=== PATIENT | male | born 1935 | race Caucasian/White ===

== ENCOUNTER 2021-08-26 10:10 | Emergency (ER) | payer MEDICARE, OTHER, SELFPAY ==
[2021-08-26] VITALS (20 sets, daily range): BP systolic 112–153; BP diastolic 67–112; PULSE 68–101; RESP 14–30; TEMP 36–36.6; O2SAT 99–100
--- NOTE | ~2021-08-26 | XR_ITS ---
EXAMINATION: XR chest 2V DATE: 08/26/2021 10:37 INDICATION: General weakness TECHNIQUE: Frontal and lateral views of the chest are obtained COMPARISON: None available FINDINGS: Cardiomegaly is noted. There is a diffuse interstitial pattern. There are small pleural eff usions. There are changes of cardiac valve surgery. There is moderate thoracic spondylosis. There are minimal airspace opacities of the lung bases. IMPRESSION: 1. Cardiomegaly with pulmonary edema. 2. Small pleural effusions. 3. Bibasilar airspace opacities, consistent with atelectasis versus pneumonia. Reviewed, dictated and finalized at location A.
--- NOTE | 2021-08-26 10:23 | ECG_ITS ---
Measurements Intervals [place] Rate: 79 P: 64 HI: 194 QRS: -20 QRSD: 158 T: 119 QT: 408 QTc: 470 Interpretive Statements SINUS RHYTHM LEFT BUNDLE BRANCH BLOCK BASELINE ARTIFACT- II, III, AVR, AVF, V2-V6 ABNORMAL ECG Electronically Signed On 08-26-2021 13:05:51 CDT by Alfredo Muhammad D.O.
--- NOTE | 2021-08-26 11:00 | ED.GENADULT ---
HPI - General Adult General Chief complaint: Unspecified Stated complaint: generalized weakness, sob with activity Time Seen by Provider: 08/26/21 10:58 Source: patient History of Present Illness HPI narrative: Patient presents with multiple complaints. Patient reports he has got left hip pain and sciatica that has been going on since last night. This morning he reported some shortness of breath and felt like his heart was racing. He also reported some lightheadedness. He was concerned about symptoms so he came to the ER for evaluation. Reports he is overall feeling better but continues have mild sensation of shortness of breath and palpitations. Reports history of valvular disorder is on blood thinners denies prior history of CHF or A. fib. 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 Denies recent fevers, cough, congestion Related Data Allergies Allergy/AdvReac Type Severity Reaction Status Date / Time No Known Allergies Allergy Verified 08/26/21 11:31 Review of Systems Review of Systems: CONSTITUTIONAL: Denies fever, chills, or sweats. EYES: Denies visual changes, redness, or discharge. ENT: Denies rhinorrhea, congestion, sore throat, or otalgia. CARDIOVASCULAR: Denies chest pain, palpitations, or edema. RESPIRATORY: Denies cough GASTROINTESTINAL: Denies abdominal pain, nausea, vomiting, or diarrhea. GENITOURINARY: Denies dysuria or hematuria. SKIN: Denies rash or itching. MUSCULOSKELETAL: Denies back pain, joint pain, or myalgia. NEUROLOGIC: Denies headache, numbness, dizziness, or weakness. PSYCHIATRIC: Denies anxiety or depression. All systems reviewed & are unremarkable except as noted in HPI and below PMFSH Past Medical History Medical History (Updated 08/26/21 @ 12:56 by Devon Smith MD) Hypertension Social History Social History Alcohol intake: current Exam Narrative: GENERAL: Well-appearing, well-nourished, and in no acute distress. HEAD: Normocephalic, atraumatic. EYES: PERRLA and EOMI. ENT: Nares clear, no rhinorrhea or epistaxis. Mucous membranes moist. NECK: Supple. No masses. No JVD CHEST: Clear to auscultation. No respiratory distress. No wheezes rales or rhonchi HEART: Regular rate and rhythm. No murmur heard. Normal peripheral pulses. ABDOMEN: Soft, nontender, nondistended, normal active bowel sounds. EXTREMITIES: Normal range of motion. No edema. SKIN: Warm, dry, no rash. NEURO: No focal deficits. Alert and oriented x3. PSYCH: Normal mood and affect. Course Reevaluation(s) Reevaluation #1: Patient reports feeling much improved results reviewed with patient. Patient comfortable outpatient plan. Date: 08/26/21 Time: 12:50 Vital Signs Vital signs: Vital Signs Temperature 36.0 C L 08/26/21 10:17 Pulse Rate 88 08/26/21 10:17 Respiratory Rate 16 08/26/21 10:17 Blood Pressure 145/67 H 08/26/21 10:17 Pulse Oximetry 99 08/26/21 10:17 Temperature 36.6 C 08/26/21 13:46 Pulse Rate 68 08/26/21 13:46 Respiratory Rate 14 08/26/21 13:46 Blood Pressure 147/84 H 08/26/21 13:46 Pulse Oximetry 100 08/26/21 13:46 Medical Decision Making MDM Narrative Medical decision making narrative: H&P as above, vss, pt looks clinically well, exam without focal areas of bony tenderness no crackles noted on exam no significant lower extremity edema, labs reassuring, img with possible pulmonary edema, additional labs/img considered, symptomatic relief available as needed, on reevaluation pt continues to looks clinically well. Symptoms remain of unclear etiology patient may have had transient arrhythmia given his known chronic valve however no elevated troponin no arrhythmias captured on the monitor EKG without acute ischemia. Patient's chest x-ray did show some mild pulmonary edema likely related to patient's valve disorder there is no crackles appreciated no tachycardia no increased oxygen requirement. Given reassuring vi
[2021-08-26 11:37] LABS: Basophils Percent Auto 0.6 % (0.2-1.2); Eosinophils Absolute Auto 0.2 K/mm3 (0-0.3); Eosinophils Percent Auto 3.5 % (0-4.4); Hematocrit 34.5 % (42.0-52.0); Immature Granulocyte Absolute 0.04 K/mm3 (0.00-0.031); Immature Granulocyte Percent A 0.6 % (0-0.5); Lymphocytes Absolute Auto 1.57 K/mm3 (0.9-3.2); Mean Corpuscular HGB Conc 31.9 g/dl (32-36); Mean Corpuscular Hemoglobin 31.8 pg (26-34); Mean Corpuscular Volume 99.7 fl (80-100); Mean Platelet Volume 9.8 fl (7.4-10.4); Monocytes Absolute Auto 0.5 K/mm3 (0.1-0.6); Monocytes Percent Auto 7.6 % (2.6-8.5); Neutrophils Absolute Auto 4.4 K/mm3 (1.3-6.7); Neutrophils Percent Auto 64.7 % (45.5-73.1); Platelet Count Result 224 k/mm3 (150-375); Red Blood Count 3.46 M/mm3 (4.6-6.20); Red Cell Distribution Width 12.9 % (11.5-14.5); White Blood Count 6.8 K/mm3 (4.5-10.0)
[2021-08-26 11:40] LABS: Add Urine Microscopic? NO; Appearance Urine Clear (Clear); Bilirubin Urine Negative (Negative); Blood Urine Negative (Negative); Color Urine Yellow (Yellow); Glucose Urine UA Negative (Negative); Ketones Urine Negative (Negative); Leukocyte Esterase Ur Negative LEU/UL (Negative); Nitrate Urine Negative (Negative); Protein Urine Negative (Negative); Specific Grav Ur 1.015 (1.001-1.035); Urobilinogen Urine Negative mg/dL (<2.0)
[2021-08-26] MEDS: Please add drug allergy info to patient profile. 1 EACH XX (11:44)
[2021-08-26] MEDS: ACETAMINOPHEN 500 MG TABLET 1000 MG PO (11:44)
[2021-08-26 11:56] LABS: Alanine Aminotransferase 28 U/L (4-50); Albumin Level 3.8 g/dL (3.5-5.1); Alkaline Phosphatase 65 U/L (38-126); Anion Gap 6 mmol/L (8-16); Aspartate Amino Transferase 37 U/L (17-59); Bilirubin,Total 0.5 mg/dL (0.2-1.3); Blood Urea Nitrogen 39 mg/dL (9-20); Calcium 9.4 mg/dL (8.4-10.2); Carbon Dioxide 26 mmol/L (22-30); Chloride 107 mmol/L (98-107); Estimated CRCL calculation 30 ml/min; Estimated Glomerular Filt Rate 39; Glucose 93 mg/dL (65-110); Potassium 4.5 mmol/L (3.4-5.0); Sodium 139 mmol/L (137-145)
[2021-08-26 12:07] LABS: Troponin I 0.016 ng/mL (0.000-0.034)
== END 2021-08-26 13:47 | disposition home or self-care (01) ==
PROVIDERS: Emergency Provider Emergency Medicine; PCP Emergency Medicine
DX: R00.2 Palpitations (principal); I10 Essential (primary) hypertension; I38 Endocarditis, valve unspecified; Z79.01 Long term (current) use of anticoagulants; I44.7 Left bundle-branch block, unspecified; I51.7 Cardiomegaly; R91.8 Other nonspecific abnormal finding of lung field
CPT/HCPCS: 36415; 71046; 80053; 81003; 84484; 85025; 93005; 99284; A9270

== ENCOUNTER 2021-10-04 11:17 | Outpatient (RCR) | payer MEDICARE, OTHER, SELFPAY ==
[2021-07-19 12:10] LABS: Basophils Absolute Auto 0.1 K/mm3 (0.0-0.1); Basophils Percent Auto 0.6 % (0.2-1.2); Eosinophils Absolute Auto 0.4 K/mm3 (0-0.3); Eosinophils Percent Auto 4.5 % (0-4.4); Hematocrit 37.4 % (42.0-52.0); Hemoglobin 11.4 g/dL (14.0-18.0); Immature Granulocyte Absolute 0.05 K/mm3 (0.00-0.031); Immature Granulocyte Percent A 0.6 % (0-0.5); Lymphocytes Absolute Auto 1.95 K/mm3 (0.9-3.2); Mean Corpuscular HGB Conc 30.5 g/dl (32-36); Mean Corpuscular Hemoglobin 31.1 pg (26-34); Mean Corpuscular Volume 102.2 fl (80-100); Mean Platelet Volume 9.8 fl (7.4-10.4); Monocytes Absolute Auto 0.6 K/mm3 (0.1-0.6); Monocytes Percent Auto 7.1 % (2.6-8.5); Neutrophils Absolute Auto 5.5 K/mm3 (1.3-6.7); Neutrophils Percent Auto 64.2 % (45.5-73.1); Platelet Count Result 227 k/mm3 (150-375); Red Blood Count 3.66 M/mm3 (4.6-6.20); Red Cell Distribution Width 12.7 % (11.5-14.5); White Blood Count 8.5 K/mm3 (4.5-10.0)
[2021-07-19 12:23] LABS: INR 1.6
[2021-07-19 14:43] LABS: Reticulocyte Hemoglobin Conten 35.1 pg (28.2-35.7); Reticulocyte Percent 2.43 % (0.7-4.3); Reticulocytes Absolute 0.09 B/L (32.2-175.7)
[2021-07-19 17:10] LABS: Alanine Aminotransferase 35 U/L (4-50); Albumin Level 4.2 g/dL (3.5-5.1); Alkaline Phosphatase 92 U/L (38-126); Anion Gap 8 mmol/L (8-16); Aspartate Amino Transferase 49 U/L (17-59); Bilirubin,Total 0.6 mg/dL (0.2-1.3); Blood Urea Nitrogen 48 mg/dL (9-20); Calcium 9.5 mg/dL (8.4-10.2); Carbon Dioxide 28 mmol/L (22-30); Chloride 105 mmol/L (98-107); Estimated Glomerular Filt Rate 30; Glucose 101 mg/dL (65-110); Potassium 5.1 mmol/L (3.4-5.0); Sodium 141 mmol/L (137-145)
[2021-07-19 17:48] LABS: Iron 63 ug/dL (49-181)
[2021-07-19 17:58] LABS: Percent Iron Saturation 20 % (20-50)
[2021-07-19 18:37] LABS: Folic Acid > 20.0 ng/mL (2.76->20)
[2021-07-21 16:29] LABS: Lactate Dehydrogenase 675 U/L (313-618)
[2021-07-23 10:49] LABS: Haptoglobin <8 mg/dL (43-212)
[2021-08-02 11:03] LABS: INR 1.9; Prothrombin Time 21.4 Seconds (11.1-14.7)
[2021-08-09 10:48] LABS: INR 2.3; Prothrombin Time 25.1 Seconds (11.1-14.7)
[2021-08-23 14:10] LABS: INR 4.5; Prothrombin Time 41.5 Seconds (11.1-14.7)
[2021-09-01 15:51] LABS: Basophils Percent Auto 0.5 % (0.2-1.2); Eosinophils Absolute Auto 0.3 K/mm3 (0-0.3); Eosinophils Percent Auto 4.5 % (0-4.4); Hematocrit 33.6 % (42.0-52.0); Hemoglobin 10.6 g/dL (14.0-18.0); Immature Granulocyte Absolute 0.02 K/mm3 (0.00-0.031); Immature Granulocyte Percent A 0.3 % (0-0.5); Lymphocytes Absolute Auto 1.59 K/mm3 (0.9-3.2); Lymphocytes Percent Auto 25.4 % (18.3-44.2); Mean Corpuscular HGB Conc 31.5 g/dl (32-36); Mean Corpuscular Hemoglobin 31.2 pg (26-34); Mean Corpuscular Volume 98.8 fl (80-100); Mean Platelet Volume 9.9 fl (7.4-10.4); Monocytes Absolute Auto 0.5 K/mm3 (0.1-0.6); Neutrophils Absolute Auto 3.8 K/mm3 (1.3-6.7); Neutrophils Percent Auto 61.3 % (45.5-73.1); Platelet Count Result 211 k/mm3 (150-375); Red Cell Distribution Width 13.1 % (11.5-14.5); White Blood Count 6.3 K/mm3 (4.5-10.0)
[2021-09-01 15:59] LABS: INR 3.5; Prothrombin Time 33.8 Seconds (11.1-14.7)
[2021-09-15 11:18] LABS: INR 2.5; Prothrombin Time 26.1 Seconds (11.1-14.7)
[2021-10-04 11:59] LABS: INR 2.8; Prothrombin Time 28.4 Seconds (11.1-14.7)
== END 2021-10-17 23:59 | disposition home or self-care (01) ==
LOC: ANHLAB 11:17
PROVIDERS: PCP Emergency Medicine; Referring Provider Internal Medicine; Visit Provider Specialist
DX: Z51.81 Encounter for therapeutic drug level monitoring (principal); Z95.2 Presence of prosthetic heart valve; Z79.01 Long term (current) use of anticoagulants
CPT/HCPCS: 36415; 80053; 82607; 82728; 82746; 83010; 83540; 83550; 83615; 85025; 85046; 85610

== ENCOUNTER 2021-12-20 10:18 | Outpatient (CLI) | payer MEDICARE, OTHER, SELFPAY ==
--- NOTE | ~2021-12-20 | CT_ITS ---
EXAMINATION: CT diagnostic chest wo con DATE: 12/20/2021 10:39 INDICATION: Thoracic aneurysm TECHNIQUE: Computed tomography (CT) of the chest was performed without intravenous contrast. The dose -length product (DLP) was 278.56 mGy-cm. Automated exposure control and iterative reconstruction tech nique were employed. COMPARISON: None FINDINGS: There is a fusiform aneurysm of the ascending aorta which measures 4.4 x 3.9 cm at the leve l of the main pulmonary artery. No dissection is identified within the limitations of noncontrast exa mination. There are changes of aortic valve repair. There is calcified coronary artery atherosclerosi s. There are small pleural effusions with pleural calcifications. Scattered pulmonary nodules measure up to 4 mm in the right middle lobe. There is dependent atelectasis in the lower lung zones. No path ologically enlarged thoracic lymph nodes are identified. The heart size is normal. There is moderate thoracic spondylosis. IMPRESSION: 1. 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 2. Small pleural effusions with pleural calcifications which may reflect prior asbestos exposure vers us prior infection. Reviewed, dictated and finalized at location [facility]. ERSHIP DIRECTOR IMPRESSION: 1. 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 2. Small pleural effusions with pleural calcifications which may reflect prior asbestos exposure versus prior infection.
== END 2021-12-20 10:19 | disposition home or self-care (01) ==
LOC: ANHIMG 10:19
PROVIDERS: PCP Emergency Medicine; Visit Provider Specialist
DX: I71.2 Thoracic aortic aneurysm, without rupture (principal); Z82.49 Family history of ischemic heart disease and other diseases of the circulatory system
CPT/HCPCS: 71250

== ENCOUNTER 2021-12-26 13:52 | Outpatient (RCR) | payer MEDICARE, OTHER, SELFPAY ==
[2021-11-02 14:39] LABS: INR 1.8; Prothrombin Time 20.2 Seconds (11.1-14.7)
[2021-12-26 14:27] LABS: INR 2.7
== END 2022-01-31 23:59 | disposition home or self-care (01) ==
LOC: ANHLAB 13:52
PROVIDERS: PCP Emergency Medicine; Visit Provider Specialist
DX: Z95.2 Presence of prosthetic heart valve (principal); Z79.01 Long term (current) use of anticoagulants
CPT/HCPCS: 36415; 85610

== ENCOUNTER 2022-08-23 11:09 | Outpatient (RCR) | payer MEDICARE, OTHER, SELFPAY ==
[2022-06-23 11:20] LABS: INR 3.3; Prothrombin Time 32.2 Seconds (11.1-14.7)
[2022-07-21 14:01] LABS: INR 3.4; Prothrombin Time 33.3 Seconds (11.1-14.7)
[2022-08-23 11:35] LABS: INR 3.4; Prothrombin Time 33.6 Seconds (11.1-14.7)
== END 2022-09-21 23:59 | disposition home or self-care (01) ==
LOC: ANHLAB 11:09
PROVIDERS: Specialist; Visit Provider Internal Medicine Cardiovascular Disease
DX: Z51.81 Encounter for therapeutic drug level monitoring (principal); Z95.2 Presence of prosthetic heart valve; Z79.01 Long term (current) use of anticoagulants
CPT/HCPCS: 36415; 85610

== ENCOUNTER 2022-09-05 11:54 | Outpatient (CLI) | payer MEDICARE, OTHER, SELFPAY ==
[2022-09-05 12:27] LABS: Hematocrit 36.3 % (42.0-52.0); Hemoglobin 11.3 g/dL (14.0-18.0); Mean Corpuscular HGB Conc 31.1 g/dl (32-36); Mean Corpuscular Hemoglobin 30.5 pg (26-34); Mean Corpuscular Volume 98.1 fl (80-100); Platelet Count Result 199 k/mm3 (150-375); Red Cell Distribution Width 12.9 % (11.5-14.5); White Blood Count 6.8 K/mm3 (4.5-10.0)
[2022-09-05 12:35] LABS: Anion Gap 9 mmol/L (8-16); Blood Urea Nitrogen 32 mg/dL (9-20); Calcium 9.1 mg/dL (8.4-10.2); Carbon Dioxide 27 mmol/L (22-30); Chloride 104 mmol/L (98-107); Estimated Glomerular Filt Rate 38; Glucose 88 mg/dL (65-110); Potassium 4.6 mmol/L (3.4-5.0); Sodium 140 mmol/L (137-145)
[2022-09-05 13:05] LABS: Creatinine Urine 65.6 mg/dL
[2022-09-05 13:10] LABS: MALB Creatinine Ratio 35.4 mg/g (0-30); Microalbumin Urine Random 23.2 mg/L (0-16.7)
== END 2022-09-05 11:55 | disposition home or self-care (01) ==
PROVIDERS: PCP Family Medicine Sports Medicine; Referring Provider Internal Medicine
DX: N18.32 Chronic kidney disease, stage 3b (principal)
CPT/HCPCS: 36415; 80048; 82043; 85027

== ENCOUNTER 2022-11-13 13:54 | Outpatient (CLI) | payer MEDICARE, SELFPAY ==
[2022-11-13 14:59] LABS: Basophils Percent Auto 0.4 % (0.2-1.2); Eosinophils Absolute Auto 0.1 K/mm3 (0-0.3); Eosinophils Percent Auto 1.3 % (0-4.4); Hematocrit 36.9 % (42.0-52.0); Hemoglobin 11.2 g/dL (14.0-18.0); Immature Granulocyte Absolute 0.02 K/mm3 (0.00-0.031); Immature Granulocyte Percent A 0.4 % (0-0.5); Lymphocytes Absolute Auto 1.03 K/mm3 (0.9-3.2); Lymphocytes Percent Auto 19.1 % (18.3-44.2); Mean Corpuscular HGB Conc 30.4 g/dl (32-36); Mean Corpuscular Hemoglobin 29.2 pg (26-34); Mean Corpuscular Volume 96.1 fl (80-100); Mean Platelet Volume 10.7 fl (7.4-10.4); Monocytes Absolute Auto 0.3 K/mm3 (0.1-0.6); Monocytes Percent Auto 5.2 % (2.6-8.5); Neutrophils Percent Auto 73.6 % (45.5-73.1); Platelet Count Result 195 k/mm3 (150-375); Red Blood Count 3.84 M/mm3 (4.6-6.20); Red Cell Distribution Width 13.4 % (11.5-14.5); White Blood Count 5.4 K/mm3 (4.5-10.0)
[2022-11-13 15:06] LABS: Alanine Aminotransferase 27 U/L (6-50); Albumin Level 3.8 g/dL (3.5-5.1); Alkaline Phosphatase 83 U/L (38-126); Anion Gap 6 mmol/L (8-16); Aspartate Amino Transferase 35 U/L (17-59); Bilirubin,Total 0.4 mg/dL (0.2-1.3); Blood Urea Nitrogen 39 mg/dL (9-20); Calcium 9.2 mg/dL (8.4-10.2); Carbon Dioxide 28 mmol/L (22-30); Chloride 107 mmol/L (98-107); Estimated Glomerular Filt Rate 34; Glucose 139 mg/dL (65-110); Lactate Dehydrogenase 245 U/L (120-246); Potassium 4.7 mmol/L (3.4-5.0); Sodium 141 mmol/L (137-145)
[2022-11-13 16:09] LABS: Iron 49 ug/dL (49-181)
[2022-11-13 16:12] LABS: Folic Acid > 20.0 ng/mL (2.76->20)
[2022-11-13 16:21] LABS: Percent Iron Saturation 16 % (20-50)
== END 2022-11-13 13:55 | disposition home or self-care (01) ==
PROVIDERS: PCP Family Medicine Sports Medicine
DX: D59.10 Autoimmune hemolytic anemia, unspecified (principal); D50.1 Sideropenic dysphagia; E53.8 Deficiency of other specified B group vitamins; N18.2 Chronic kidney disease, stage 2 (mild); D63.1 Anemia in chronic kidney disease
CPT/HCPCS: 36415; 80053; 82607; 82728; 82746; 83540; 83550; 83615; 85025; 85610

== ENCOUNTER 2023-01-12 12:02 | Outpatient (RCR) | payer MEDICARE, SELFPAY ==
[2022-10-17 10:20] LABS: INR 3.2; Prothrombin Time 31.8 Seconds (11.1-14.7)
[2022-11-13 15:10] LABS: INR 3.2; Prothrombin Time 31.8 Seconds (11.1-14.7)
[2022-12-12 15:13] LABS: INR 3.3; Prothrombin Time 32.3 Seconds (11.1-14.7)
[2023-01-12 12:30] LABS: INR 3.6; Prothrombin Time 34.6 Seconds (11.1-14.7)
== END 2023-01-15 23:59 | disposition home or self-care (01) ==
LOC: ANHLAB 12:02
PROVIDERS: PCP Family Medicine Sports Medicine; Visit Provider Internal Medicine Cardiovascular Disease
DX: Z51.81 Encounter for therapeutic drug level monitoring (principal); Z95.2 Presence of prosthetic heart valve; Z79.01 Long term (current) use of anticoagulants
CPT/HCPCS: 36415; 85610

== ENCOUNTER 2023-03-07 11:57 | Outpatient (CLI) | payer MEDICARE, SELFPAY ==
[2023-03-07 12:31] LABS: Hematocrit 38.4 % (42.0-52.0); Hemoglobin 12.3 g/dL (14.0-18.0); Mean Corpuscular Hemoglobin 29.9 pg (26-34); Mean Corpuscular Volume 93.2 fl (80-100); Mean Platelet Volume 10.9 fl (7.4-10.4); Platelet Count Result 188 k/mm3 (150-375); Red Blood Count 4.12 M/mm3 (4.6-6.20); White Blood Count 5.8 K/mm3 (4.5-10.0)
[2023-03-07 12:49] LABS: Anion Gap 5 mmol/L (8-16); Blood Urea Nitrogen 34 mg/dL (9-20); Calcium 8.9 mg/dL (8.4-10.2); Carbon Dioxide 27 mmol/L (22-30); Chloride 106 mmol/L (98-107); Estimated Glomerular Filt Rate 34; Glucose 83 mg/dL (65-110); Potassium 4.3 mmol/L (3.4-5.0); Sodium 138 mmol/L (137-145)
[2023-03-07 13:54] LABS: Creatinine Urine 75.1 mg/dL
[2023-03-07 13:58] LABS: MALB Creatinine Ratio 19.8 mg/g (0-30); Microalbumin Urine Random 14.9 mg/L (0-16.7)
== END 2023-03-07 11:58 | disposition home or self-care (01) ==
PROVIDERS: PCP Family Medicine Sports Medicine
DX: N18.32 Chronic kidney disease, stage 3b (principal)
CPT/HCPCS: 36415; 80048; 82043; 85027

== ENCOUNTER 2023-04-17 10:30 | Outpatient (RCR) | payer MEDICARE, SELFPAY ==
[2023-02-09 09:00] LABS: INR 3.7; Prothrombin Time 35.8 Seconds (11.1-14.7)
[2023-02-12 16:58] LABS: INR 2.1; Prothrombin Time 22.4 Seconds (11.1-14.7)
[2023-04-17 11:05] LABS: Prothrombin Time 33.2 Seconds (11.1-14.7)
== END 2023-05-10 23:59 | disposition home or self-care (01) ==
LOC: ANHLAB 10:30
PROVIDERS: PCP Family Medicine Sports Medicine; Visit Provider Internal Medicine Cardiovascular Disease
DX: Z51.81 Encounter for therapeutic drug level monitoring (principal); Z95.2 Presence of prosthetic heart valve; Z79.01 Long term (current) use of anticoagulants
CPT/HCPCS: 36415; 85610

== ENCOUNTER 2023-07-26 08:22 | Emergency (ER) | payer MEDICARE, SELFPAY ==
[2023-07-26] VITALS (28 sets, daily range): BP systolic 142–164; BP diastolic 68–97; PULSE 71–122; RESP 14–33; TEMP 36.1; O2SAT 93–100
--- NOTE | 2023-07-26 08:28 | ECG_ITS ---
Measurements Intervals [place] Rate: 80 P: 54 AR: 192 QRS: -37 QRSD: 164 T: 135 QT: 427 QTc: 493 Interpretive Statements SINUS RHYTHM LEFT AXIS DEVIATION LEFT BUNDLE BRANCH BLOCK ABNORMAL ECG COMPARED TO ECG 08/26/2021 11:12:19 LEFT-AXIS DEVIATION NOW PRESENT Electronically Signed On 07-26-2023 8:37:13 CDT by Alfredo Muhammad D.O.
--- NOTE | 2023-07-26 08:35 | ED.GENADULT ---
HPI - General Adult General Chief complaint: Dizziness Stated complaint: dizziness Time Seen by Provider: 07/26/23 08:27 History of Present Illness HPI narrative: Patient is a 87-year-old male who presents ER with dizziness. Reports he feels unsteady when he goes from lying to sitting or sitting to standing. Improves with time. No nausea or vomiting. No fall or trauma. Staff at patient's facility became nervous because he reported to them that he took too much Coumadin last night as they want him to come in. According to the facility paperwork patient is supposed to be on 7.5 mg of Coumadin on Mondays and Fridays and 5 mg of Coumadin every other day. Yesterday he was supposed to take a 2.5 mg tab of Coumadin, patient reports he took a 7.5 mg tab however he the facility documentation shows that he should only be taking a 5 mg tab. 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 Matos with [facility]. Patient has no numbness or weakness of the arms or legs. No slurred speech. He has no other complaints at this time. Related Data Allergies Allergy/AdvReac Type Severity Reaction Status Date / Time No Known Allergies Allergy Verified 08/26/21 11:31 Review of Systems Review of Systems: All systems reviewed & are unremarkable except as noted in HPI and below Constitutional: Constitutional: Denies chills, Denies fatigue and Denies fever(s) Eyes: Eyes: Denies change in vision ENT: Reports dizziness, Denies nasal congestion and Denies sore throat Cardiovascular: Cardiovascular: Denies chest pain, Denies rapid heart rate and Denies radiating jaw, neck or arm pain Gastrointestinal: Gastrointestinal: Reports no additional gastrointestinal complaints Genitourinary: Genitourinary: Reports no additional male genitourinary complaints Neurologic: Reports dizziness, Denies syncope, Denies headache(s), Denies focal weakness and Denies numbness PMFSH Past Medical History Medical History (Updated 07/26/23 @ 12:18 by Leonides Garcia MD) Hypertension Surgical History Surgical History (Updated 07/26/23 @ 12:18 by Leonides Garcia MD) Mechanical heart valve present Social History Social History Alcohol intake: current Exam Narrative: GENERAL: Well-appearing, well-nourished, and in no acute distress. HEAD: Normocephalic, atraumatic. EYES: PERRL and EOMI. ENT: Mucous membranes moist. TMs normal. Ear canals free of cerumen. CHEST: Clear to auscultation. No respiratory distress. HEART: Regular rate and rhythm. Normal peripheral pulses. Clicking of mechanical valve noted. ABDOMEN: Soft, nontender, nondistended. EXTREMITIES: Normal range of motion. No edema. SKIN: Warm, dry, no rash. NEURO: No focal deficits. No facial asymmetry. No upper or lower extremity drift. Sensation intact grossly in arms and legs. No slurred speech or dysarthria. Alert and oriented x3. Reproducible dizziness with lying to sitting. PSYCH: Normal mood and affect. Course Course Emergency Course: Discussed case with patient's cardiology clinic. It is recommended he take Coumadin 2.5 mg tonight. His Coumadin clinic note recommends Coumadin 7.5 mg on Mondays and 5 mg every other day after that. He will be restarted on this regimen. Patient verbalized understanding. Patient no longer dizzy after meclizine. Ambulates with steady gait. Discharge home. Vital Signs Vital signs: Vital Signs Temperature 97.0 F L 07/26/23 08:25 Pulse Rate 83 07/26/23 08:25 Respiratory Rate 21 H 07/26/23 08:25 Blood Pressure 161/92 H 07/26/23 08:25 Pulse Oximetry 93 07/26/23 08:25 Oxygen Delivery Room Air 07/26/23 08:25 Temperature 97.0 F L 07/26/23 08:25 Pulse Rate 91 07/26/23 11:19 Respiratory Rate 26 H 07/26/23 11:19 Blood Pressure 151/93 H 07/26/23 10:01 Pulse Oximetry 97 07/26/23 10:20 Oxygen Delivery Room Air 07/26/23 08:25 Medical Decision Making
[2023-07-26 08:42] LABS: Basophils Percent Auto 0.6 % (0.2-1.2); Eosinophils Absolute Auto 0.2 K/mm3 (0-0.3); Immature Granulocyte Absolute 0.01 K/mm3 (0.00-0.031); Immature Granulocyte Percent A 0.2 % (0-0.5); Lymphocytes Absolute Auto 1.09 K/mm3 (0.9-3.2); Lymphocytes Percent Auto 23.1 % (18.3-44.2); Mean Corpuscular HGB Conc 30.6 g/dl (32-36); Mean Platelet Volume 10.7 fl (7.4-10.4); Monocytes Absolute Auto 0.4 K/mm3 (0.1-0.6); Monocytes Percent Auto 8.1 % (2.6-8.5); Platelet Count Result 171 k/mm3 (150-375); Red Blood Count 3.79 M/mm3 (4.6-6.20); Red Cell Distribution Width 13.8 % (11.5-14.5); White Blood Count 4.7 K/mm3 (4.5-10.0)
[2023-07-26 08:52] LABS: Alanine Aminotransferase 34 U/L (6-50); Albumin Level 3.6 g/dL (3.5-5.1); Alkaline Phosphatase 68 U/L (38-126); Anion Gap 3 mmol/L (8-16); Aspartate Amino Transferase 49 U/L (17-59); Bilirubin,Total 0.5 mg/dL (0.2-1.3); Blood Urea Nitrogen 35 mg/dL (9-20); Calcium 8.6 mg/dL (8.4-10.2); Carbon Dioxide 28 mmol/L (22-30); Chloride 106 mmol/L (98-107); Estimated CRCL calculation 29 ml/min; Estimated Glomerular Filt Rate 38; Glucose 106 mg/dL (65-110); Potassium 4.2 mmol/L (3.4-5.0); Sodium 137 mmol/L (137-145)
[2023-07-26 09:18] LABS: INR 4.2; Partial Thromboplastin Time 34.8 SECONDS (22.3-36.8); Prothrombin Time 43.7 Seconds (11.1-14.7)
[2023-07-26] MEDS: MECLIZINE HCL 25 MG TABLET PO (09:28)
--- NOTE | 2023-07-26 11:38 | PC.NURSE ---
Patient ambulatory to the BR with use of cane. Reports very mild dizziness but reports that it is much improved from this morning.
== END 2023-07-26 12:35 ==
PROVIDERS: Emergency Provider Emergency Medicine; PCP Internal Medicine
DX: T45.511A Poisoning by anticoagulants, accidental (unintentional), initial encounter (principal); R42 Dizziness and giddiness; I10 Essential (primary) hypertension; I44.7 Left bundle-branch block, unspecified
CPT/HCPCS: 36415; 80053; 85025; 85610; 85730; 93005; 99284; 99291; A9270

== ENCOUNTER 2023-08-03 12:13 | Inpatient (IN) | payer MEDICARE, SELFPAY ==
[2023-08-03] VITALS (39 sets, daily range): BP systolic 114–188; BP diastolic 57–97; PULSE 69–106; RESP 15–36; TEMP 36.2–36.4; O2SAT 90–100; BMI 25.3
--- NOTE | ~2023-08-03 | CT_ITS ---
EXAMINATION: CTA chest PE abdomen pel DATE: 08/03/2023 13:44 INDICATION: Shortness of breath. Hypoxia. Nausea and vomiting. TECHNIQUE: Computed tomography angiography (CTA) of the chest, abdomen and pelvis was performed with 100 mL Omnipaque-350 intravenous contrast timed to evaluate the pulmonary arteries. Coronal maximum i ntensity projection 3D-reconstructions were created by the technologist. Automated exposure control a nd iterative reconstruction technique were employed. Exam dose: 605.33 mGy-cm total exam DLP. COMPARISON: 08/03/2023 portable AP chest FINDINGS: There is diagnostic contrast enhancement of the pulmonary arteries and no evidence of pulmo nary embolism. Status post sternotomy and aortic valve replacement. Cardiomegaly. No pericardial effusion. Coronary artery calcifications. There is aortic and great vess el calcification. Mild bilateral hilar and mediastinal prominence, likely reactive. Small loculated left pleural effusi ons. Fluid in the right greater fissure.. There are extensive bilateral pleural calcifications, likely due to prior asbestos exposure. Bilateral mid and particularly lower lung infiltrates, greatest involvement of the lower lobes. The liver, gallbladder, bile ducts, spleen, pancreas and pancreatic duct are unremarkable other than some calcified splenic granulomas and diffuse pancreatic atrophy. Normal morphology of the adrenal glands. Several renal cysts, the largest situated on the left, measuring 1.9 cm. No urinary tract calculus or hydroureteronephrosis. The urinary bladder is unremarkable. Prostate enlargement and calcifications. Diverticulosis of the colon; no CT evidence of diverticulitis no bowel obstruction, bowel wall thicke jacob, pneumatosis or intraperitoneal free air. There is atherosclerotic calcification but normal caliber of the abdominal aorta. No intraperitoneal or retroperitoneal or pelvic mass lesion or adenopathy or ascites. Small fat-containing umbilical hernia. Severe degenerative disease at C6-7. Old left rib fractures. Moderate to severe degenerative disc disease of the lumbar and lumbosacral spine. Bilateral hip osteo arthritis. No suspicious osteolytic or osteoblastic lesions are noted. IMPRESSION: No evidence of pulmonary embolism Status post sternotomy and aortic valve replacement Cardiomegaly, coronary and aortic atherosclerosis Extensive infiltrates primarily in the mid and lower lung zones, especially lower lobes. The retrolis thesis includes pulmonary edema, pneumonia, aspiration Bilateral pleural effusions Renal cysts Diverticulosis of the colon Reviewed, dictated and finalized at [facility]. Reviewed, dictated and finalized at location B. IMPRESSION: No evidence of pulmonary embolism Status post sternotomy and aortic valve replacement Cardiomegaly, coronary and aortic atherosclerosis Extensive infiltrates primarily in the mid and lower lung zones, especially low er lobes. The retrolisthesis includes pulmonary edema, pneumonia, aspiration Bilateral pleural effusions Renal cysts Diverticulosis of the colon
--- NOTE | ~2023-08-03 | CT_ITS ---
EXAMINATION: CT brain wo con DATE: 08/03/2023 13:44 INDICATION: Vertigo TECHNIQUE: Computed tomography (CT) of the head was performed without intravenous contrast. Sagittal and coronal reconstructions were performed. The mA was adjusted according to patient size. Iterative reconstruction technique was employed. The dose-length product was 605.33 mGy-cm. COMPARISON: None FINDINGS: No acute intracranial hemorrhage, acute infarction or abnormal extra axial fluid collection. Small ol d infarct in the left cerebellar hemisphere. There is mild to moderate scattered white matter hypoatt enuation consistent with chronic small vessel ischemic disease. Symmetric prominence of the sulci and and subarachnoid spaces overlying the convexities consistent with mild to moderate age-appropriate d iffuse cerebral volume loss. Ventricles are normal and symmetric. No mass/mass effect. Changes of nuria ateral intraocular lens replacement. Paranasal sinuses, mastoid air cells and middle ear cavities are clear. The left mastoid is hyperpneumatized. IMPRESSION: 1. Small old left cerebellar infarct. No acute intracranial process. 2. Age-related changes including mild to moderate diffuse volume loss and mild to moderate scattered white matter hypoattenuation consistent with chronic small vessel ischemic disease. Reviewed, dictated and finalized at location A. IMPRESSION: 1. Small old left cerebellar infarct. No acute intracranial process. 2. Age-related changes including mild to moderate diffuse volume loss and mild to moderate scattered white matter hypoattenuation consistent with chronic smal l vessel ischemic disease.
--- NOTE | ~2023-08-03 | XR_ITS ---
Portable chest x-ray Comparison: 08/26/2021 Clinical History: Hypoxia Findings: There is extensive hazy and interstitial pulmonary disease, with relative sparing of the l jannette apices. No definite pleural effusion. Cardiomediastinal silhouette is stable. Bones and soft tis sues are unremarkable. Impression: Extensive hazy and interstitial pulmonary disease, basilar predominant. Findings suggest moderate pul monary edema. Correlate clinically for infection. Reviewed, dictated and finalized at location . Impression: Extensive hazy and interstitial pulmonary disease, basilar predominant. Finding s suggest moderate pulmonary edema. Correlate clinically for infection.
--- NOTE | 2023-08-03 12:24 | ECG_ITS ---
Measurements Intervals [place] Rate: 77 P: 39 GA: 196 QRS: -30 QRSD: 169 T: 133 QT: 414 QTc: 471 Interpretive Statements SINUS RHYTHM WITH SINUS ARRHYTHMIA POSSIBLE LEFT ATRIAL ENLARGEMENT [-0.1mV P WAVE IN V1/V2] LEFT BUNDLE BRANCH BLOCK [120+ ms QRS DURATION, 80+ ms Q/S IN V1/V2, 85+ ms R IN I/aVL/V5/V6] COMPARED TO ECG 07/26/2023 08:33:06 SINUS ARRHYTHMIA NOW PRESENT Electronically Signed On 08-03-2023 14:32:36 CDT by Rahul Jovel M.D.
[2023-08-03 12:45] LABS: Alanine Aminotransferase 40 U/L (6-50); Albumin Level 4.1 g/dL (3.5-5.1); Alkaline Phosphatase 84 U/L (38-126); Anion Gap 7 mmol/L (8-16); Aspartate Amino Transferase 57 U/L (17-59); Bilirubin,Total 0.6 mg/dL (0.2-1.3); Blood Urea Nitrogen 31 mg/dL (9-20); Calcium 9.6 mg/dL (8.4-10.2); Carbon Dioxide 24 mmol/L (22-30); Chloride 104 mmol/L (98-107); Estimated CRCL calculation 29 ml/min; Estimated Glomerular Filt Rate 38; Glucose 140 mg/dL (65-110); Lipase 66 U/L (23-300); Potassium 4.5 mmol/L (3.4-5.0); Sodium 135 mmol/L (137-145)
[2023-08-03 12:56] LABS: Basophils Percent Auto 0.5 % (0.2-1.2); Eosinophils Absolute Auto 0.2 K/mm3 (0-0.3); Eosinophils Percent Auto 3.3 % (0-4.4); Hematocrit 40.4 % (42.0-52.0); Hemoglobin 12.6 g/dL (14.0-18.0); Immature Granulocyte Absolute 0.01 K/mm3 (0.00-0.031); Immature Granulocyte Percent A 0.2 % (0-0.5); Lymphocytes Absolute Auto 1.48 K/mm3 (0.9-3.2); Lymphocytes Percent Auto 23.1 % (18.3-44.2); Mean Corpuscular HGB Conc 31.2 g/dl (32-36); Mean Corpuscular Hemoglobin 29.2 pg (26-34); Mean Corpuscular Volume 93.7 fl (80-100); Mean Platelet Volume 10.8 fl (7.4-10.4); Monocytes Absolute Auto 0.6 K/mm3 (0.1-0.6); Monocytes Percent Auto 8.9 % (2.6-8.5); Neutrophils Absolute Auto 4.1 K/mm3 (1.3-6.7); Platelet Count Result 214 k/mm3 (150-375); Red Blood Count 4.31 M/mm3 (4.6-6.20); Red Cell Distribution Width 13.6 % (11.5-14.5); White Blood Count 6.4 K/mm3 (4.5-10.0)
--- NOTE | 2023-08-03 13:01 | ED.GENADULT ---
HPI - General Adult General Chief complaint: Nausea/Vomiting/Diarrhea Stated complaint: dizzy, n/v Time Seen by Provider: 08/03/23 12:27 Source: patient, EMS, RN notes reviewed and old records reviewed Mode of arrival: EMS Limitations: other (poor historian) History of Present Illness HPI narrative: This is an 87 year old male with history of mechanical aortic valve, chronic anticoagulation who presents for evaluation of dizziness, nausea and vomiting. PAtient states he noticed dizziness this morning at 10 am when he was trying to get off the toilet. He reports spinning and he was having difficulty getting up. He also reports nausea and vomiting this morning. EMS was called and he was found to have 80% on room air so they placed him on nasal cannula. He denies chest pain. He reports weakness for 2 weeks. He also reports nonproductive cough . He noticed bilateral leg swelling today. He denies abdominal pain, diarrhea, headache. He denies focal weakness, numbness or tingling.The facility where he lives did chest xray yesterday that shows pneumonia vs CHF. Related Data Home Medications Medication Instructions Recorded Confirmed Adults Multivitamin 1 tablet PO DAILY 08/03/23 08/03/23 aspirin 81 mg tablet,delayed 81 mg PO DAILY 08/03/23 08/03/23 release fenofibrate nanocrystallized 145 145 mg PO DAILY 08/03/23 08/03/23 mg tablet ferrous sulfate 325 mg (65 mg 325 mg PO DAILY 08/03/23 08/03/23 iron) tablet folic acid 1 mg tablet 1 mg PO DAILY 08/03/23 08/03/23 glucosamine-chondroitin 250 mg-200 1 tablet PO DAILY 08/03/23 08/03/23 mg tablet (Osteo Bi-Flex) levothyroxine 150 mcg tablet 150 mcg PO DAILY 08/03/23 08/03/23 metoprolol tartrate 25 mg tablet 25 mg PO DAILY 08/03/23 08/03/23 pravastatin 40 mg tablet 40 mg PO HS 08/03/23 08/03/23 prednisone 5 mg tablet 5 mg PO DAILY 08/03/23 08/03/23 warfarin 5 mg tablet 5 mg PO DAILY 08/03/23 08/03/23 Allergies Allergy/AdvReac Type Severity Reaction Status Date / Time colesevelam Allergy Unknown Verified 08/03/23 12:34 hydrocodone Allergy Unknown Verified 08/03/23 12:34 rosuvastatin Allergy Unknown Verified 08/03/23 12:34 Review of Systems Constitutional: Constitutional: Reports weakness (2 weeks) Cardiovascular: Cardiovascular: Denies chest pain, Denies syncope, Denies rapid heart rate, Denies irregular heart rhythm, Reports leg edema and Reports dyspnea Respiratory: Respiratory: Reports chest congestion, Reports cough, Denies hemoptysis, Denies excessive phlegm production and Reports dyspnea Gastrointestinal: Gastrointestinal: Denies abdominal pain, Denies hematochezia, Denies diarrhea, Reports nausea and Reports vomiting Genitourinary: Genitourinary: Denies hematuria, Denies dysuria, Denies penile discharge and Denies testicular pain Musculoskeletal: Musculoskeletal: Denies joint swelling, Denies loss of height and Denies muscle weakness Neurologic: Reports vertigo, Denies syncope, Denies focal weakness and Reports weakness PMF Past Medical History Medical History (Updated 08/04/23 @ 08:39 by Eva Akbar MD) Autoimmune hemolytic anemia Chronic anticoagulation Chronic kidney disease Dyslipidemia Hypertension Hypothyroidism Surgical History Surgical History (Updated 08/03/23 @ 17:07 by Angelina Taylor PA-C) 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 Smoking packs per day: 2 Smoking cigarettes per day: 40.0 Years smoked: 15 Smoking pack-years: 30.00 Smoking status: Former smoker Alcohol intake: unknown Substance use: never Lack of Transportation: No
[2023-08-03] MEDS: MECLIZINE HCL 12.5 MG TABLET PO (13:04)
[2023-08-03] MEDS: FUROSEMIDE INJ 40 MG/4 ML VIAL IV PUSH ×2 (13:04→22:02)
[2023-08-03] MEDS: ONDANSETRON INJ 4 MG/2 ML VIAL IV PUSH (13:04)
[2023-08-03 13:14] LABS: Base Excess ABG -1.4 mEq/l (+/-2.0); Fractional Inspired Oxygen 60 %; HCO3 ABG 24.5 mEq/l (22.0-26.0); Methemoglobin ABG 0.2 %THb (0-1.5); Modified Allen's Test Pass; Oxygen Content ABG 16.9 %vol (16.0-22.0); Oxygen Saturation ABG 93.7 % (95.0-100.0); Oxyhemoglobin 91.8 % THb (90.0-100.0); PCO2 ABG 45.9 mmHg (35.0-45.0); PO2 ABG 72.3 mmHg (80.0-100.0); PO2 FiO2 Ratio Arterial Blood 1.21 %; Site Drawn RIGHT RADIAL; Total Hemoglobin 13.1 g/dL (12.0-18.0); pH ABG 7.345 (7.350-7.450)
[2023-08-03 13:15] LABS: Device HIGH FLOW NASAL CANN
[2023-08-03 13:17] LABS: INR 2.5; Prothrombin Time 28.7 Seconds (11.1-14.7)
[2023-08-03 13:18] LABS: Partial Thromboplastin Time 31.5 SECONDS (22.3-36.8)
[2023-08-03 13:23] LABS: NT Pro B Type Natriuretic Pept 8960 pg/mL (19.9-100); Troponin I 0.028 ng/mL (0.000-0.034)
[2023-08-03 13:26] LABS: Lactic Acid Reflex 0.9 mmol/L (0.7-2.0)
[2023-08-03 13:51] LABS: Influenza A QL RT-PCR Negative (Negative); Influenza B QL RT-PCR Negative (Negative); SARS-CoV-2 RNA PCR Negative (Negative)
[2023-08-03 14:09] LABS: Appearance Urine Clear (Clear); Bilirubin Urine Negative (Negative); Blood Urine Negative (Negative); Color Urine Yellow (Yellow); Glucose Urine UA Negative (Negative); Ketones Urine Negative (Negative); Leukocyte Esterase Ur Negative LEU/UL (Negative); Nitrate Urine Negative (Negative); Protein Urine Negative (Negative); Specific Grav Ur 1.012 (1.001-1.035); Urobilinogen Urine 0.2 mg/dL (<2.0)
[2023-08-03 14:19] LABS: Add Urine Microscopic? NO
[2023-08-03] MEDS: AZITHROMYCIN 500 MG/NS 250 ML 500 MG/250 ML BAG 250 MG IVPB (15:05)
--- NOTE | 2023-08-03 17:02 | PM.IMHP ---
H&P: HPI History of Present Illness Date/Time: 08/03/23 17:45 Chief Complaint: Nausea, vomiting, and dizziness. Narrative: This is a pleasant 87-year-old male with history of mechanical aortic valve replacement on warfarin, hypertension, hyperlipidemia, chronic kidney disease, and hypothyroidism who presented to the emergency department via EMS from [facility] for evaluation of nausea, vomiting, and dizziness. There is a virus going around his assisted living facility and nearly 2 weeks ago he developed symptoms to include sinus congestion, mild sore throat, and cough productive of clear sputum. He feels short of breath and has developed swelling in his legs the last couple of days. He has felt increasingly weak since that time and more recently he has developed nausea and vomiting. Today when he tried to get up he felt extremely lightheaded and dizzy and felt as though he was going to pass out.He denies fever, headache, neck ache, chest pain, pleuritic pain, racing heart, orthopnea, paroxysmal nocturnal dyspnea, diarrhea, dysuria, and calf pain. Emergency services were summoned and on EMS arrival he was pale and diaphoretic with an SpO2 in the 80s on room air. He was placed on 6 L nasal cannula and was requiring up to 10 L high-flow by the time he was admitted to the floor. In the ED: He was afebrile on arrival. Blood pressures have been stable if not a bit elevated. Oxygen has been weaned to 5 L. labs were significant for a WBC count of 6.4, hemoglobin 12.6, INR 2.5, sodium 135, BUN 31, creatinine 1.70, proBNP 8960, troponin 0.016. He tested negative for influenza and COVID. Head CT did not show any acute findings. CTA of the chest, abdomen, and pelvis showed was negative for pulmonary embolism but did note cardiomegaly and extensive infiltrates in the mid to lower lung zones and bilateral pleural effusions. He received a dose of azithromycin and ceftriaxone in the ED for possible pneumonia and furosemide 40 mg IV. He is being admitted to the IMU for close monitoring given high oxygen requirements and treatment of pneumonia and presumed new onset congestive heart failure. At the time my evaluation he is feeling a bit better. He reports good urine output with the Lasix. Review of Systems Review of Systems: Twelve systems were reviewed and are negative except for as per HPI. 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 Code status: Do not resuscitate. Smoking packs per day: 2 Smoking cigarettes per day: 40.0 Years smoked: 15 Smoking pack-years: 30.00 Smoking status: Former smoker Alcohol intake: unknown Substance use: never Lack of Transportation: No Lack of Food: Never True Current Housing: I Have Housing Concerned About Future Housing: No Difficulty Paying Gas/Electric Bills: No Difficulty Paying for Meds: No Currently Unemployed: No Education: Trade/Vocational Certificate Difficulty w/ Childcare or Family Care: No Spiritual care concerns: No Meds Home Medications and Allergies Home Medications Medication Instructions Recorded Confirmed Type meclizine 12.5 mg tablet 12.5 mg PO TID PRN dizziness #10 07/26/23 08/03/23 Rx tabs Adults Multivitamin 1 tablet PO DAILY 08/03/23 08/03/23 History aspirin 81 mg tablet
--- NOTE | 2023-08-03 18:02 | ADMGEN ---
This patient, Binu Adorno, was admitted to IMU Room 214-01. Patient/family oriented to hospital policies and general routines including ID bracelet, bed and alarms, visiting hours, pain management, procedures, bathroom and other care routines, personal items, smoking policy, room service/diet, and visiting hours. Information on how to activate the Rapid Response Team has been discussed. Patient/Family are encouraged to report perceived risks to care and to ask questions if they do not understand what they are told or what they should do.
[2023-08-04] VITALS (17 sets, daily range): BP systolic 116–140; BP diastolic 60–70; PULSE 74–116; RESP 16–28; TEMP 35.9–36.6; O2SAT 90–99
[2023-08-04] MEDS: PRAVASTATIN SODIUM 20 MG TABLET 40 MG PO ×2 (00:11→21:22)
--- NOTE | 2023-08-04 01:07 | ECHO_ITS ---
Patient Info Name: Binu Adorno Age: 87 years : 1935 Gender: Male Ht: 70 in Wt: 176 lbs BSA: 1.99 m2 HR: 85 bpm BP: 116 / 68 mmHg Heart Rhythm: Sinus Rhythm Technical Quality: Fair Exam Date: 08/04/2023 9:28 AM Exam Location: [facility] Pulmonary Exam Room: 214 Patient Status: Inpatient Admit Date: 08/03/2023 Staff Ordering Physician: Angelina Taylor PA-C Fractionation Supervisor: Leni Guevara RDCS Attending Provider: Seferino Jimenez MD Referring Physician: Brandon NETTLES; Exam Type: CA echo dop color flow w con Study Info Indications - CHF HTN AVR Complete two-dimensional, color flow and Doppler transthoracic echocardiogram is performed with contrast to opacify the left ventricle and to improve the deliniation of the left ventricle endocardial borders. Contrast/Agitated Saline Contrast/Ag. Saline: Definity Amount: 2.00 ml Administered By: Leni Guevara [facility] Existing IV Access: Yes IV Access Condition: patent with no signs of infiltration Summary 1. Left ventricular chamber dimension is mildly enlarged. 2. Left ventricular systolic function is severely reduced, estimated at <15%. 3. There is mildly increased left ventricular wall thickness. 4. The left ventricular diastolic function is grade I diastolic dysfunction. 5. The apex, inferior wall, inferoseptal wall, mid anterior wall, and basal anteroseptal are akinetic. 6. The basal anterior wall, basal anterolateral wall, mid anterolateral wall, and mid inferolateral wall are hypokinetic. 7. The mid anteroseptal is dyskinetic. 8. Left atrial chamber dimension is mildly enlarged. 9. There is mild regurgitation of the mechanical aortic valve. 10. There is mild to moderate mitral valve regurgitation. 11. The mitral valve has thickened leaflets and calcified leaflets. 12. There is mild tricuspid valve regurgitation. Left Ventricle Left ventricular chamber dimension is mildly enlarged. Left ventricular systolic function is severely reduced, estimated at <15%. There is mildly increased left ventricular wall thickness. The left ventricular diastolic function is grade I diastolic dysfunction. The apex, inferior wall, inferoseptal wall, mid anterior wall, and basal anteroseptal are akinetic. The basal anterior wall, basal anterolateral wall, mid anterolateral wall, and mid inferolateral wall are hypokinetic. The mid anteroseptal is dyskinetic. All other jiménez appear normal. Right Ventricle Right ventricular chamber dimension is normal. Right ventricular systolic function is normal. Left Atria Left atrial chamber dimension is mildly enlarged. Right Atria Right atrial chamber dimension is normal. Atrial Septum Intact interatrial septum visualized by color flow imaging. Aortic Valve There is no mechanical aortic valve stenosis. There is mild regurgitation of the mechanical aortic valve. Pulmonic Valve The pulmonic valve is normal. There is no pulmonic valve stenosis. There is trace pulmonic regurgitation. Mitral Valve The mitral valve has thickened leaflets and calcified leaflets. There is no mitral valve stenosis. There is mild to moderate mitral valve regurgitation. Tricuspid Valve The tricuspid valve leaflets are normal. There is no significant tricuspid valve stenosis. There is mild tricuspid valve regurgitation. No pulmonary hypertension, estimated pulmonary arterial systolic pressure is 24 mmHg. Pericardium/Pleural The pericardium appears normal. There is trivial pericardial effusion. Inferior Vena Cava Normal infer
[2023-08-04] MEDS: MENTHOL 10% / METHYL SALICYLATE 15% 57 GM TUBE 1 APPLIC TOPICAL (04:49)
[2023-08-04 05:08] LABS: Basophils Percent Auto 0.2 % (0.2-1.2); Eosinophils Absolute Auto 0.2 K/mm3 (0-0.3); Eosinophils Percent Auto 2.9 % (0-4.4); Hematocrit 39.8 % (42.0-52.0); Hemoglobin 12.4 g/dL (14.0-18.0); Immature Granulocyte Absolute 0.01 K/mm3 (0.00-0.031); Immature Granulocyte Percent A 0.2 % (0-0.5); Lymphocytes Absolute Auto 1.29 K/mm3 (0.9-3.2); Lymphocytes Percent Auto 25.3 % (18.3-44.2); Mean Corpuscular HGB Conc 31.2 g/dl (32-36); Mean Corpuscular Hemoglobin 29.2 pg (26-34); Mean Corpuscular Volume 93.6 fl (80-100); Mean Platelet Volume 11.2 fl (7.4-10.4); Monocytes Absolute Auto 0.5 K/mm3 (0.1-0.6); Monocytes Percent Auto 9.2 % (2.6-8.5); Neutrophils Absolute Auto 3.2 K/mm3 (1.3-6.7); Neutrophils Percent Auto 62.2 % (45.5-73.1); Platelet Count Result 204 k/mm3 (150-375); Red Blood Count 4.25 M/mm3 (4.6-6.20); Red Cell Distribution Width 13.7 % (11.5-14.5); White Blood Count 5.1 K/mm3 (4.5-10.0)
[2023-08-04 05:22] LABS: INR 2.5
[2023-08-04 05:24] LABS: Alanine Aminotransferase 35 U/L (6-50); Albumin Level 3.8 g/dL (3.5-5.1); Alkaline Phosphatase 70 U/L (38-126); Anion Gap 4 mmol/L (8-16); Aspartate Amino Transferase 42 U/L (17-59); Bilirubin,Total 0.6 mg/dL (0.2-1.3); Blood Urea Nitrogen 38 mg/dL (9-20); Calcium 9.4 mg/dL (8.4-10.2); Carbon Dioxide 34 mmol/L (22-30); Chloride 98 mmol/L (98-107); Estimated CRCL calculation 24 ml/min; Estimated Glomerular Filt Rate 30; Glucose 98 mg/dL (65-110); Sodium 136 mmol/L (137-145)
[2023-08-04] MEDS: LEVOTHYROXINE SODIUM 150 MCG TABLET PO (05:38)
[2023-08-04 05:44] LABS: CRP 0.9 mg/dL (<1.0)
[2023-08-04 05:48] LABS: Procalcitonin 0.1 ng/mL
--- NOTE | 2023-08-04 08:56 | PM.IMPN ---
Progress Note: A&P Assessment and Plan (1) Acute respiratory failure with hypoxia: Code(s): J96.01 - Acute respiratory failure with hypoxia Status: Acute Assessment and Plan: Likely secondary to acute onset heart failure, but appears euvolemic at this time (2) Acute exacerbation of congestive heart failure: Code(s): I50.9 - Heart failure, unspecified Status: Acute Assessment and Plan: Continue diuresis with IV Lasix for now, likely d/c soon, does not appear very fluid overloaded Strict I&Os, daily weights Echo ordered and pending Cardiology consult ordered and pending (3) Upper respiratory infection: Code(s): J06.9 - Acute upper respiratory infection, unspecified Status: Acute Assessment and Plan: Possible underlying community-acquired pneumonia, continue Rocephin azithromycin which was started 08/03 (4) Hypertension: Code(s): I10 - Essential (primary) hypertension Status: Acute Assessment and Plan: Blood pressure reviewed 08/04 (5) Chronic anticoagulation: Code(s): 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 Status: Acute Assessment and Plan: Monitor INR, currently on Coumadin for mechanical aortic valve (6) Hypothyroidism: Code(s): E03.9 - Hypothyroidism, unspecified Status: Acute Assessment and Plan: Check TSH, continue home thyroid replacement (7) Chronic kidney disease: Code(s): N18.9 - Chronic kidney disease, unspecified Status: Acute Assessment and Plan: Monitor creatinine while diuresing, appears to be near baseline which is likely 1.7-2 Plan DVT prophylaxis with SCDs GI prophylaxis not indicated Code status full code 08/03: The patient presented to the emergency department via EMS for evaluation of lightheadedness, dizziness, nausea, and vomiting as per HPI. He is also had URI symptoms for the last couple of weeks. Labs, imaging, EKG, and all reports were personally reviewed. He tested negative for influenza and COVID. Chest x-ray showed findings of moderate pulmonary edema though infection could not be excluded. Chest CTA was negative for PE but showed bilateral pleural effusions and diffuse pulmonary infiltrates with a differential to include pneumonia and edema. It appears he has new onset congestive heart failure with pleural effusions, pulmonary edema, lower extremity edema, and elevated proBNP. He has thus far had good urine output with IV furosemide. Continue Lasix 40 mg IV b.i.d. with close monitoring of volume status, renal function, and electrolytes. Echocardiogram has been ordered. Given recent URI and continued symptoms, will continue azithromycin and ceftriaxone for possible underlying pneumonia pending CRP and procalcitonin. Blood pressures were reviewed and they have been stable if not a bit high. They should improve with diuresis. Creatinine is stable on review of previous labs. He is on warfarin for mechanical aortic valve in INR is therapeutic. Wean oxygen as tolerated. His home medications will be reviewed and resumed as appropriate. Subjective Date/time seen: 08/04/23 08:56 Interval history: 87-year-old male on Coumadin for mechanical aortic valve, CKD, hypothyroidism among other comorbidities is presenting from a nursing facility with nausea, vomiting and dizziness as well as lower extremity swelling and is currently being treated for community-acquired pneumonia as well as new onset heart failure. No overnight events noted. No chest pain or shortness of breath. No nausea, vomiting or diarrhea. No fevers or chills. Still feels a little weak and dizzy when standing. Review of Systems Review of Systems: 12 point review of systems was assessed and was negative except as noted in the HPI Exam Narrative: General: No acute distress, alert and oriented per baseline HEENT: Atraumatic, normocephalic, mucous membranes moist
[2023-08-04] MEDS: FOLIC ACID 1 MG TABLET PO (08:57)
[2023-08-04] MEDS: FENOFIBRATE NANOCRYSTALLIZED 145 MG TABLET PO (08:57)
[2023-08-04] MEDS: ASPIRIN 81 MG ENTERIC TABLET PO (08:58)
[2023-08-04] MEDS: predniSONE 5 MG TABLET PO (08:58)
[2023-08-04] MEDS: AZITHROMYCIN 250 MG TABLET 500 MG PO (08:58)
[2023-08-04] MEDS: FERROUS SULFATE 325 MG TABLET DR BY MOUTH (08:58)
[2023-08-04] MEDS: MULTIVITAMINS THERAPEUTIC TAB (*BKC) 1 TABLET PO (08:58)
[2023-08-04] MEDS: FUROSEMIDE INJ 40 MG/4 ML VIAL IV PUSH (08:59)
[2023-08-04] MEDS: METOPROLOL TARTRATE 12.5 MG TABLET PO (08:59)
[2023-08-04] MEDS: PERFLUTREN LIPID MICROSPHERES 1.5 ML VIAL DILUTED TO 10 ML TOTAL VOLUME IV PUSH (10:15)
--- NOTE | 2023-08-04 11:32 | IVDEFINITY ---
Prior to administration of IV Definity the patient was educated on the risks and benefits of the imaging enhancing agent including potential adverse side effects. The patient verbalized understanding. Allergies were verified. No exclusion criteria were identified and at least one of the following inclusion criteria were met: 1) physician request, 2) patient technically difficult to image (per the [place] [employer]ocardi[employer] guidelines of two or more segments not discernable within the apical view), or 3) questionable left ventricular function. ?
--- NOTE | 2023-08-04 11:47 | PM.CNCAR ---
Assessment and Plan Assessment and plan (1) Acute on chronic systolic (congestive) heart failure: Code(s): I50.23 - Acute on chronic systolic (congestive) heart failure Status: Acute Assessment and Plan: Patient has a known cardiomyopathy. Echocardiogram from 2021 showed ejection fraction 40-45%. He stated that he had a echocardiogram performed earlier this year also although records are not available for my review at this point. Continue metoprolol. Continue diuresis with furosemide 40 mg IV but reduce it down to once daily as his creatinine is already increasing. Assuming he is not on an Dequan or an Arb or Entresto because of renal insufficiency. 2D echocardiogram with Dopplers is ordered will be reviewed (2) Chronic anticoagulation: Code(s): Z79.01 - intermediate (current) use of anticoagulants Status: Acute Assessment and Plan: Continue warfarin (3) CAD (coronary artery disease): Code(s): I25.10 - Atherosclerotic heart disease of [place] coronary artery without angina pectoris Status: Acute Assessment and Plan: Continue statin, metoprolol, aspirin (4) H/O mechanical aortic valve replacement: Code(s): Z95.2 - Presence of prosthetic heart valve Status: Acute Assessment and Plan: Functioning normally at last evaluation. Echo pending. Continue warfarin (5) Hypertension: Code(s): I10 - Essential (primary) hypertension Status: Acute Assessment and Plan: Blood pressure reasonable goal (6) Chronic kidney disease: Code(s): N18.9 - Chronic kidney disease, unspecified Status: Acute Assessment and Plan: Follow renal History of Present Illness History of Present Illness Consult date/time: 08/04/23 11:47 Requesting physician: Crista Damon DO Consult reason: congestive heart failure Reason For Visit: Acute Respiratory Failure with Hypoxia Narrative: Date of service 08/04/2023 Reason consultation CHF Requesting provider: Dr. Damon History: Patient is a 7-year-old male has history of coronary disease and bypass grafting as well as aortic valve replacement on warfarin. He currently resides still [facility]. He also has chronic kidney disease hypothyroidism hypertension hyperlipidemia cardiomyopathy. He does have a diagnosis of heart failure and follows with Dr. Matos as an outpatient. He has not been feeling well over the past couple of weeks. Reportedly has been having some nausea vomiting dizziness and there was reportedly a virus going around his living facility. He has been increasingly more weak any came to the hospital as EMS was called because he was pale, diaphoretic with oxygen level was in the 80s. Upon arrival to the ER a BNP was drawn which was nearly 9000. Troponin was negative. CT scan as well as chest x-ray is concerning for CHF and he has been admitted and currently undergoing diuresis. He feels a little bit better although listless. He denies any chest pain. He admits to having some worsening swelling over the past couple weeks, worsening shortness of breath over the past couple weeks and some dizziness. He denies any syncope, paroxysmal nocturnal dyspnea, orthopnea, bleeding problems or palpitation Review of Systems Review of Systems: All systems reviewed & are unremarkable except as noted in HPI and below Constitutional: Constitutional: Denies body ache(s) Eyes: Eyes: Denies blurry vision ENT: Reports Normal hearing present Cardiovascular: Cardiovascular: Denies chest pain and Reports pedal edema Respiratory: Respiratory: Reports dyspnea Gastrointestinal: Gastrointestinal: Denies abdominal pain and Reports vomiting Genitourinary: Genitourinary: Denies hematuria Musculoskeletal: Musculoskeletal: Denies back pain Integumentary/Breasts: Skin/Breast: Denies skin pain Neurologic: Denies Abnormal speech present Psychiatric: Psychiatric: Denies anxiety Endocrine: Endocrine
[2023-08-04] MEDS: WARFARIN (*PBKC) 5 MG TABLET PO (18:43)
[2023-08-05] VITALS (20 sets, daily range): BP systolic 91–153; BP diastolic 52–90; PULSE 67–98; RESP 12–20; TEMP 36.3–36.9; O2SAT 90–100
[2023-08-05 05:00] LABS: Basophils Percent Auto 0.4 % (0.2-1.2); Eosinophils Absolute Auto 0.2 K/mm3 (0-0.3); Eosinophils Percent Auto 4.1 % (0-4.4); Hematocrit 38.6 % (42.0-52.0); Immature Granulocyte Absolute 0.01 K/mm3 (0.00-0.031); Immature Granulocyte Percent A 0.2 % (0-0.5); Lymphocytes Absolute Auto 1.71 K/mm3 (0.9-3.2); Lymphocytes Percent Auto 30.3 % (18.3-44.2); Mean Corpuscular HGB Conc 31.1 g/dl (32-36); Mean Corpuscular Hemoglobin 29.1 pg (26-34); Mean Corpuscular Volume 93.7 fl (80-100); Mean Platelet Volume 11.2 fl (7.4-10.4); Monocytes Absolute Auto 0.6 K/mm3 (0.1-0.6); Monocytes Percent Auto 9.7 % (2.6-8.5); Neutrophils Absolute Auto 3.1 K/mm3 (1.3-6.7); Neutrophils Percent Auto 55.3 % (45.5-73.1); Platelet Count Result 183 k/mm3 (150-375); Red Blood Count 4.12 M/mm3 (4.6-6.20); Red Cell Distribution Width 13.4 % (11.5-14.5); White Blood Count 5.7 K/mm3 (4.5-10.0)
[2023-08-05 05:17] LABS: Alanine Aminotransferase 31 U/L (6-50); Albumin Level 3.6 g/dL (3.5-5.1); Alkaline Phosphatase 71 U/L (38-126); Anion Gap 4 mmol/L (8-16); Aspartate Amino Transferase 37 U/L (17-59); Bilirubin,Total 0.5 mg/dL (0.2-1.3); Blood Urea Nitrogen 49 mg/dL (9-20); Calcium 9.2 mg/dL (8.4-10.2); Carbon Dioxide 36 mmol/L (22-30); Chloride 96 mmol/L (98-107); Estimated CRCL calculation 21 ml/min; Estimated Glomerular Filt Rate 26; Glucose 108 mg/dL (65-110); Potassium 4.7 mmol/L (3.4-5.0); Sodium 136 mmol/L (137-145)
[2023-08-05] MEDS: LEVOTHYROXINE SODIUM 150 MCG TABLET PO (06:06)
--- NOTE | 2023-08-05 08:27 | PM.IMPN ---
Progress Note: A&P Assessment and Plan (1) Acute respiratory failure with hypoxia: Code(s): J96.01 - Acute respiratory failure with hypoxia Status: Acute Assessment and Plan: Likely secondary to acute onset heart failure, but appears euvolemic at this time (2) Acute exacerbation of congestive heart failure: Code(s): I50.9 - Heart failure, unspecified Status: Acute Assessment and Plan: Continue diuresis with IV Lasix for now, likely d/c soon, does not appear very fluid overloaded Strict I&Os, daily weights Echo 08/04 showing an EF of less than 15% with grade 1 diastolic dysfunction, mild valvular disease and no significant pulmonary hypertension noted Cardiology consult appreciated (3) Upper respiratory infection: Code(s): J06.9 - Acute upper respiratory infection, unspecified Status: Acute Assessment and Plan: Possible underlying community-acquired pneumonia, continue rocephin + azithromycin, which was started 08/03 (4) Hypertension: Code(s): I10 - Essential (primary) hypertension Status: Acute Assessment and Plan: Blood pressure reviewed 08/05 (5) Chronic anticoagulation: Code(s): 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 Status: Acute Assessment and Plan: Monitor INR, currently on Coumadin for mechanical aortic valve Stable at 2.5 (6) Hypothyroidism: Code(s): E03.9 - Hypothyroidism, unspecified Status: Acute Assessment and Plan: TSH wnl, continue home thyroid replacement (7) Chronic kidney disease: Code(s): N18.9 - Chronic kidney disease, unspecified Status: Acute Assessment and Plan: Monitor creatinine while diuresing, appears to be near baseline which is likely 1.7-2 Slightly increased with lasix, up to 2.4 Plan DVT prophylaxis with SCDs GI prophylaxis not indicated Code status DNR Subjective Date/time seen: 08/05/23 08:27 Interval history: 87-year-old male on Coumadin for mechanical aortic valve, CKD, hypothyroidism among other comorbidities is presenting from a nursing facility with nausea, vomiting and dizziness as well as lower extremity swelling and is currently being treated for community-acquired pneumonia as well as new onset heart failure. No overnight events noted. No chest pain or shortness of breath. No nausea, vomiting or diarrhea. No fevers or chills. States he feels quite weak and tired today, more than yesterday. Review of Systems Review of Systems: 12 point review of systems was assessed and was negative except as noted in the HPI Exam Narrative: General: No acute distress, alert and oriented per baseline HEENT: Atraumatic, normocephalic, mucous membranes moist CV: Regular rate and rhythm, S1, S2, no JVD Lungs: Clear to auscultation bilaterally, no rales or crackles noted, no wheezes, good air entry Abdomen: Soft, nontender, nondistended Extremities: Normal to inspection, no edema Skin: No rashes noted, no lesions or wounds seen Psych: Euthymic, normal affect Objective Data Vital Signs Vital Signs: Vital Signs - 24 hr 08/04/23 08:59 08/04/23 10:00 08/04/23 12:00 Temperature 97.6 F Pulse Rate 91 74 116 H Respiratory Rate 28 H Blood Pressure 130/69 Pulse Oximetry 99 Oxygen Delivery Oxygen Flow Rate 08/04/23 12:00 08/04/23 12:00 08/04/23 14:00 Temperature Pulse Rate 85 85 Respiratory Rate Blood Pressure Pulse Oximetry 96 Oxygen Delivery Nasal Cannula Oxygen Flow Rate 3 08/04/23 16:00 08/04/23 16:00 08/04/23 18:00 Temperature 97.4 F L Pulse Rate 80 93 88 Respiratory Rate 20 Blood Pressure 121/68 Pulse Oximetry 98 Oxygen Delivery Oxygen Flow Rate 08/04/23 16:00 08/04/23 20:00 08/04/23 20:12 Temperature 97.8 F Pulse Rate 85 Respiratory Rate 20 Blood Pressure 133/69 133/69 Pulse Oximetry 96 93 Oxygen Delivery N
[2023-08-05] MEDS: ASPIRIN 81 MG ENTERIC TABLET PO (09:29)
[2023-08-05] MEDS: AZITHROMYCIN 250 MG TABLET 500 MG PO (09:29)
[2023-08-05] MEDS: predniSONE 5 MG TABLET PO (09:29)
[2023-08-05] MEDS: METOPROLOL TARTRATE 12.5 MG TABLET PO (09:30)
[2023-08-05] MEDS: FERROUS SULFATE 325 MG TABLET DR BY MOUTH (09:30)
[2023-08-05] MEDS: MULTIVITAMINS THERAPEUTIC TAB (*BKC) 1 TABLET PO (09:30)
[2023-08-05] MEDS: FENOFIBRATE NANOCRYSTALLIZED 145 MG TABLET PO (09:30)
[2023-08-05] MEDS: FOLIC ACID 1 MG TABLET PO (09:31)
--- NOTE | 2023-08-05 09:41 | PC.NURSE ---
6950 Dr. Damon at bedside. Hold Lasix per her orders.
--- NOTE | 2023-08-05 10:12 | PM.PNCARD ---
Progress Note: A&P Assessment and Plan (1) Acute on chronic systolic (congestive) heart failure: Code(s): I50.23 - Acute on chronic systolic (congestive) heart failure Status: Acute Assessment and Plan: Patient has a known cardiomyopathy. Echocardiogram from 2021 showed ejection fraction 40-45%. Echocardiogram performed yesterday shows markedly diminished ejection fraction. Will transition his metoprolol to Toprol XL 25 mg p.o. daily. He has significant renal impairment which shows also going to limit use of Dequan or an Arb or Entresto. 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 Continue warfarin (5) Hypertension: Code(s): I10 - Essential (primary) hypertension Status: Acute Assessment and Plan: Blood pressure reasonable goal (6) Chronic kidney disease: Code(s): N18.9 - Chronic kidney disease, unspecified Status: Acute Assessment and Plan: Follow renal function Subjective Date/time seen: 08/05/23 10:12 Interval history: 87-year-old male on Coumadin for mechanical aortic valve, CKD, hypothyroidism among other comorbidities is presenting from a nursing facility with nausea, vomiting and dizziness as well as lower extremity swelling and is currently being treated for community-acquired pneumonia as well as new onset heart failure. Date of service 08/05/2023: No chest pain. No shortness of breath. Review of Systems Review of Systems: All systems reviewed & are unremarkable except as noted in HPI and below Constitutional: Constitutional: Denies body ache(s) and Denies excessive sweating Eyes: Eyes: Denies blurry vision ENT: Reports Normal hearing present Cardiovascular: Cardiovascular: Denies chest pain, Reports pedal edema and Reports dyspnea Respiratory: Respiratory: Reports dyspnea Gastrointestinal: Gastrointestinal: Denies abdominal pain and Reports vomiting Genitourinary: Genitourinary: Denies hematuria Musculoskeletal: Musculoskeletal: Denies back pain Integumentary/Breasts: Skin/Breast: Denies skin pain Neurologic: Reports Normal hearing present and Denies Abnormal speech present Psychiatric: Psychiatric: Denies anxiety Endocrine: Endocrine: Denies excessive sweating Hematologic/Lymphatic: Hematologic/Lymphatic: Denies easy bleeding Allergic/Immunologic: Allergic/Immunologic: Denies GI upset with certain foods Exam Narrative: Awake alert oriented appears stated age Const: General: comfortable and no acute distress HENMT: Face/Nose/Sinus: Normal nares present Mouth: Yes moist mucous membranes Eyes: General: appearance normal, both eyes and all related structures Sclera: sclerae normal Neck: Neck: supple Thyroid: thyroid normal Chest: Other: No reproducible chest wall pain to palpation Resp: Effort & Inspection: normal respiratory effort Auscultation: rales Cardio: Rate: regular rate Rhythm: regular rhythm Heart sounds: Murmur heart sound present Other: Mechanical click heard GI: Inspection: non-distended Auscultation: normal bowel sounds Skin: General skin exam: normal color Neuro: General: gait normal Cranial nerves: Yes Normal hearing present Speech: normal speech and No Abnormal speech present Extrem: General: normal to inspection Psych: Mental Status: mental st
[2023-08-05] MEDS: ISOSORBIDE MONONITRATE 30 MG TAB.ER.24H PO (11:26)
[2023-08-05] MEDS: WARFARIN (*PBKC) 2.5 MG TABLET PO (17:53)
[2023-08-05] MEDS: PRAVASTATIN SODIUM 20 MG TABLET 40 MG PO (21:40)
[2023-08-06] VITALS (11 sets, daily range): BP systolic 129–156; BP diastolic 59–72; PULSE 79–130; RESP 18–20; TEMP 36.3–36.6; O2SAT 95–98
[2023-08-06] MEDS: LEVOTHYROXINE SODIUM 150 MCG TABLET PO (05:38)
[2023-08-06 05:46] LABS: Basophils Percent Auto 0.3 % (0.2-1.2); Eosinophils Absolute Auto 0.3 K/mm3 (0-0.3); Hematocrit 40.3 % (42.0-52.0); Hemoglobin 12.8 g/dL (14.0-18.0); Immature Granulocyte Absolute 0.01 K/mm3 (0.00-0.031); Immature Granulocyte Percent A 0.2 % (0-0.5); Lymphocytes Absolute Auto 1.64 K/mm3 (0.9-3.2); Lymphocytes Percent Auto 26.2 % (18.3-44.2); Mean Corpuscular HGB Conc 31.8 g/dl (32-36); Mean Corpuscular Hemoglobin 29.3 pg (26-34); Mean Corpuscular Volume 92.2 fl (80-100); Mean Platelet Volume 11.3 fl (7.4-10.4); Monocytes Absolute Auto 0.5 K/mm3 (0.1-0.6); Monocytes Percent Auto 7.5 % (2.6-8.5); Neutrophils Absolute Auto 3.9 K/mm3 (1.3-6.7); Neutrophils Percent Auto 61.8 % (45.5-73.1); Platelet Count Result 213 k/mm3 (150-375); Red Blood Count 4.37 M/mm3 (4.6-6.20); Red Cell Distribution Width 13.2 % (11.5-14.5); White Blood Count 6.3 K/mm3 (4.5-10.0)
[2023-08-06 05:57] LABS: Alanine Aminotransferase 33 U/L (6-50); Albumin Level 4.2 g/dL (3.5-5.1); Alkaline Phosphatase 72 U/L (38-126); Anion Gap 6 mmol/L (8-16); Aspartate Amino Transferase 42 U/L (17-59); Bilirubin,Total 0.7 mg/dL (0.2-1.3); Blood Urea Nitrogen 48 mg/dL (9-20); Calcium 9.4 mg/dL (8.4-10.2); Carbon Dioxide 29 mmol/L (22-30); Chloride 100 mmol/L (98-107); Estimated CRCL calculation 24 ml/min; Estimated Glomerular Filt Rate 30; Glucose 105 mg/dL (65-110); Potassium 4.5 mmol/L (3.4-5.0); Sodium 135 mmol/L (137-145)
[2023-08-06] MEDS: ASPIRIN 81 MG ENTERIC TABLET PO (08:43)
[2023-08-06] MEDS: ISOSORBIDE MONONITRATE 30 MG TAB.ER.24H PO (08:43)
[2023-08-06] MEDS: AZITHROMYCIN 250 MG TABLET 500 MG PO (08:44)
[2023-08-06] MEDS: FUROSEMIDE INJ 40 MG/4 ML VIAL IV PUSH (08:44)
[2023-08-06] MEDS: FENOFIBRATE NANOCRYSTALLIZED 145 MG TABLET PO (08:44)
[2023-08-06] MEDS: FOLIC ACID 1 MG TABLET PO (08:44)
[2023-08-06] MEDS: MULTIVITAMINS THERAPEUTIC TAB (*BKC) 1 TABLET PO (08:44)
[2023-08-06] MEDS: FERROUS SULFATE 325 MG TABLET DR BY MOUTH (08:44)
[2023-08-06] MEDS: METOPROLOL SUCCINATE EXT REL 25 MG TABCR PO (08:44)
[2023-08-06] MEDS: predniSONE 5 MG TABLET PO (08:44)
--- NOTE | 2023-08-06 10:17 | PM.IMPN ---
Progress Note: A&P Assessment and Plan (1) Acute respiratory failure with hypoxia: Code(s): J96.01 - Acute respiratory failure with hypoxia Status: Acute Assessment and Plan: Likely secondary to acute onset heart failure, but appears euvolemic at this time (2) Acute exacerbation of congestive heart failure: Code(s): I50.9 - Heart failure, unspecified Status: Acute Assessment and Plan: Continue diuresis with IV Lasix for now, likely d/c soon, does not appear very fluid overloaded Strict I&Os, daily weights Echo 08/04 showing an EF of less than 15% with grade 1 diastolic dysfunction, mild valvular disease and no significant pulmonary hypertension noted Cardiology consult appreciated Initiating GDMT with imkvngr and varshasto (3) Upper respiratory infection: Code(s): J06.9 - Acute upper respiratory infection, unspecified Status: Acute Assessment and Plan: Possible underlying community-acquired pneumonia, continue rocephin + azithromycin, which was started 08/03 (4) Hypertension: Code(s): I10 - Essential (primary) hypertension Status: Acute Assessment and Plan: Blood pressure reviewed 08/06 (5) Chronic anticoagulation: Code(s): Z79.01 - director long term care (current) use of anticoagulants Status: Acute Assessment and Plan: Monitor INR, currently on Coumadin for mechanical aortic valve Stable at 2.5 (6) Hypothyroidism: Code(s): E03.9 - Hypothyroidism, unspecified Status: Acute Assessment and Plan: TSH wnl, continue home thyroid replacement (7) Chronic kidney disease: Code(s): N18.9 - Chronic kidney disease, unspecified Status: Acute Assessment and Plan: Monitor creatinine while diuresing, appears to be near baseline which is likely 1.7-2 Slightly increased with lasix, up to 2.4 Plan DVT prophylaxis with SCDs GI prophylaxis not indicated Code status DNR Subjective Date/time seen: 08/06/23 10:17 Interval history: 87-year-old male on Coumadin for mechanical aortic valve, CKD, hypothyroidism among other comorbidities is presenting from a nursing facility with nausea, vomiting and dizziness as well as lower extremity swelling and is currently being treated for community-acquired pneumonia as well as worsening heart failure. No overnight events noted. No chest pain or shortness of breath. No nausea, vomiting or diarrhea. No fevers or chills. Review of Systems Review of Systems: 12 point review of systems was assessed and was negative except as noted in the HPI Exam Narrative: General: No acute distress, alert and oriented per baseline HEENT: Atraumatic, normocephalic, mucous membranes moist CV: Regular rate and rhythm, S1, S2, no JVD Lungs: Clear to auscultation bilaterally, no rales or crackles noted, no wheezes, good air entry Abdomen: Soft, nontender, nondistended Extremities: Normal to inspection, no edema Skin: No rashes noted, no lesions or wounds seen Psych: Euthymic, normal affect Objective Data Vital Signs Vital Signs: Vital Signs - 24 hr 08/05/23 12:00 08/05/23 12:00 08/05/23 12:00 Temperature 97.6 F Pulse Rate 77 80 Respiratory Rate 12 Blood Pressure 103/64 Pulse Oximetry 98 Oxygen Delivery Room Air 08/05/23 14:00 08/05/23 16:00 08/05/23 16:00 Temperature 97.3 F L Pulse Rate 90 88 Respiratory Rate 12 Blood Pressure 104/63 Pulse Oximetry 96 Oxygen Delivery Room Air 08/05/23 16:00 08/05/23 18:00 08/05/23 19:42 Temperature 98.5 F Pulse Rate 72 92 84 Respiratory Rate 12 Blood Pressure 148/79 H Pulse Oximetry 100 Oxygen Delivery 08/05/23 20:46 08/05/23 20:47 08/05/23 20:47 Temperature Pulse Rate Respiratory Rate Blood Pressure 153/71 H 129/80 103/74 Pulse Oximetry Oxygen Delivery 08/05/23 21:00 08/05/23 20:00 08/05/23 22:00 Temperature Pulse Rat
--- NOTE | 2023-08-06 10:32 | PM.PNCARD ---
Progress Note: A&P Assessment and Plan (1) Acute on chronic systolic (congestive) heart failure: Code(s): I50.23 - Acute on chronic systolic (congestive) heart failure Status: Acute Assessment and Plan: Patient has a known cardiomyopathy. Echocardiogram from 2021 showed ejection fraction 40-45%. Echocardiogram performed yesterday shows markedly diminished ejection fraction, EF <15%. Looks euvolemic today, will transition back to p.o. furosemide. Continue Toprol XL 25 mg p.o. daily. He has significant renal impairment which shows also going to limit use of Dequan or an Arb or Entresto. Continue isosorbide mononitrate 30 mg daily Could consider Verquvo as outpatient, but will defer to his primary borematic operator in that regard (2) Chronic anticoagulation: Code(s): Z79.01 - assisted (current) use of anticoagulants Status: Acute Assessment and Plan: Continue warfarin (3) CAD (coronary artery disease): Code(s): I25.10 - Atherosclerotic heart disease of [place] coronary artery without angina pectoris Status: Acute Assessment and Plan: Continue statin, metoprolol, aspirin (4) H/O mechanical aortic valve replacement: Code(s): Z95.2 - Presence of prosthetic heart valve Status: Acute Assessment and Plan: Functioning normally at last evaluation. Continue warfarin (5) Hypertension: Code(s): I10 - Essential (primary) hypertension Status: Acute Assessment and Plan: Blood pressure reasonable goal (6) Chronic kidney disease: Code(s): N18.9 - Chronic kidney disease, unspecified Status: Acute Assessment and Plan: Follow renal function Subjective Date/time seen: 08/06/23 10:32 Interval history: 87-year-old male on Coumadin for mechanical aortic valve, CKD, hypothyroidism among other comorbidities is presenting from a nursing facility with nausea, vomiting and dizziness as well as lower extremity swelling and is currently being treated for community-acquired pneumonia as well as new onset heart failure. Date of service 08/05/2023: No chest pain. No shortness of breath. Date of service 08/06/2023: Feeling poorly today. Complaining of nausea and dizziness. No shortness of breath, chest pain, swelling. Review of Systems Review of Systems: All systems reviewed & are unremarkable except as noted in HPI and below Constitutional: Constitutional: Denies body ache(s) and Denies excessive sweating Eyes: Eyes: Denies blurry vision ENT: Reports Normal hearing present Cardiovascular: Cardiovascular: Denies chest pain, Reports pedal edema and Reports dyspnea Respiratory: Respiratory: Reports dyspnea Gastrointestinal: Gastrointestinal: Denies abdominal pain and Reports vomiting Genitourinary: Genitourinary: Denies hematuria Musculoskeletal: Musculoskeletal: Denies back pain Integumentary/Breasts: Skin/Breast: Denies skin pain Neurologic: Reports Normal hearing present and Denies Abnormal speech present Psychiatric: Psychiatric: Denies anxiety Endocrine: Endocrine: Denies excessive sweating Hematologic/Lymphatic: Hematologic/Lymphatic: Denies easy bleeding Allergic/Immunologic: Allergic/Immunologic: Denies GI upset with certain foods Exam Narrative: Awake alert oriented appears stated age Const: General: comfortable and no acute distress HENMT: Face/Nose/Sinus: Normal nares present Mouth: Yes moist mucous membranes Eyes: General: appearance normal, both eyes and all related structures Sclera: sclerae normal Neck: Neck: supple Thyroid: thyroid normal Chest: Other: No reproducible chest wall pain to palpation Resp: Effort & Inspection: normal respiratory effort Auscultation: clear to auscultation bilaterally Cardio: Rate: regular rate Rhythm: regular rhythm Heart sounds: Murmur heart sound present Other: Mechanical click heard GI: Inspection: non-distended Auscultatio
--- NOTE | 2023-08-06 13:37 | PM.DS ---
DS: Admitting Diagnosis Discharge Date 08/06/23 Admitting Diagnosis fatigue DS: Discharge Diagnosis Discharge Diagnosis (1) Acute respiratory failure with hypoxia: Code(s): J96.01 - Acute respiratory failure with hypoxia Status: Acute Assessment and Plan: Likely secondary to acute onset heart failure, but appears euvolemic at this time (2) Acute exacerbation of congestive heart failure: Code(s): I50.9 - Heart failure, unspecified Status: Acute Assessment and Plan: Continue diuresis with IV Lasix for now, likely d/c soon, does not appear very fluid overloaded Strict I&Os, daily weights Echo 08/04 showing an EF of less than 15% with grade 1 diastolic dysfunction, mild valvular disease and no significant pulmonary hypertension noted Cardiology consult appreciated Initiating GDMT with glendy and sherman (3) Upper respiratory infection: Code(s): J06.9 - Acute upper respiratory infection, unspecified Status: Acute Assessment and Plan: Possible underlying community-acquired pneumonia, continue rocephin + azithromycin, which was started 08/03 (4) Hypertension: Code(s): I10 - Essential (primary) hypertension Status: Acute Assessment and Plan: Blood pressure reviewed 08/06 (5) Chronic anticoagulation: Code(s): Z79.01 - [facility] (current) use of anticoagulants Status: Acute Assessment and Plan: Monitor INR, currently on Coumadin for mechanical aortic valve Stable at 2.5 (6) Hypothyroidism: Code(s): E03.9 - Hypothyroidism, unspecified Status: Acute Assessment and Plan: TSH wnl, continue home thyroid replacement (7) Chronic kidney disease: Code(s): N18.9 - Chronic kidney disease, unspecified Status: Acute Assessment and Plan: Monitor creatinine while diuresing, appears to be near baseline which is likely 1.7-2 Slightly increased with lasix, up to 2.4 Plan DVT prophylaxis with SCDs GI prophylaxis not indicated Code status DNR DS: Summary Hospital Course Hospital Course: 87-year-old male on Coumadin for mechanical aortic valve, CKD, hypothyroidism among other comorbidities is presenting from a nursing facility with nausea, vomiting and dizziness as well as lower extremity swelling and is currently being treated for community-acquired pneumonia as well as worsening heart failure. Patient has a known cardiomyopathy.? Echocardiogram from 2021 showed ejection fraction 40-45%.? Echocardiogram performed yesterday shows markedly diminished ejection fraction, EF <15%.? Looks euvolemic today, will transition back to p.o. furosemide. Continue Toprol XL 25 mg p.o. daily.? He has significant renal impairment which shows also going to limit use of Dequan or an Arb or Entresto.? Continue isosorbide mononitrate 30 mg daily Could consider Verquvo as outpatient, but will defer to his primary assistant family teacher in that regard Possible underlying community-acquired pneumonia, continue rocephin + azithromycin, which was started 08/03 See above and med rec for details. Patient was discharged in stable condition with very close outpatient follow-up with Cardiology and primary care. Time Spent with Patient Time attestation: Total time spent providing and/or coordinating discharge services: Exam Narrative: General: No acute distress, alert and oriented per baseline HEENT: Atraumatic, normocephalic, mucous membranes moist CV: Regular rate and rhythm, S1, S2, no JVD Lungs: Clear to auscultation bilaterally, no rales or crackles noted, no wheezes, good air entry Abdomen: Soft, nontender, nondistended Extremities: Normal to inspection, no edema Skin: No rashes noted, no lesions or wounds seen Psych: Euthymic, normal affect DS: Data Data Completed and Pending Labs on day of discharge: Labs from last 24 hours 08/06/23 05:16 WBC 6.3 RBC 4.37 L Hgb 12.8 L Hct 40.3 L
[2023-08-07 13:19] LABS: Pneumococcal Antigen Urine Not Detected (Not Detected)
[2023-08-07 14:37] LABS: Mycoplasma IgM Antibody Titer 249 U/mL (<770)
[2023-08-08 01:13] LABS: Legionella pneumophila Ag Ur Not Detected (Not Detected)
== END 2023-08-06 15:30 | DRG 291 ==
LOC: ANHED 12:36 → ANHIMU 16:39
PROVIDERS: Physician Assistant; Preventive Medicine Aerospace Medicine; Admitting Provider Chiropractor; Emergency Provider General Practice; PCP Internal Medicine; Visit Provider Student in an Organized Health Care Education/Training Program
DX: I13.0 Hypertensive heart and chronic kidney disease with heart failure and stage 1 through stage 4 chronic kidney disease, or unspecified chronic kidney disease (principal); I50.23 Acute on chronic systolic (congestive) heart failure; J18.9 Pneumonia, unspecified organism; J96.01 Acute respiratory failure with hypoxia; D59.10 Autoimmune hemolytic anemia, unspecified; I42.9 Cardiomyopathy, unspecified; N18.9 Chronic kidney disease, unspecified; J06.9 Acute upper respiratory infection, unspecified; E78.5 Hyperlipidemia, unspecified; E03.9 Hypothyroidism, unspecified; Z20.822 Contact with and (suspected) exposure to COVID-19; Z96.651 Presence of right artificial knee joint; Z79.82 Long term (current) use of aspirin; Z95.2 Presence of prosthetic heart valve; Z79.01 Long term (current) use of anticoagulants; Z87.891 Personal history of nicotine dependence
CPT/HCPCS: 36415; 36600; 70450; 71045; 71275; 74177; 80053; 81003; 82375; 82805; 83050; 83605; 83690; 83880; 84145; 84443; 84484; 85025; 85610; 85730; 86140; 86738; 87040; 87070; 87205; 87449; 87636; 87899; 93005; 96374; 96375; 99285; A9270; C8929; J0456; J0696; J1940; J2405; J7512; Q9957; Q9967

== ENCOUNTER 2023-10-16 11:56 | Outpatient (CLI) | payer MEDICARE, SELFPAY ==
[2023-10-16 12:15] LABS: Basophils Percent Auto 0.4 % (0.2-1.2); Eosinophils Absolute Auto 0.2 K/mm3 (0-0.3); Eosinophils Percent Auto 2.1 % (0-4.4); Hematocrit 36.2 % (42.0-52.0); Hemoglobin 11.5 g/dL (14.0-18.0); Immature Granulocyte Absolute 0.03 K/mm3 (0.00-0.031); Immature Granulocyte Percent A 0.4 % (0-0.5); Immature Reticulocyte Fraction 8.6 % (3.0-15.9); Lymphocytes Absolute Auto 0.95 K/mm3 (0.9-3.2); Lymphocytes Percent Auto 12.6 % (18.3-44.2); Mean Corpuscular HGB Conc 31.8 g/dl (32-36); Mean Corpuscular Hemoglobin 30.6 pg (26-34); Mean Corpuscular Volume 96.3 fl (80-100); Mean Platelet Volume 9.7 fl (7.4-10.4); Monocytes Absolute Auto 0.5 K/mm3 (0.1-0.6); Monocytes Percent Auto 6.1 % (2.6-8.5); Neutrophils Absolute Auto 5.9 K/mm3 (1.3-6.7); Neutrophils Percent Auto 78.4 % (45.5-73.1); Platelet Count Result 202 k/mm3 (150-375); Red Blood Count 3.76 M/mm3 (4.6-6.20); Red Cell Distribution Width 13.7 % (11.5-14.5); Reticulocyte Percent 1.44 % (0.7-4.3); Reticulocytes Absolute 0.05 M/mm3 (0.02-0.1); White Blood Count 7.6 K/mm3 (4.5-10.0)
[2023-10-16 13:14] LABS: Iron 78 ug/dL (49-181)
[2023-10-16 13:16] LABS: Alanine Aminotransferase 33 U/L (6-50); Alkaline Phosphatase 81 U/L (38-126); Anion Gap 7 mmol/L (8-16); Aspartate Amino Transferase 41 U/L (17-59); Bilirubin,Total 0.6 mg/dL (0.2-1.3); Blood Urea Nitrogen 58 mg/dL (9-20); Calcium 9.6 mg/dL (8.4-10.2); Carbon Dioxide 27 mmol/L (22-30); Chloride 103 mmol/L (98-107); Estimated Glomerular Filt Rate 27; Glucose 107 mg/dL (65-110); Lactate Dehydrogenase 264 U/L (120-246); Potassium 4.9 mmol/L (3.4-5.0); Sodium 137 mmol/L (137-145)
[2023-10-16 13:24] LABS: Percent Iron Saturation 24 % (20-50)
[2023-10-20 09:02] LABS: Haptoglobin <8 mg/dL (43-212)
== END 2023-10-16 11:57 | disposition home or self-care (01) ==
LOC: ANHLAB 11:59
PROVIDERS: Nurse Practitioner Family; PCP Student in an Organized Health Care Education/Training Program; Visit Provider Internal Medicine Hematology & Oncology
DX: D59.10 Autoimmune hemolytic anemia, unspecified (principal); D50.8 Other iron deficiency anemias
CPT/HCPCS: 36415; 80053; 82728; 83010; 83540; 83550; 83615; 85025; 85046

== ENCOUNTER 2024-02-12 09:18 | Outpatient (CLI) | payer MEDICARE, SELFPAY ==
[2024-02-12 09:43] LABS: Basophils Percent Auto 0.4 % (0.2-1.2); Eosinophils Absolute Auto 0.3 K/mm3 (0-0.3); Eosinophils Percent Auto 5.3 % (0-4.4); Hematocrit 34.4 % (42.0-52.0); Immature Granulocyte Absolute 0.01 K/mm3 (0.00-0.031); Immature Granulocyte Percent A 0.2 % (0-0.5); Immature Reticulocyte Fraction 9.9 % (3.0-15.9); Lymphocytes Percent Auto 29.5 % (18.3-44.2); Mean Corpuscular Hemoglobin 30.8 pg (26-34); Mean Corpuscular Volume 96.4 fl (80-100); Mean Platelet Volume 9.5 fl (7.4-10.4); Monocytes Absolute Auto 0.4 K/mm3 (0.1-0.6); Monocytes Percent Auto 8.9 % (2.6-8.5); Neutrophils Absolute Auto 2.6 K/mm3 (1.3-6.7); Neutrophils Percent Auto 55.7 % (45.5-73.1); Platelet Count Result 192 k/mm3 (150-375); Red Blood Count 3.57 M/mm3 (4.6-6.20); Red Cell Distribution Width 12.7 % (11.5-14.5); Reticulocyte Hemoglobin Conten 33.1 pg (28.2-36.6); Reticulocyte Percent 1.44 % (0.7-4.3); Reticulocytes Absolute 0.05 10^6/uL (0.02-0.10); White Blood Count 4.7 K/mm3 (4.5-10.0)
[2024-02-12 10:42] LABS: Iron 91 ug/dL (49-181)
[2024-02-12 10:45] LABS: Alanine Aminotransferase 29 U/L (6-50); Alkaline Phosphatase 73 U/L (38-126); Anion Gap 6 mmol/L (4-12); Aspartate Amino Transferase 38 U/L (17-59); Bilirubin,Total 0.5 mg/dL (0.2-1.3); Blood Urea Nitrogen 48 mg/dL (9-20); Calcium 9.6 mg/dL (8.4-10.2); Carbon Dioxide 28 mmol/L (22-30); Chloride 107 mmol/L (98-107); Estimated Glomerular Filt Rate 27; Glucose 98 mg/dL (65-110); Lactate Dehydrogenase 278 U/L (120-246); Potassium 4.4 mmol/L (3.4-5.0); Sodium 141 mmol/L (137-145)
[2024-02-12 10:52] LABS: Percent Iron Saturation 32 % (20-50)
[2024-02-12 11:00] LABS: INR 2.3; Prothrombin Time 26.9 Seconds (11.1-14.7)
[2024-02-14 10:24] LABS: Haptoglobin <8 mg/dL (43-212)
== END 2024-02-12 09:19 | disposition home or self-care (01) ==
PROVIDERS: Nurse Practitioner Family; Specialist; PCP Student in an Organized Health Care Education/Training Program; Visit Provider Internal Medicine Hematology & Oncology
DX: D59.10 Autoimmune hemolytic anemia, unspecified (principal); D50.8 Other iron deficiency anemias; Z79.01 Long term (current) use of anticoagulants; Z95.2 Presence of prosthetic heart valve
CPT/HCPCS: 36415; 80053; 82728; 83010; 83540; 83550; 83615; 85025; 85046; 85610

== ENCOUNTER 2024-06-19 13:24 | Outpatient (CLI) | payer MEDICARE, SELFPAY ==
[2024-06-19 13:45] LABS: Hematocrit 33.4 % (42.0-52.0); Hemoglobin 10.4 g/dL (14.0-18.0); Mean Corpuscular HGB Conc 31.1 g/dl (32-36); Mean Corpuscular Hemoglobin 30.4 pg (26-34); Mean Corpuscular Volume 97.7 fl (80-100); Mean Platelet Volume 10.2 fl (7.4-10.4); Platelet Count Result 174 k/mm3 (150-375); Red Blood Count 3.42 M/mm3 (4.6-6.20); Red Cell Distribution Width 12.8 % (11.5-14.5); White Blood Count 4.4 K/mm3 (4.5-10.0)
[2024-06-19 13:49] LABS: Blood Urea Nitrogen 36 mg/dL (8-26); Carbon Dioxide 24 mmol/L (22-30); Chloride 108 mmol/L (98-109); Estimated Glomerular Filt Rate 27; Glucose 107 mg/dL (70-105); Ionized Calcium (POC) 1.25 mmol/L (1.11-1.31); Potassium 5.2 mmol/L (3.5-4.9); Sodium 142 mmol/L (138-146)
== END 2024-06-19 13:25 | disposition home or self-care (01) ==
LOC: ANHLAB 13:26
PROVIDERS: PCP Student in an Organized Health Care Education/Training Program; Visit Provider Internal Medicine Hematology & Oncology
DX: D59.10 Autoimmune hemolytic anemia, unspecified (principal)
CPT/HCPCS: 36415; 80047; 85027

== ENCOUNTER 2024-09-11 10:48 | Outpatient (CLI) | payer MEDICARE, SELFPAY ==
[2024-09-11 14:19] LABS: Folic Acid > 20.0 ng/mL (2.76->20)
[2024-09-11 16:32] LABS: Iron 79 ug/dL (49-181)
[2024-09-11 16:42] LABS: Percent Iron Saturation 27 % (20-50)
== END 2024-09-11 10:49 | disposition home or self-care (01) ==
LOC: ANHLAB 10:49
PROVIDERS: PCP Student in an Organized Health Care Education/Training Program; Visit Provider Internal Medicine Hematology & Oncology
DX: D50.8 Other iron deficiency anemias (principal)
CPT/HCPCS: 36415; 82607; 82728; 82746; 83540; 83550

== ENCOUNTER 2024-10-03 10:28 | Outpatient (CLI) | payer MEDICARE, SELFPAY ==
[2024-10-03 14:55] LABS: INR 2.8; Prothrombin Time 30.4 Seconds (11.1-14.7)
== END 2024-10-03 10:29 | disposition home or self-care (01) ==
LOC: ANHLAB 10:30
PROVIDERS: PCP Student in an Organized Health Care Education/Training Program; Visit Provider Internal Medicine Cardiovascular Disease
DX: Z79.01 Long term (current) use of anticoagulants (principal)
CPT/HCPCS: 36415; 85610

== ENCOUNTER 2024-11-18 11:11 | Outpatient (CLI) | payer MEDICARE, SELFPAY ==
[2024-11-18 13:06] LABS: INR 2.4; Prothrombin Time 26.4 Seconds (11.1-14.7)
== END 2024-11-18 11:12 | disposition home or self-care (01) ==
LOC: ANHLAB 11:12
PROVIDERS: Internal Medicine Cardiovascular Disease; PCP Student in an Organized Health Care Education/Training Program; Visit Provider Internal Medicine Hematology & Oncology
DX: Z79.01 Long term (current) use of anticoagulants (principal)
CPT/HCPCS: 36415; 85610

== ENCOUNTER 2024-12-08 15:15 | Outpatient (CLI) | payer MEDICARE, SELFPAY ==
--- OUTSIDE RECORDS SUMMARY | 2024-12-08 15:23 | XMS_ITS | Clinical Summary ---
Author Organization [facility] Pam Black Address [address] [place] [address] Care Team Providers Care Area Forester Name Role Phone Fransisco Torres Primary Care Provider + Allergies Active Allergy Reactions Criticality Noted Date Comments Oxycodone Hallucination,Palpit a tions,Rash Medium 03/19/2023 Pt with history of altered mental status and hallucinations with oxycodone Medications aspirin (ECOTRIN EC) 81 mg Tablet, Delayed Release (E.C.) Take 81 mg by mouth daily. Active fenofibrate nanocrystallized (TRICOR) 145 mg tablet Take 145 mg by mouth daily. 3 Active ferrous sulfate 325 mg (65 mg iron) tablet Take 325 mg by mouth daily with breakfast. 2 Active hydrALAZINE (APRESOLINE) 10 mg tablet Take 10 mg by mouth 3 times daily. 3 Active levothyroxine 150 mcg tablet Take 150 mcg by mouth daily. 1 Active metoprolol succinate (TOPROL XL) 25 mg Extended Release 24 hour tablet Take 25 mg by mouth daily. 3 Active pravastatin (PRAVACHOL) 40 mg tablet Take 40 mg by mouth daily. 3 Active isosorbide mononitrate (IMDUR) 30 mg Extended Release 24 hour tablet Take 30 mg by mouth daily in the morning. 3 Active furosemide (LASIX) 40 mg tablet Take 40 mg by mouth daily. 3 Active warfarin (COUMADIN) 5 mg tablet Take 2.5 mg by mouth. 3 Active predniSONE (DELTASONE) 5 mg tabletIndications:Aut oimmune hemolytic anemia (CMS/HCC) Take 1 Tablet (5 mg) by mouth daily. 90 Tablet 4 Active folic acid (FOLVITE) 1 mg tabletIndications:Aut oimmune hemolytic anemia (CMS/HCC) TAKE 1 TABLET(1 MG) BY MOUTH DAILY 90 Tablet 1 4 Active Active Problems No known active problems Encounters Date Type Department Care Team Description 11/19/2024 External Device Data ST[facility] ABSTRACTION Provider, Abstract 11/19/[address] [facility] Oncology and Hematology [facility] [address] [place] [address] Yovany Neves MD 11/18/2024 External Device Data STL ABSTRACTION Provider, Abstract 09/19/2024 11:00 AM CLAIMS CUSTOMER SERVICE REPRESENTATIVE Office Visit [facility] Oncology [facility] Hematology [facility] [address] [place] [address] Yovany Neves MD Chronic anemia (Primary Dx) 09/12/[address] [facility] Oncology and Hematology [facility] [address] [place] [address] Yovany Neves MD from Last 3 Months Family History Medical History Relation Name Comments No Known Problems Brother Leukemia Daughter 1 No Known Problems Daughter 2 No Known Problems Daughter 3 No Known Problems Daughter 4 No Known Problems Daughter 5 No Known Problems Father Heart Disease Mother No Known Problems Sister 1 No Known Problems Sister 2 No Known Problems Sister 3 No Known Problems Son Relation Name Status Comments Brother Daughter 1 Daughter 2 Alive Daughter 3 Alive Daughter 4 Alive Daughter 5 Alive Father Mother Sister 1 Sister 2 Alive Sister 3 Alive Son Alive Social History Tobacco Use Types Packs/Day Years Used Date Smoking Tobacco: Former Cigarettes 2 15 0 10/29/1949 - 10/29/1964 Smokeless Tobacco: Never Tobacco Cessation:Counseling Given: Not Answered Sex and Gender Information Value Date Recorded Sex Assigned at Not on file Legal Sex Male 2:21 PM CLAIMS CUSTOMER SERVICE REPRESENTATIVE Gender Identity Not on file Sexual Orientation Not on file Last Filed Vital Signs Vital Sign Reading Time Taken Comments Blood Pressure 140/74 09/19/2024 11:17 AM CLAIMS CUSTOMER SERVICE REPRESENTATIVE Pulse 67 09/19/2024 11:17 AM CLAIMS CUSTOMER SERVICE REPRESENTATIVE Temperature 36.5 C (97.7 F) 09/19/2024 11:17 AM CLAIMS CUSTOMER SERVICE REPRESENTATIVE Respiratory Rate 18 09/19/2024 11:17 AM CLAIMS CUSTOMER SERVICE REPRESENTATIVE Oxygen Saturation 92% 09/19/2024 11:17 AM CLAIMS CUSTOMER SERVICE REPRESENTATIVE Inhaled Oxygen Concentration - - Weight 84.4 kg (186 lb) 09/19/2024 11:17 AM CLAIMS CUSTOMER SERVICE REPRESENTATIVE Height 177.8 cm (5' 10 ) 10/16/2023 11:09 AM CLAIMS CUSTOMER SERVICE REPRESENTATIVE Body Mass Index 26.69 10/16/2023 11:09 AM CLAIMS CUSTOMER SERVICE REPRESENTATIVE Plan of Treatment Upcoming Encounters Date Type Department Care Team (Late st Contact Info) Description 12/19/2024 9:00 AM CLAIMS CUSTOMER SERVICE REPRESENTATIVE Office Visit [facility] Oncology and Hematology - [place] [address] [facility] [address] [place] [address] Yovany Neves MD [address] [facility] [address] [place] [address] Health Maintenance Due Date Last Done Comments RSV VACCINE (60+ or ) (1 - 1-dose 75+ series) 2011 INFLUENZA VACCINE (#1) 2024 , 08/01/2022, 08/01/2022, Additional history exists COVID-19 Vaccine (5 - 2023-2 5 season) 2024 08/01/2022, 10/11/2021, 01/07/2021, Additional history exists Medicare [place] ([place]) Preventative Visit/Annual Wellness Visit 10/29/2024 01/29/2023 DTAP/TDAP/TD VACCINES (3 - T d or Tdap) 01/28/2034 01/29/2024, 11/23/2015 PNEUMOCOCCAL VACCINE 65+ YEARS Completed 0 07/14/2020, 11/05/2019, 07/09/2018 ZOSTER VACCINE Completed 11/18/2021, 08/29, 11/27/2012 Procedures Procedure Name Priority Date/Time Associated Diagnosis Comments PROTIME-INR Routine 11/18/2024 3:34 PM CLAIMS CUSTOMER SERVICE REPRESENTATIVE IRON LEVEL Routine 09/11/2024 2:14 PM CLAIMS CUSTOMER SERVICE REPRESENTATIVE VITAMIN B12 AND FOLATE Routine 09/11/2024 12:07 PM CLAIMS CUSTOMER SERVICE REPRESENTATIVE from Last 3 Months Results * PROTIME-INR (11/18/2024 3:34 PM CLAIMS CUSTOMER SERVICE REPRESENTATIVE) Blood Yovany Neves MD HEMATOLOGY ORDERABLES Final Res ult * IRON LEVEL (09/11/2024 2:14 PM CLAIMS CUSTOMER SERVICE REPRESENTATIVE) Blood Yovany Neves MD CHEMISTRY ORDERABLES Final Resu lt * VITAMIN B12 AND FOLATE (09/11/2024 12:07 PM CLAIMS CUSTOMER SERVICE REPRESENTATIVE) Blood Yovany Neves MD CHEMISTRY ORDERABLES Final Resu lt from Last [address] [place] [address] [facility] [id number] Care Teams Area Forester Relationship Specialty Start Date End Date Fransisco Torres DO [facility] [place] [address] PCP - General Family Practice 10/16/23
--- OUTSIDE RECORDS SUMMARY | 2024-12-08 15:23 | XMS_ITS | Clinical Summary ---
Author Organization [facility] Address [address], [facility] [address] [place] [address] Phone Care Team Providers Care Theology Professor Name Role Phone Michele Sweeney MD Unavailable [phone] Yash Nava MD Primary Care Provider [phone] Allergies Active Allergy Reactions Criticality Noted Date Comments Oxycodone Hallucinations,Other (see Comments) Medium 03/19/2023 Pt with history of altered mental status and hallucinations with oxycodone Medications Multiple Vitamins-Minera ls (MULTIVITAMIN PO) Take by mouth daily. Active Misc Natural Products (OSTEO BI-FLEX TRIPLE STRENGTH PO) Take by mouth daily. Active fenofibrate (TRICOR) 145 MG Tablet Take 145 mg by mouth daily. Active aspirin EC 81 MG Tablet Delayed Response Take 81 mg by mouth daily. Active metoprolol tartrate (LOPRESSOR) 25 MG Tablet Take 12.5 mg by mouth daily. Active Warfarin Sodium (COUMADIN PO) Take 5 mg by mouth. Sun, Sun, takes 7.5 mg. 5 mg on ., Wed, Th. Sat. Sun. Active pravastatin (PRAVACHOL) 40 MG Tablet Take 40 mg by mouth daily. Active dicyclomine (BENTYL) 20 MG Tablet Take 20 mg by mouth. 1 Active levothyroxine (SYNTHROID) 150 MCG Tablet Take 150 mcg by mouth daily. Active doxazosin (CARDURA) 2 MG Tablet doxazosin 2 mg tablet Active ferrous sulfate 325 (65 Fe) MG Tablet Take 325 mg by mouth. 2 Active folic acid (FOLVITE) 1 MG TabletIndicatio ns:Folate deficiency Take 1 Tablet by mouth daily. 90 Tablet 4 3 Active predniSONE (DELTASONE) 5 MG Tablet TAKE 1 TABLET BY MOUTH DAILY 90 Tablet 2 4 Active Active Problems Patient Care Coordination No te Formatting of this note migh t be different from the original. 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 Chronic anticoagulation 07/15/2017 Anemia in chronic kidney disease 09/14/2016 Mechanical heart valve present 04/17/2016 Folate deficiency 12/23/2015 Autoimmune hemolytic anemia 07/22/2015 Knee joint replacement by other means 07/02/2012 Acquired hypothyroidism 05/10/2012 Benign essential hypertension 05/10/2012 Overview (11/23/2021): Transitioned From: Hypertension Osteoarthrosis involving lower leg 03/14/2012 Overview (11/23/2021): 2015 IMO Updt Overview: 2015 IMO Updt Resolved Problems Problem Noted Date Diagnosed Date Resolved Date Anemia in chronic kidney disease 12/23/2015 09/14/2016 Immunizations Immunization Administration Dates Next Due Influenza Vaccine 07/16/2017 Influenza, High-dose, Quadrivalent 07/11,07/14/2020,07/22/2019,2015,08/20/2015,08/25/2013 Influenza, Trivalent, Adjuvanted, PF 07/09/2018 Influenza, high-dose, trivalent, PF /03/2020,07/22/2019,07/26/2016,2014,08/25/2013 Pneumococcal Vaccine - 13 Valent 07/09/2018 Pneumococcal Vaccine Adult - 23 Valent 07/14/2020,11/05/2019 TDAP Vaccine 11/23/2015 Zoster Vaccine Recombinant 09/13/2021 Family History Medical History Relation Name Comments Leukemia/Lymphoma Daughter No Known Problems Father Heart Disease Mother Diabetes Other Heart Disease Other Hypertension Other Relation Name Status Comments Daughter Father Mother Other Social History Tobacco Use Types Packs/Day Years Used Date Smoking Tobacco: Former Cigarettes Q uit: 06/10/1965 Smokeless Tobacco: Never Tobacco Cessation:Counseling Given: Not Answered Alcohol Use Standard Drinks/Week Comments Yes 4 (1 standard drink = 0.6 oz pur e alcohol) PHQ-2 Answer Date Recorded Total Score - Questions 1-9 0 07/29 Sex and Gender Information Value Date Recorded Sex Assigned at Not on file Legal Sex Male 3:46 PM CDT Gender Identity Not on file Sexual Orientation Not on file Last Filed Vital Signs Vital Sign Reading Time Taken Comments Blood Pressure 150/88 08/16/2023 11:36 AM CDT Pulse 95 08/16/2023 11:36 AM CDT Temperature 36.8 C (98.2 F) 08/16/2023 11:36 AM CDT Respiratory Rate 18 05/17/2023 12:22 PM CDT Oxygen Saturation 94% 08/16/2023 11:36 AM CDT Inhaled Oxygen Concentration - - Weight 82.6 kg (182 lb) 08/16/2023 11:36 AM CDT Height 177.8 cm (5' 10 ) 08/16/2023 11:36 AM CDT Body Mass Index 26.11 08/16/2023 11:36 AM CDT Plan of Treatment Health Maintenance Due Date Last Done Comments Hepatitis C Virus (HCV) Screening 1935 Respiratory Syncytial Virus (RSV) Immunization (Adult) (1 - 1-dose 75+ series) 2011 Influenza Immunization (#1) 2024 09/06/2023, 06/27/2023, 08/01/2022, Additional history exists SARS-COV-2 Immunization (2023- season) 2024 08/01/2022, 10/11/2021, 01/07/2021, Additional history exists Td Immunization Every 10 Years (Adults With 1 Tdap) 01/28/2034 01/29/2024, 12/10/2023, 11/23/2015 Pneumococcal Immunization (50+ years) Completed 07/14/2020, 11/05/2019, 07/09/2018 Pneumococcal Immunization Combined Discontinued 07/14/2020, 11/05/2019, 07/09/2018 Zoster Immunization Completed 11/18/2021, 09/13/2021, 11/27/2012 DTaP/Tdap/Td Immunization Discontinued 2023, 12/10/2023, 11/23/2015 Hepatitis B Immunization Aged Out No longer eligible based on patient's age to complete this topic Meningococcal Immunization (ACWY) Aged Out No longer eligible based on patient's age to complete this topic Rotavirus Immunization Aged Out No lo nger eligible based on patient's age to complete this topic [facility] Care Teams Theology Professor Relationship Specialty [place] [id number] [address] PCP - General General Surgery 07/21/21 Michele Sweeney MD Consulting Physician Internal Medicine 05/07/18
--- OUTSIDE RECORDS SUMMARY | 2024-12-08 15:23 | XMS_ITS | Encounter Summary ---
Author Organization [facility] Address [address] [place] [address] Phone Care Team Providers Care Terra Cotta Setter Name Role Phone Michele Sweeney MD Unavailable [phone] Yash Nava MD Primary Care Provider [phone] Reason for Visit * Reason Comments Medication Refill Encounter Details Date Type Department Care Team (Late st Contact Info) Description 09/25/2023 Refill [facility] [address] [address] Luis Guerrero MD [address] [place] [phone] Medication Refill Social History Tobacco Use Types Packs/Day Years Used Date Smoking Tobacco: Former Cigarettes Q uit: 06/10/1965 Smokeless Tobacco: Never Alcohol Use Standard Drinks/Week Comments Yes 4 (1 standard drink = 0.6 oz pur e alcohol) PHQ-2 Answer Date Recorded Total Score - Questions 1-9 0 07/29 Sex and Gender Information Value Date Recorded Sex Assigned at Not on file Legal Sex Male 3:46 PM CDT Gender Identity Not on file Sexual Orientation Not on file documented as of this encounter Miscellaneous Notes * Telephone Encounter - Cassi Barraza RN - 09/25/2023 2:26 PM CST Refill request from pharmacy. Please fill if appropriate. 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
--- OUTSIDE RECORDS SUMMARY | 2024-12-08 15:24 | XMS_ITS | Clinical Summary ---
Author Organization [facility] Address [address] [place] [address] Care Team Providers Care Activated Sludge Attendant Name Role Phone Adonis Estrada MD Unavailable [phone] Kev Nelson MD Primary Care Provider [phone] Source Comments [facility],non-owned Affiliates and Associated Physician Practices is amultiple site organization consisting of ambulatory clinics and hospital sitesin [place], [place], [place] and [place]. This disclosure is being madepursuant to the Care Everywhere program and may not contain all information available regarding this patient. Last updated 18.[facility] [email or web address] Allergies Active Allergy Reactions Criticality Noted Date Comments Oxycodone Other Medium 03/19/2023 Pt with history of altered mental status and hallucinations with oxycodone Medications * Be aware that medications may not be up to date on this document. Alwaysverify current medications with the patient. Medication Sig Dispensed Refills Start Date End Date Status pitavastatin (LIVALO) 2 MG tablet Take 2 mg by mouth once daily. Active ezetimibe (ZETIA) 10 MG tablet Take 10 mg by mouth at bedtime. Active fenofibrate (TRICOR) 145 MG tablet Take by mouth at bedtime. Active multivitamin daily (THERAGRAN) tablet Take 1 Tab by mouth daily with food. Active tetrahydrozoline (VISINE) 0.05 % ophthalmic solution Instill 1 Drop into both eyes 4 times daily as needed. Active benzonatate (TESSALON) 100 MG capsule Take 1 Cap by mouth 3 times daily as needed for Cough. 30 Cap 0 06/14/2012 Active acetaminophen (TYLENOL) 325 MG tablet Take 2 Tabs by mouth every 4 hours as needed. Maximum allowable Acetaminophen amount = 4 Grams (4000 mg) / 24 hours. 06/14/2012 Active metoprolol succinate XL 24hr (TOPROL XL) 25 MG tablet Take 25 mg by mouth 2 times daily. 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 (FLUAD QUADRIVALENT; 65Y+) (AIIV4) 08/01/2022 INFLUENZA VACCINE, ADJUVANTE D, TRIV. (FLUAD TRIVALENT; 65Y+) (AIIV3) 07/09/2018 INFLUENZA VACCINE, HIGH-DOSE , QUADR. (FLUZONE HIGH-DOSE QUADRIVALENT; 65Y+), 0.7 ML (HD-IIV4) 07/11/2021,07/14/2020,07/22/2019,2015,08/20/2015,08/25/2013 INFLUENZA VACCINE, TRIV. (FL UZONE; FLULAVAL; FLUARIX; AFLURIA TRIVALENT; 6MO+), 0.5 ML (IIV3) 07/16/2017 MODERNA SARS-COV-2 COVID-19 VACCINE 0.25ML 10/11/2021 PNEUMOCOCCAL PPV VACCINE 07/14/2020,11/05/2019 Pneumococcal Pcv13 Conj 07/09/2018 TDAP, HISTORIC VACCINE 11/23/2015 ZOSTER VACCINE, LIVE 11/27/2012 Zoster Hzv Vacc Recombinant Inj Im 11/18/2021, Family History Medical History Relation Name Comments CAD (Coronary Artery Disease) Mother Relation Name Status Comments Father Mother Social History Tobacco Use Types Packs/Day Years Used Date Smoking Tobacco: Former Smokeless Tobacco: Never Alcohol Use Standard Drinks/Week Comments Yes 0 (1 standard drink = 0.6 oz pur e alcohol) AUDIT-C Answer Date Recorded Q1: How often do you have a drink containing alcohol? Never 03/14/2023 Q2: How many drinks containi ng alcohol do you have on a typical day when you are drinking? Patient does not drink 3 Q3: How often do you have si x or more drinks on one occasion? Never 03/14/2023 Overall Financial Resource Strain (CARDIA) Answe r Date Recorded How hard is it for you to pa y for the very basics like food, housing, medical care, and heating? Not hard at all 03/14/2023 [facility] - Occupational Stress Questionnaire Answer Date Recorded Do you feel stress - tense, restless, nervous, or anxious, or unable to sleep at night because your mind is troubled all the time - these days? Not at all 03/14/2023 Hunger Vital Sign Answer Date Recorded Within the past 12 months, y ou worried that your food would run out before you got the money to buy more. Never true 03/14/20 23 Within the past 12 months, t he food you bought just didn't last and you didn't have money to get more. Never true 03/14/2023 PRAPARE - Transportation Answer Date Re corded In the past 12 months, has l ack of transportation kept you from medical appointments or from getting medications? No 02/26 In the past 12 months, has l ack of transportation kept you from meetings, work, or from getting things needed for daily living? No 03/14/2023 Housing Stability Vital Sign Answer Odell e Recorded In the last 12 months, was t here a time when you were not able to pay the mortgage or rent on time? No 03/14/2023 In the last 12 months, how many places have you lived? 1 03/14/2023 In the last 12 months, was t here a time when you did not have a steady place to sleep or slept in a usp (including now)? No 03/14/2023 Sex and Gender Information Value Date Recorded Sex Assigned at Not on file Gender Identity Not on file Sexual Orientation Not on file Last Filed Vital Signs Vital Sign Reading Time Taken Comments Blood Pressure 131/66 04/03/2023 8:02 AM CDT Pulse 75 04/03/2023 8:02 AM CDT Temperature 36.3 C (97.4 F) 04/03/2023 8:02 AM CDT Respiratory Rate 16 04/03/2023 8:02 AM CDT Oxygen Saturation 96% 04/03/2023 8:02 AM CDT Inhaled Oxygen Concentration 21% 03/29/2023 4 :29 AM CDT Weight 89.8 kg (198 lb) 03/23/2023 12:20 PM CDT Height 177.8 cm (5' 10 ) 03/23/2023 12:20 PM CDT Body Mass Index 28.41 03/23/2023 12:20 PM CDT Plan of Treatment Health Maintenance Due Date Last Done Comments Respiratory Syncytial Virus (RSV) Vaccine Pt: or over 60 yrs (1 - 1-dose 75+ series) 2011 COVID-19 VACCINE ( season) 2024 08/01/2022, 10/11/2021, 01/07/2021, Additional history exists INFLUENZA VACCINE (#1) 2024 , 07/11/2021, 07/14/2020, Additional history exists DEPRESSION SCREENING 10/29/2024 MEDICARE AWV CALENDAR YEAR 2024 DTAP/TDAP/TD VACCINES (2 - Td or Tdap) 11/23/2025 11/23/2015 PNEUMOCOCCAL VACCINE 50+ Completed 020, 11/05/2019, 07/09/2018 ZOSTER VACCINE Completed 11/18/2021, 08/29, 11/27/2012 HEPATITIS B VACCINE Aged Out No longe r eligible based on patient's age to complete this topic HIB VACCINE Aged Out No longer eligi ble based on patient's age to complete this topic HPV VACCINE Aged Out No longer eligi ble based on patient's age to complete this topic MENINGOCOCCAL (Group B) VACCINE Aged Out No longer eligible based on patient's age to complete this topic MENINGOCOCCAL VACCINE Aged Out No carrol viri eligible based on patient's age to complete this topic Advance Directives Documents on File Type Date Recorded Patient Brand Mgr Expl anation Adv Directive/Living Will/POA 04/04/2023 2:26 PM Adv Directive/Living Will/POA 06/15/2012 2:33 PM * LIMITED RESUSCITATION-PRIOR AND AFTER ARREST (Latest Code Status on File) Date Activated Date Inactivated Comments 03/18/2023 7:49 PM 04/03/2023 11:53 AM Question Answer Comments Limited Resuscitation: No Chest Compress ionNo Intubation, No Invasive VentilationNo Cardioversion, No Defibrilation, No External or Internal PacemakerNo Cardioactive Drugs, No Vasopressors * DNR - IF PULSELESS NO CPR, NO SHOCK Date Activated Date Inactivated Comments 03/15/2023 6:54 PM 03/18/2023 7:49 PM Question Answer Comments : DO NOT discontinue a ny active orders without asking attending physician. * Full Code Date Activated Date Inactivated Comments 03/14/2023 8:30 PM 03/15/2023 6:54 PM * FULL RESUSCITATION Date Activated Date Inactivated Comments 06/10/2012 6:19 PM 06/14/2012 2:48 PM Care Teams Activated Sludge Attendant Relationship Specialty Start Date End Date Kev Nelson MD PCP - General 07/02/12 Adonis Estrada MD Orthopedic Surgery 03/14/12
--- OUTSIDE RECORDS SUMMARY | 2024-12-08 15:24 | XMS_ITS | Patient Health Record ---
Author Organization [facility] Address [address] [place], [place] [id number] Care Team Providers Care Button Broacher Name Role Phone SUNITHA GILLESPIE Unavailable [phone] Answer, Declined Unavailable Unavailable Reason For Referral No Information Medications Medication SIG (Take, Route, Frequency, Duration) Notes Start Date End Date Status predniSONE Active Isosorbide Mononitrate ER Active hydrALAZINE HCl Acti ve Aspirin 81 Active Ferrous Sulfate Acti ve Warfarin Sodium Acti ve Fenofibrate Active Metoprolol Succinate Active Vital Signs Height-cm 177.8 cm 04/10/2024 Weight-kg 83.91 kg 04/10/2024 Height 70 in 04/10/2024 Weight 185 lbs 04/10/2024 BMI 26.54 kg/m2 04/10/2024 Encounters Encounter Location Date Provider Diagnosis [facility] [address] [place], [place] [id number] 04/10/2024 SUNITHA GILLESPIE 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 If the condition should worsen they should call the office. Plan Of Treatment No Information Insurance Providers Payer Name Payer Address Payer Phone Subscriber Number Group Number Insured Name Patient Relationship to Insured Coverage Start Date Coverage End Date [facility] [address] [address] [place] [address] [id number] [id number] Adorno Self - patient is the insured
--- OUTSIDE RECORDS SUMMARY | 2024-12-08 15:24 | XMS_ITS | Continuity of Care Document ---
Author Organization [employer] [facility] [place] [address] [place] [address] Phone Care Team Providers Care Clinical Engineering Manager Name Role Phone Mel Sundar ENAMORADO Unavailable Unavailable Allergies, Adverse Reactions, Alerts Substance Reaction Status Criticality No Known Allergies Active No Inform ation Medications Medication Instructions Dosage Effective Dates (start - stop) Status Comments pravastatin 40 mg tablet take 1 tablet by oral route every day 40 MG - Active BACTRIM (unknown strength) Not Available - Active warfarin 5 mg tablet take 1 tablet by oral route every day 5 MG - Active prednisone 5 mg tablet - Active Levothyroxine 200 mcg Tab take 1 tablet (200MCG) by ORAL route every day 200 MCG - Active Metoprolol Tartrate 100 mg Tab take 1 tablet (100MG) by ORAL route 2 times every day with meals 100 MG - Active Aspirin Low Dose 81 mg Tab, Delayed Release take 1 tablet (81MG) by ORAL route every day 81 MG - Active Procedures Procedure Date Refraction SCODI, Retina Office/outpatient Visit, Est No Charge Refraction No Charge Glasses Check Refraction Eye Exam & Treatment [facility] Frames Purchases BF Plastic Sphcyl [place] To +/-4d .12-2d Progressive Lens Per Lens Eye Exam & Treatment Refraction Eye Exam, New Patient Refraction Vision [facility] Frames Purchases BF Plastic Sphcyl [place] To +/-4d .12-2d Progressive Lens Per Lens Advance Directives Directive Yes / No Effective Date File Name No Information Encounters Encounter Description Practice Location Reason(s) For Visit Diagnoses Date Provider Providers Copied on Encounter Office/outpa tient Visit, Est [facility], [address] [place] [address] [address], [place], [place], [id number], tel:[phone] SEC Elisa Mendoza Decreased vision (chief complaint) Macular cyst, hole, or pseudohole, right eye 6 Mel Kwok. [address] [place] [address], [id number] , . tel: [phone] Referring Provider: Sundar Mcrae, [address] [place] [address], [address] . tel:[phone] [facility], [address], [place], [place], [id number], [place] tel:[phone] SEC Elisa Mendoza Rx Check (chief complaint) Presbyopia 5 Mel Kwok. [address] [place] [address], [id number] , [place]. tel: [phone] Referring Provider: Sundar Mcrae, [address], [address] . tel:[phone] [id number] [facility], [address] [place] [address] [address], [place], [place], [id number], [place] tel:[phone] SEC Elisa Mendoza complete exam (chief complaint) PresbyopiaNuclear sclerotic cataract, bilateral 5 Mel Kwok. [address], [id number] , . tel: [phone] Referring Provider: Sundar Mcrae, [address] [address], [place], [address] . tel:[phone] [facility], [address], [place], [place], [id number], [place] tel:[phone] SEC Elisa Mendoza No Information 5 [employer] [address] [facility], [address] [place] [address], [id number] , [place]. tel: [phone] Referring Provider: Tomasz Simons, [address], [place], [address] . tel:[phone] sulting Provider: Tomasz Simons [address], [place], [address] . tel:[phone] [facility], [address], [place], [place], [id number], [place] tel:[phone] SEC Elisa Mendoza No Information 5 Mel Kwok. [address] [facility], [address] [place] [address], [id number] , [place]. tel:[phone] [facility], [address], [place], [place], [id number], [place] tel:[phone] SEC Elisa Mendoza Complete Exam (chief complaint) HYPERMETROPIASENIL E NUCLEAR CATARACT 4 Mel Kwok. [address] [facility], [address], [place], [id number] , [place]. tel:[phone] Referring Provider: Sundar Mcrae, [address] [facility] [address] [facility], [place], [address] . tel:[phone] [facility], [address], [place], [place], [id number], [place] tel:[phone] SEC Elisa Mendoza blurry vision (chief complaint) HYPERMETROPIASENIL E NUCLEAR CATARACT 3 Mel Kwok. [address] [facility], [address], [id number] , . tel:[phone] [facility], [address] [place], [place] [address] [address], [place], [place], [id number], tel:[phone] SEC Elisa Mendoza No Information 3 [employer] [address], [id number] , . tel:[phone] Referring Provider: Sundar Mcrae, [address] [place] [address], [address] . [phone] sulting Provider: Tomasz Simons, [address] [facility], [place], [address] . tel:[phone] [facility], [address] [place] [address] [address], [place], [place], [id number], tel:[phone] SEC Elisa Mendoza No Information 3 Mel Kwok. [address] [place] [address], [id number] , . tel: [phone] Family History Family Member Type Diagnosis Age At Onset No Information Payers Payer name Insurance type Covered green party ID Nazanin martin(s) [place] [id number] [address] [id number] Social History Type Description Quantity Date Captured Comments Alcohol Use Details wine 1 drink daily Caffeine Use Details and coffee Tobacco Use Status Never smoked tobacco 2015 Smoking Status Never smoker Non-Smoking Tobacco Use Details : No Details Available : No Details Available Sex Male Chief Complaint And Reason For Visit From encounter dated '11/08/2015 11:15'. Decreased vision (chief complaint). Description: The 79 year old male presents for decrease in VA OD since 11/03/15. Pt states he felt a pin prick in OD and started checking VA . Has a very blurry spotin the center of OD. Cannot see noses on peoples faces. Pt states he has not had the pain since that one instance but the blurred spot is not getting any better. Pt states GLS were fine when he firtspicked them up. Reason For Referral Reason For Referral No Information History Of Present Illness Encounter Date Complaint History Of Prese nt Illness Decreased vision The 79 year old male presents for decrease in VA OD since 11/03/15. Pt states he felt a pin prick in OD and started checking VA . Has a very blurry spot in the center of OD. Cannot see noses on peoples faces. Pt states he has not had the pain since that one instance but the blurred spot is not getting any better. Pt states GLS were fine when he firts picked them up. Rx Check complete exam The 79 year old male presents for complete exam. Hx of cataracts OU. Patient has no ocular complaints at this time. Patient denies use of ocular drops. Complete Exam The 78 year old male presents for a Complete Exam. Patient has HX Hyperopia OU and Cats OU. Patient states he is doing well with no vision complaints. Patient uses Visine for dryness on occasion. Functional Status Date Functional Assessmen t No Information Instructions Date Instruction Additional Infor hanny Impression/Plan - RE xavi to [place] for retinal consustation and treatment. Related to Macular cyst, hole, or pseudohole, right eye Impression/Plan - Ne w glasses Rx was given today. Related to Presbyopia Impression/Plan - Di scussed cataracts and cataract surgery.Not significantly affecting vision.Knows to return if vision changes. Related to Nuclear sclerotic cataract, bilateral - New glasses Rx was given today. Discussed cataracts and cataract surgery. Patient elects not to treat at this time. Will continue to monitor for changes and knows to return if vision becomes worse. Related to See list of assessments above SENILE NUCLEAR CATAR ACT - Surgery not indicated now. Related to SENILE NUCLEAR CATARACT Cataract, Nuclear Sc lerosis, OU - Discussed cataracts with patient. No treatment is required at this time. Will continue monitor. Related to Cataract, Nuclear Sclerosis Hyperopia, OU - New glasses Rx was given today. 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 Recent onsect macular visible on OCT Patient Care Teams Name Effective Dates (start - stop) Status Members No Information
--- OUTSIDE RECORDS SUMMARY | 2024-12-08 15:24 | XMS_ITS | Patient Health Summary ---
Author Organization [facility] Address [address] [place] [address] Care Team Providers Care Dining Room Captain Name Role Phone Adonis Estrada MD Unavailable [phone] Kev Nelson MD Primary Care Provider [phone] Note from [facility],non-owned Affiliates and Associated Physician Practices is amultiple site organization consisting of ambulatory clinics and hospital sitesin [place], [place], [place] and [place]. This disclosure is being madepursuant to the Care Everywhere program and may not contain all information available regarding this patient. Last updated 18.[facility] Allergies * Oxycodone(Other) -Medium Criticality Medications * Be aware that medications may not be up to date on this document. Alwaysverify current medications with the patient. * pitavastatin (LIVALO) 2 MG tablet Take 2 mg by mouth once daily. * ezetimibe (ZETIA) 10 MG tablet Take 10 mg by mouth at bedtime. * fenofibrate (TRICOR) 145 MG tablet Take by mouth at bedtime. * multivitamin daily (THERAGRAN) tablet Take 1 Tab by mouth daily with food. * tetrahydrozoline (VISINE) 0.05 % ophthalmic solution Instill 1 Drop into both eyes 4 times daily as needed. * benzonatate (TESSALON) 100 MG capsule(Started 06/14/2012) Take 1 Cap by mouth 3 times daily as needed for Cough. * acetaminophen (TYLENOL) 325 MG tablet(Started 06/14/2012) Take 2 Tabs by mouth every 4 hours as needed. Maximum allowable Acetaminophen amount = 4 Grams (4000 mg) / 24 hours. * metoprolol succinate XL 24hr (TOPROL XL) 25 MG tablet Take 25 mg by mouth 2 times daily. 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 (FLUAD QUADRIVALENT; 65Y+) (AIIV4)(Given 08/01/2022) * INFLUENZA VACCINE, ADJUVANTED, TRIV. (FLUAD TRIVALENT; 65Y+) (AIIV3)(Given 07/09/2018) * INFLUENZA VACCINE, HIGH-DOSE, QUADR. (FLUZONE HIGH-DOSE QUADRIVALENT; 65Y+), 0.7 ML (HD-IIV4)(Given 07/11/2021, 07/14/2020, 07/22/2019, 07/26/2016, 08/20/2015, 08/25/2013) * INFLUENZA VACCINE, TRIV. (FLUZONE; FLULAVAL; FLUARIX; AFLURIA TRIVALENT; 6MO+), 0.5 ML (IIV3)(Given 07/16/2017) * MODERNA SARS-COV-2 COVID-19 VACCINE 0.25ML(Given 10/11/2021) * PNEUMOCOCCAL PPV VACCINE(Given 07/14/2020, 11/05/2019) * Pneumococcal Pcv13 Conj(Given 07/09/2018) * TDAP, HISTORIC VACCINE(Given 11/23/2015) * ZOSTER VACCINE, LIVE(Given 11/27/2012) * Zoster Hzv Vacc Recombinant Inj Im(Given 11/18/2021, 09/13/2021) Social History Tobacco Use Types Packs/Day Years [...] you are drinking? Patient does not drink 05/17/202 3 Q3: How often do you have si x or more drinks on one occasion? Never 03/14/2023 Overall Financial Resource Strain (CARDIA) Answe r Date Recorded How hard is it for you to pa y for the very basics like food, housing, medical care, and heating? Not hard at all 03/14/2023 [facility] of Occupat ional Health - Occupational Stress [...] place to sleep or slept in a retirement (including now)? No 03/14/2023 Sex and Gender [...] Mass Index 28.41 03/23/2023 12:20 PM CDT Procedures * CARDIAC EKG ORDER(Performed 04/04/2023) * PT-INR [facility](Performed 04/03/2023) * XR CHEST 1VW PORTABLE(Performed 04/02/2023) Performed for Hypoxia, Closed fracture of multiple ribs of left side, initial encounter * PT-INR [facility](Performed 04/02/2023) * PT-INR [facility](Performed 04/01/2023) * PT-INR [facility](Performed 03/31/2023) * PT-INR [facility](Performed 03/30/2023) * PT-INR [facility](Performed 03/29/2023) * PHOSPHORUS BLOOD(Performed 03/29/2023) * MAGNESIUM BLOOD(Performed 03/29/2023) * CBC W/O DIFFERENTIAL(Performed 03/29/2023) * BASIC METABOLIC PANEL (CALCIUM TOTAL)(Performed 03/29/2023) * PT-INR [facility](Performed 03/28/2023) * PT-INR [facility](Performed 03/27/2023) * GLUCOSE - POINT OF CARE(Performed 03/27/2023) * CBC W/O DIFFERENTIAL(Performed 03/26/2023) * PHOSPHORUS BLOOD(Performed 03/26/2023) * MAGNESIUM BLOOD(Performed 03/26/2023) * BASIC METABOLIC PANEL (CALCIUM TOTAL)(Performed 03/26/2023) * PT-INR [facility](Performed 03/26/2023) * CBC W/O DIFFERENTIAL(Performed 03/25/2023) * PHOSPHORUS BLOOD(Performed 03/25/2023) * MAGNESIUM BLOOD(Performed 03/25/2023) * BASIC METABOLIC PANEL (CALCIUM TOTAL)(Performed 03/25/2023) * PT-INR [facility](Performed 03/25/2023) * PHOSPHORUS BLOOD(Performed 03/24/2023) * MAGNESIUM BLOOD(Performed 03/24/2023) * BASIC METABOLIC PANEL (CALCIUM TOTAL)(Performed 03/24/2023) * PT-INR [facility](Performed 03/24/2023) * XR CHEST 1VW PORTABLE(Performed 03/24/2023) Performed for Fall, initial encounter * ECHO COMPLETE W CONTRAST(Performed 03/23/2023) Performed for Hypoxia * BLOOD GASES ART + COOX PANEL(Performed 03/23/2023) * B-TYPE NATRIURETIC PEPTIDE(Performed 03/23/2023) * BASIC METABOLIC PANEL (CALCIUM TOTAL)(Performed 03/23/2023) * XR CHEST 1VW PORTABLE(Performed 03/23/2023) Performed for Closed fracture of multiple ribs of left side, initial encounter * PHOSPHORUS BLOOD(Performed 03/23/2023) * MAGNESIUM BLOOD(Performed 03/23/2023) * PT-INR [facility](Performed 03/23/2023) * BASIC METABOLIC PANEL (CALCIUM TOTAL)(Performed 03/22/2023) * CBC W/O DIFFERENTIAL(Performed 03/22/2023) * URINALYSIS REFLEX MICROSCOPIC REFLEX CULTURE(Performed 03/22/2023) * B-TYPE NATRIURETIC PEPTIDE(Performed 03/22/2023) * EKG 12-LEAD(Performed 03/22/2023) Performed for Fall, initial encounter, Hypoxia * XR CHEST 1VW PORTABLE(Performed 03/22/2023) Performed for Hypoxia * BLOOD GASES ART + COOX PANEL(Performed 03/22/2023) * PT-INR [facility](Performed 03/22/2023) * XR CHEST 1VW PORTABLE(Performed 03/21/2023) Performed for Closed fracture of multiple ribs, unspecified laterality, initial encounter * TSH REFLEX FREE T4(Performed 03/21/2023) * PHOSPHORUS BLOOD(Performed 03/21/2023) * MAGNESIUM BLOOD(Performed 03/21/2023) * BASIC METABOLIC PANEL (CALCIUM TOTAL)(Performed 03/21/2023) * CBC W/O DIFFERENTIAL(Performed 03/21/2023) * PTT [facility](Performed 03/21/2023) Performed for Fall, initial encounter * PT-INR [facility](Performed 03/21/2023) * PTT [facility](Performed 03/20/2023) * PTT [facility](Performed 03/20/2023) * PT-INR [facility](Performed 03/20/2023) * PTT [facility](Performed 03/20/2023) * PTT [facility](Performed 03/19/2023) * CARDIAC EKG ORDER(Performed 03/19/2023) * PTT [facility](Performed 03/19/2023) * PHOSPHORUS BLOOD(Performed 03/19/2023) * MAGNESIUM BLOOD(Performed 03/19/2023) * BASIC METABOLIC PANEL (CALCIUM TOTAL)(Performed 03/19/2023) * CBC W/O DIFFERENTIAL(Performed 03/19/2023) * PTT [facility](Performed 03/19/2023) Performed for Fall, initial encounter * PT-INR [facility](Performed 03/19/2023) * PHOSPHORUS BLOOD(Performed 03/18/2023) * MAGNESIUM BLOOD(Performed 03/18/2023) * LACTIC ACID BLOOD(Performed 03/18/2023) * PTT [facility](Performed 03/18/2023) * PT-INR [facility](Performed 03/18/2023) * BLOOD GASES ART + COOX PANEL(Performed 03/18/2023) * BASIC METABOLIC PANEL (CALCIUM TOTAL)(Performed 03/18/2023) * CBC W AUTO DIFFERENTIAL(Performed 03/18/2023) * CT ANGIO CHEST PULM EMBOLISM(Performed 03/18/2023) Performed for Fall, initial encounter * CT HEAD WO CONTRAST(Performed 03/18/2023) Performed for Fall, initial encounter * XR CHEST 1VW(Performed 03/18/2023) Performed for Closed fracture of multiple ribs, unspecified laterality, initial encounter * XR CHEST 1VW PORTABLE(Performed 03/18/2023) Performed for Closed fracture of multiple ribs, unspecified laterality, initial encounter * URINALYSIS REFLEX TO MICROSCOPIC NO CULTURE(Performed 03/18/2023) * PTT [facility](Performed 03/18/2023) Performed for Fall, initial encounter * PT-INR [facility](Performed 03/18/2023) * PREPARE RBC LEUKOREDUCED UNIT(Performed 03/18/2023) * PT-INR [facility](Performed 03/17/2023) * PTT [facility](Performed 03/17/2023) * PTT [facility](Performed 03/17/2023) * CT CHEST WO CONTRAST(Performed 03/17/2023) Performed for Fall, initial encounter * XR CHEST 1VW PORTABLE(Performed 03/17/2023) Performed for Fall, initial encounter * PTT [facility](Performed 03/16/2023) * CARDIAC EKG ORDER(Performed 03/16/2023) * PT-INR [facility](Performed 03/16/2023) * PTT [facility](Performed 03/16/2023) * XR CHEST 1VW PORTABLE(Performed 03/16/2023) Performed for Fall, initial encounter * PHOSPHORUS BLOOD(Performed 03/16/2023) * MAGNESIUM BLOOD(Performed 03/16/2023) * CBC W AUTO DIFFERENTIAL(Performed 03/16/2023) * CALCIUM IONIZED WHOLE BLOOD(Performed 03/16/2023) * BASIC METABOLIC PANEL (CALCIUM TOTAL)(Performed 03/16/2023) * PT-INR [facility](Performed 03/16/2023) * PTT [facility](Performed 03/16/2023) * PTT [facility](Performed 03/15/2023) * PT-INR [facility](Performed 03/15/2023) * PTT [facility](Performed 03/15/2023) * PTT [facility](Performed 03/15/2023) * EKG 12-LEAD(Performed 03/15/2023) Performed for Fall, initial encounter * XR CHEST 1VW PORTABLE(Performed 03/15/2023) Performed for Closed fracture of multiple ribs, unspecified laterality, initial encounter * URINE DRUG SCREEN IMMUNOASSAY(Performed 03/15/2023) * URINALYSIS W/MICROSCOPIC NO CULTURE(Performed 03/15/2023) * PT-INR [facility](Performed 03/15/2023) * BLOOD TYPE VERIFICATION(Performed 03/15/2023) * PHOSPHORUS BLOOD(Performed 03/15/2023) * MAGNESIUM BLOOD(Performed 03/15/2023) * CBC W AUTO DIFFERENTIAL(Performed 03/15/2023) * CALCIUM IONIZED WHOLE BLOOD(Performed 03/15/2023) * BASIC METABOLIC PANEL (CALCIUM TOTAL)(Performed 03/15/2023) * PTT [facility](Performed 03/14/2023) * PT-INR [facility](Performed 03/14/2023) * EKG 12-LEAD(Performed 03/14/2023) Performed for Fall, initial encounter * ALCOHOL ETHYL BLOOD(Performed 03/14/2023) * CT CERVICAL SPINE WO CONTRAST(Performed 03/14/2023) Performed for Fall, initial encounter, Closed fracture of multiple ribs, unspecified laterality, initial encounter * CT HEAD WO CONTRAST(Performed 03/14/2023) Performed for Fall, initial encounter, Closed fracture of multiple ribs, unspecified laterality, initial encounter * CT LUMBAR SPINE WO CONTRAST(Performed 03/14/2023) Performed for Fall, initial encounter * CT THORACIC SPINE WO CONTRAST(Performed 03/14/2023) Performed for Fall, initial encounter * CT CHEST ABDOMEN PELVIS WO CONT(Performed 03/14/2023) Performed for Fall, initial encounter * XR CHEST 1VW PORTABLE(Performed 03/14/2023) Performed for Fall, initial encounter * XR PELVIS 1 OR 2VW(Performed 03/14/2023) Performed for Fall, initial encounter * ANTIBODY IDENTIFICATION(Performed 03/14/2023) * ELUTION(Performed 03/14/2023) * TENZIN DIRECT C3(Performed 03/14/2023) * TENZIN DIRECT IGG(Performed 03/14/2023) * TENZIN DIRECT(Performed 03/14/2023) * TYPE + SCREEN PANEL(Performed 03/14/2023) * PTT [facility](Performed 03/14/2023) * PT-INR [facility](Performed 03/14/2023) * CBC W AUTO DIFFERENTIAL(Performed 03/14/2023) * COMPREHENSIVE METABOLIC PANEL(Performed 03/14/2023) * XR KNEE RIGHT 3VW(Performed 06/10/2013) Performed for Knee pain * XR KNEE RIGHT 3VW(Performed 07/23/2012) Performed for Knee pain * CT HEAD WO CONTRAST(Performed 06/14/2012) Performed for Mental status change * PT-INR(Performed 06/14/2012) * BASIC METABOLIC PANEL (CALCIUM TOTAL)(Performed 06/13/2012) * PT-INR(Performed 06/13/2012) * PT-INR(Performed 06/12/2012) * HGB HCT PANEL(Performed 06/12/2012) * URINALYSIS REFLEX MICROSCOPIC REFLEX CULTURE(Performed 06/11/2012) * URINALYSIS REFLEX MICROSCOPIC REFLEX CULTURE(Performed 06/11/2012) * PT-INR(Performed 06/11/2012) * HGB HCT PANEL(Performed 06/11/2012) * PT-INR(Performed 06/10/2012) * CULTURE MSSA/MRSA(Performed 05/15/2012) Performed for Other specified pre-operative examination * CBC W AUTO DIFFERENTIAL(Performed 05/15/2012) Performed for Other specified pre-operative examination * COMPREHENSIVE METABOLIC PANEL(Performed 05/15/2012) Performed for Other specified pre-operative examination * EKG 12-LEAD(Performed 05/15/2012) Performed for Other specified pre-operative examination Results * CARDIAC EKG ORDER (04/04/2023 3:50 PM CDT) Only the most recent of3 resultswithin the time period is included. Narrative 04/04/2023 3:50 PM CDT Ordered by an unspecified provider. Scanned Document CARDIAC SERVICES ORD ERABLES * (ABNORMAL) PT-INR [facility] (04/03/2023 2:36 AM CDT) Only the most recent of25 resultswithin the time period is included. PT 32.8(H) 12.1 - 14.8 Seconds 04/03/2023 3:18 AM CDT [facility] INR 3.2 See Comment 04/03/2023 3:18 AM CDT [facility] Comment:The suggested therap eutic range for standard coumadin (warfarin) therapy is an INR of 2.0-3.0. For high-risk patients (Mechanical Mitral Valve Prosthesis, etc.), the suggested prophylactic therapeutic range is an INR of 2.5-3.5. Blood BLOOD SPECIMEN / Unknown Lab Venipuncture / Unknown 04/03/2023 2:36 AM CDT 04/03/2023 2:55 AM CDT Yash Leon DO LAB - COAGULATION OR DERABLES Performing Organization Address City/State/[facility] Co de Phone Number [facility] [address] [place] [address], [facility] [phone] * XR CHEST 1VW PORTABLE (04/02/2023 9:09 AM CDT) Only the most recent of10 resultswithin the time period is included. Anatomical Region Laterality Modality Chest Radiographic Mandy ging 04/02/2023 10:5 8 AM CDT Narrative 04/03/2023 12:06 AM CDT PROCEDURE: XR CHEST 1VW PORTABLE, DATE/TIME OF EXAM: 04/02/2023 9:09 AM, LOCATION [facility] INDICATION: R09.02: Hypoxia S22.42XA: Closed fracture of multiple ribs of left side, initial encounter ADDITIONAL CLINICAL INFORMATION: Ordering Provider Reason For Exam: chf exacerbation COMPARISON: Chest x-ray from 03/24/2023. FINDINGS/IMPRESSION: Median sternotomy wires are well aligned. Interval increase in left lower lobe opacities, likely due to left-sided pleural effusion/empyema and consolidation. Mild pulmonary vascular congestion. No right pleural effusion. There is no pneumothorax. The cardiomediastinal silhouette is stable. > Dictated by Vladimir Chou MD (residential care officer). Stephen Carroll MD have personally reviewed and interpreted this examination/study. > Interpreting Provider: Stephen Rodriguez MD on 04/03/2023 12:06 AM Procedure Note Stephen Rodriguez MD - 04/03/2023 PROCEDURE: XR CHEST 1VW PORTABLE, DATE/TIME OF EXAM: 04/02/2023 9:09 AM, LOCATION [facility] INDICATION: R09.02: Hypoxia S22.42XA: Closed fracture of multiple ribs of left side, initialencounter ADDITIONAL CLINICAL INFORMATION: Ordering Provider Reason For Exam: chf exacerbation COMPARISON: Chest x-ray from 03/24/2023. FINDINGS/IMPRESSION: Median sternotomy wires are well aligned. Interval increase in left lower lobe opacities, likely due to left-sided pleural effusion/empyema and consolidation. Mild pulmonary vascular congestion. No right pleural effusion. There is no pneumothorax. The cardiomediastinal silhouette is stable. > Dictated by Vladimir Chou MD (residential care officer). Stephen Carroll MD have personally reviewed and interpreted this examination/study. > Interpreting Provider: Stephen Rodriguez MD on 04/03/2023 12:06 AM Shayla Robles DRY HOUSE ATTENDANT-CABLE DISPATCHER DIAGNOSTIC IMAGIN G ORDERABLES * (ABNORMAL) CBC W/O DIFFERENTIAL (03/29/2023 2:45 AM CDT) Only the most recent of6 resultswithin the time period is included. WBC 5.9 3.5 - 10.5 10 3/uL 03/29/2023 4:50 AM [facility] RBC 3.16(L) 4.30 - 5.70 10 6/uL 03/29/2023 4:50 AM [facility] Hemoglobin 9.2(L) 12.0 - 17.6 g/dL 03/29/2023 4:50 AM [facility] Hematocrit 27.9(L) 35.2 - 51.7 % 03/29/2023 4:50 AM [facility] MCV 88.3 80.7 - 98.3 fL 03/29/2023 4:50 AM [facility] MCH 29.1 26.7 - 34.0 pg 03/29/2023 4:50 AM [facility] MCHC 33.0 30.8 - 35.9 g/dL 03/29/2023 4:50 AM [facility] RDW-SD 44.0 36.0 - 50.0 fL 03/29/2023 4:50 AM [facility] RDW-CV 13.6 11.2 - 14.8 % 03/29/2023 4:50 AM [facility] Platelet Count 467(H) 150 - 400 10 3/uL 03/29/2023 4:50 AM [facility] MPV 9.9 9.4 - 12.9 fL 03/29/2023 4:50 AM [facility] nRBC Absolute 0.00 0 10 3/uL 03/29/2023 4:50 AM [facility] nRBC Auto 0.0 0 /100 WBC 03/29/2023 4:50 AM [facility] Blood BLOOD SPECIMEN / Unknown Lab Venipuncture / Unknown 03/29/2023 2:45 AM CDT 03/29/2023 4:19 AM CDT Shayla Robles DRY HOUSE ATTENDANT-CABLE DISPATCHER LAB - HEMATOLOGY ORDERABLES [facility] [address] [place] [address], [facility] [phone] * (ABNORMAL) BASIC METABOLIC PANEL (CALCIUM TOTAL) (03/29/2023 2:45 AM CDT) Only the most recent of12 resultswithin the time period is included. BUN 47(H) 7 - 26 mg/dL 03/29/2023 5:04 AM [facility] Creatinine 1.78(H) 0.71 - 1.16 mg/dL 03/29/2023 5:04 AM [facility] Sodium 135(L) 136 - 145 mmol/L 03/29/2023 5:04 AM [facility] Potassium 4.5 3.5 - 4.5 mmol/L 03/29/2023 5:04 AM [facility] Chloride 102 98 - 107 mmol/L 03/29/2023 5:04 AM [facility] CO2 21(L) 22 - 29 mmol/L 03/29/2023 5:04 AM [facility] Glucose 103 70 - 115 mg/dL 03/29/2023 5:04 AM [facility] Calcium 8.8 8.4 - 10.2 mg/dL 03/29/2023 5:04 AM [facility] Anion Gap 17 8 - 18 03/29/2023 5:04 AM [facility] BUN/Creatinine Ratio 26(H) 7 - 23 03/29/2023 5:04 AM [facility] Osmolality Calculated 293 270 - 300 mOsm/kg 03/29/2023 5:04 AM [facility] eGFR by CKD-EPI 37(L) >=90 mL/min/1.7 3 m2 03/29/2023 5:04 AM [facility] Blood BLOOD SPECIMEN / Unknown Lab Venipuncture / Unknown 03/29/2023 2:45 AM CDT 03/29/2023 4:20 AM CDT Shayla Robles DRY HOUSE ATTENDANT-CABLE DISPATCHER LAB - CHEMISTRY O RDERABLES [facility] [address] [place] [address], [facility] [phone] * PHOSPHORUS BLOOD (03/29/2023 2:45 AM CDT) Only the most recent of10 resultswithin the time period is included. Phosphorus 3.1 2.8 - 5.1 mg/dL 03/29/2023 5:04 AM CDT [facility] Blood BLOOD SPECIMEN / Unknown Lab Venipuncture / Unknown 03/29/2023 2:45 AM CDT 03/29/2023 4:20 AM CDT Shayla Robles APRN-CABLE DISPATCHER LAB - CHEMISTRY O RDERABLES [address] [address], [place] [phone] * MAGNESIUM BLOOD (03/29/2023 2:45 AM CDT) Only the most recent of10 resultswithin the time period is included. Magnesium 2.0 1.6 - 2.6 mg/dL 03/29/2023 5:04 AM CDT [facility] Blood BLOOD SPECIMEN / Unknown Lab Venipuncture / Unknown 03/29/2023 2:45 AM CDT 03/29/2023 4:20 AM CDT Shayla Robles APRN-CABLE DISPATCHER LAB - CHEMISTRY O RDERABLES Performing Organization Address City/[facility]/ZIP Co de Phone Number [address] [address], [place] [phone] * GLUCOSE - POINT OF CARE (03/27/2023 7:43 AM CDT) Glucose WB/POC 99 70 - 115 mg/dL 03/27/2023 12:17 PM CDT [facility] Specimen Type Cap Fingerstick 2022 12:17 PM CDT [facility] Blood BLOOD SPECIMEN / Unknown 03/27/2023 7:43 AM CDT 03/27/2023 12:17 PM CDT Yash Leon DO LAB - POINT OF CARE ORDERABLES [facility] [address] [place] [address], [facility] [phone] * ECHO COMPLETE W CONTRAST (03/23/2023 3:33 PM CDT) BSA 2.9534388 [id number] m2 SSM CV FUJI PACS LV biplane EF 29 % SSM CV FUJI PACS LV A2C EF 27 % SSM CV FUJ I PACS LV A4C EF 24 % SSM CV FUJ I PACS LVOT stroke vol 47.65 cm3 SSM CV FUJI PACS LV stroke vol 2D teich 43.494 ml SSM CV FUJI PACS LV stroke vol index A4C MOD 39.847 ml SSM CV FUJI PACS LVIDd 5.46 3.5 - 6.0 cm SSM CV FUJI PACS LVIDs 4.68 2.1 - 4.0 cm SSM CV FUJI PACS IVSd 2D 0.943 cm SSM CV FUJ I PACS IVSs 1.14 cm SSM CV FUJ I PACS LVPWd 1.03 cm SSM CV FUJ I PACS Fractional Shortening 2D 14 28 - 44 % SSM CV FUJI PACS LV ESV BP 139.384 mL SSM CV FUJ I PACS LV ESV index BP 65.5 mL/m2 SSM CV FUJI PACS LV ESV A2C 127.298 mL SSM CV FU JI PACS LV EDV BP 197.372 mL SSM CV FUJ I PACS LV ESV A4C 152.725 mL SSM CV FU JI PACS LV EDV index BP 92.8 mL/m2 SSM CV FUJI PACS LV EDV A2C 209.456 mL SSM CV FU JI PACS LV EDV A4C 167.145 mL SSM CV FU JI PACS LVOT diam 2.0 cm SSM CV FUJ I PACS LVOT area 3.14 cm2 SSM CV FUJ I PACS LV RWT 0.377 SSM CV FUJ I PACS LV Sellers A2C 10.05 cm SSM CV F UJI PACS LV Sellers A4C 8.929 cm SSM CV F UJI PACS MV E pk rain 135.57 cm/s SSM CV F UJI PACS MV avg E/e' ratio 24.25 SS M CV FUJI PACS LV IVRT 131 ms SSM CV FUJ I PACS MV E' lateral rain 7.305 cm/s SS M CV FUJI PACS MV DT 160 ms SSM CV FUJ I PACS MV E' septal rain 4.527 cm/s SSM CV FUJI PACS MV E/e' septal 29.946 SSM C V FUJI PACS MV E/e' lateral 18.559 SSM CV FUJI PACS P vein A rain 30.1 cm/s SSM CV FUJI PACS P vein A duration 126 ms SS M CV FUJI PACS LVOT pk rain 0.8920708 [id number] m/s SSM CV FUJI PACS LVOT mn rain 0.6018 m/s SSM CV F UJI PACS LVOT mn grad 1.6 mmHg SSM CV FUJI PACS LVOT Cardiac Output 3.949 l/min SSM CV FUJI PACS LA size 4.439 cm SSM CV [facility] I PACS RVIDd 2.7 cm SSM CV [facility] I PACS RVOT VTI 16.135 cm SSM CV [facility] I PACS TAPSE 2.27 cm SSM CV [facility] I PACS RA area 16.97 cm2 SSM CV [facility] I PACS AV mn grad 6 mmHg SSM CV FU JI PACS AV pk grad 11 mmHg SSM CV FU JI PACS AV mn rain 1.17 m/s SSM CV [facility] I PACS AV pk rain 1.66 m/s SSM CV [facility] I PACS AV VTI 26.429 cm SSM CV [facility] I PACS LVOT pk grad 2.552 mmHg SSM CV [facility] PACS LVOT VTI 15.176 cm SSM CV [facility] I PACS AV area planimetry 1.80 cm2 SSM CV [facility] PACS AV area index 0.8 cm2/m2 SSM CV [facility] PACS AV area cont VTI 1.7 cm2 SSM CV [facility] PACS AV area pk rain 1.6 cm2 SSM C V [facility] PACS AV Doppler rain index pk rain 0.52 SSM CV [facility] PACS MV mn grad 4 mmHg SSM CV [facility] PACS MV pk grad 7 mmHg SSM CV [facility] PACS MV mn rain 0.96 m/s SSM CV [facility] I PACS MV pk rain 131.845 cm/s SSM CV [facility] I PACS MV PHT 46 ms SSM CV [facility] I PACS MV area PHT 4.78 cm2 SSM CV F [facility] PACS MV area cont eq 2.04 cm2 SSM CV [facility] PACS MV VTI 23.361 cm SSM CV [facility] I PACS TR pk rain 208.2 cm/s SSM CV [facility] I PACS TR pk grad 17 mmHg SSM CV [facility] PACS NC pk rain 136.91 cm/s SSM CV [facility] I PACS NC pk grad 6 mmHg SSM CV [facility] PACS PV mn grad 2 mmHg SSM CV [facility] PACS PV pk rain 112.966 cm/s SSM CV [facility] I PACS PV pk grad 5 mmHg SSM CV [facility] PACS PV VTI 19.738 cm SSM CV [facility] I PACS PV mn rain 70.559 cm/s SSM CV [facility] I PACS RVOT pk rain 0.82 m/s SSM CV F [facility] PACS Ascending aorta 4.10 cm SSM CV [facility] PACS IVC size 1.6 cm SSM CV [facility] I PACS LV mass index 100.0 g/m2 SSM CV [facility] PACS AV rain ratio 0.52 SSM CV [facility] PACS LA ESV A4C MOD Index 19 ml/m2 SSM CV [facility] PACS LA ESV A2C MOD Index 21 ml/m2 SSM CV [facility] PACS LA vol BP A-L 48.823 SSM CV [facility] PACS TV S' rain 10.868 SSM CV [facility] I PACS [id number] 8.612 cm SSM CV [facility] I PACS GYRDH7TE 8.625 cm SSM CV [facility] I PACS Dimensionless Index 0.574 SSM CV [facility] PACS LV stroke vol BP 57.988 mL SSM CV [facility] PACS LVIDs index 2.20 cm/m2 SSM CV F [facility]I PACS LV LVIDd index 2.57 cm/m2 SSM C V [facility] PACS Sinus of Valsalva 3.05 cm SS M CV [facility] PACS RA vol index 21 mL/m2 SSM CV [facility] PACS LA AREA (4C) 15.535 SSM CV [facility] PACS Est RA pressure 3.0 mmHg SSM CV [facility] PACS Anatomical Region Laterality Modality Ultrasound Narrative 03/23/2023 4:23 PM CDT The study is very technially difficult Left Ventricle: Left ventricle size is normal. Normal wall thickness. Severely reduced systolic function. Regional wall motion abnormalities present. Diastolic function is indeterminate. Left Ventricle Left ventricle size is normal. Normal wall thickness. Severely reduced systolic function. Regional wall motion abnormalities present. Diastolic function is indeterminate. Right Ventricle Not well visualized. Left Atrium Not well visualized. Right Atrium Not well visualized. IVC/SVC IVC diameter is less than or equal to 21 mm and decreases greater than 50% during inspiration; therefore the estimated right atrial pressure is normal (~3 mmHg). Mitral Valve Not well visualized. Mild regurgitation. No stenosis. Tricuspid Valve Not well visualized. Aortic Valve Not well visualized. No regurgitation. AV mean gradient is 6 mmHg. AV peak velocity is 1.66 m/s. AV area by continuity VTI is 1.7 cm2. Pulmonic Valve Not well visualized. Ascending Aorta The sinus of Valsalva (aortic root) and ascending aorta is/areNot well visualized. Pericardium Small localized pericardial effusion present around the inferior left ventricle. Study Details Study quality was poor. A complete 2D, color Doppler, spectral Doppler and M- mode echocardiogram was performed. The apical, parasternal, subcostal and suprasternal views were obtained. Definity ultrasound enhancing agent used. Patient exhibited sinus rhythm. Technical difficulties due to patient's body habitus. Wall Scoring Baseline Score Index: 2.12 The following segments are akinetic: mid anterior and mid anterolateral. The following segments are hypokinetic: basal anterior, basal anteroseptal, basal inferoseptal, basal inferior, basal inferolateral, basal anterolateral, mid anteroseptal, mid inferoseptal, mid inferior, mid inferolateral, apical anterior, apical septal, apical inferior, apical lateral and apex. Procedure Note Maria Fernanda Antunez MD - 03/23/2023 The study is very technially difficult Left Ventricle: Left ventricle size is normal. Normal wall thickness.Severely reduced systolic function. Regional wall motion abnormalitiespresent. Diastolic function is indeterminate. Elizabeth Robles PA-C ECHO CUPID * (ABNORMAL) BLOOD GASES ART + COOX PANEL (03/23/2023 11:47 AM [facility]) Only the most recent of3 resultswithin the time period is included. pH Arterial 7.42 7.35 - 7.45 pH 03/23/2023 12:07 PM [facility] pO2 Arterial 84 80 - 100 mmHg 03/23/2023 12:07 PM [facility] pCO2 Arterial 37 35 - 45 mmHg 12:07 PM [facility] HCO3 Arterial 24.0 20.0 - 30.0 mmol/L 03/23/2023 12:07 PM [facility] BE Arterial -0.4 -2.0 - 2.0 mmol/L 03/23/2023 12:07 PM [facility] Oxyhemoglobin Arterial 96.1 % 03/23/2023 12:07 PM [facility] Dexoyhemoglobin (HHB) % 2.0 % 03/23/2023 12:07 PM [facility] Methemoglobin <0.8 0.0 - 2.0 % 03/23/2023 12:07 PM [facility] Carboxyhemoglobin 1.3 0.0 - 2.0 % 2022 12:07 PM [facility] O2 Content Arterial 11.6 Interpret within clinical context ml/dL 03/23/2023 12:07 PM [facility] Hemoglobin by COOX 8.5(L) 12.0 - 17.6 g/dL 03/23/2023 12:07 PM [facility] O2 Saturation Arterial 98 90 - 100 % 03/23/2023 12:07 PM [facility] FI O2 Arterial 44.0 % 03/23/2023 12:07 PM [facility] Blood, arterial ARTERIAL BLOOD SPECIMEN / Unknown Arterial Puncture / Unknown 03/23/2023 11:47 AM CDT 03/23/2023 12:04 PM [facility] - 03/23/2023 12:07 PM [facility] Carboxyhemoglobin Normal Concentration: Non-smokers: 0-2%; Smokers: 0-9%; Toxic: >20% [facility]anh Helton [facility] - BLOOD GASES ORDERABLES Performing Organization Address [facility]/ZIP Co de Phone Number [facility] [address] [place] [address], [facility] [phone] * (ABNORMAL) B-TYPE NATRIURETIC PEPTIDE (03/23/2023 8:06 AM CDT) Only the most recent of2 resultswithin the time period is included. BNP 535(H) <100 pg/mL 03/23/2023 8:48 AM CDT [facility] Comment: A decision threshold of 100 pg/mL has been demonstrated to provide the maximal combination of sensitivity, specificity and predictive value for the diagnosis of congestive heart failure (CHF). Virtually all patients with no evidence of CHF have BNP values less than 100 pg/mL. A BNP value greater than 100 pg/mL is consistent with the diagnosis of CHF in the appropriate clinical setting. In a study of 693 patients (male and female) with diagnosed CHF, the following values were determined based on the NYHA functional classification system: NYHA Functional Class Mean Valule (pg/mL) % >100 pg/mL I 320 58.1 II 432 73.0 III 656 79.0 IV 1635 98.3 Blood BLOOD SPECIMEN / Unknown Lab Venipuncture / Unknown 03/23/2023 8:06 AM CDT 03/23/2023 8:15 AM CDT Oanh Helton [facility] - CHEMISTRY O RDERABLES Performing Organization Address [facility]/ZIP Co de Phone Number [facility] [address] [place] [address], [facility] [phone] * URINALYSIS REFLEX MICROSCOPIC REFLEX CULTURE (03/22/2023 11:23 AM CDT) Only the most recent of3 resultswithin the time period is included. Color UA Yellow Straw, Yellow 03/22/2023 11:53 AM CDT [facility] Clarity UA Clear Clear 03/22/2023 11:53 AM CDT [facility] Specific [place] UA 1.009 1.005 - 1.030 03/22/2023 11:53 AM CDT [facility] pH UA 6.0 5.0 - 8.0 pH 03/22/2023 11:53 AM CDT [facility] Protein UA Negative Negative 03/22/2023 11:53 AM CDT [facility] Glucose UA Negative Negative 03/22/2023 11:53 AM CDT [facility] Ketone UA Negative Negative 03/22/2023 11:53 AM CDT [facility] Bilirubin UA Negative Negative 03/22/2023 11:53 AM CDT [facility] Blood UA Negative Negative 03/22/2023 11:53 AM CDT [facility] Nitrite UA Negative Negative 03/22/2023 11:53 AM CDT [facility] Leukocyte Esterase Negative Negative 03/22/2023 11:53 AM CDT [facility] Urobilinogen UA Negative Negative mg/dL 03/22/2023 11:53 AM T [facility] Comment UA Microscopic not indicated. 03/22/2023 11:53 AM T [facility] Urine URINE SPECIMEN OBTAINED BY CLEAN CATCH PROCEDURE / Unknown Collection / Unknown 03/22/2023 11:23 AM CDT 03/22/2023 11:36 AM CDT Narrative [facility] - 03/22/2023 11:53 AM CDT Yash A Carolyn DO LAB - URINALYSIS ORD ERABLES [facility] [address] [place] [address], [facility] [phone] * EKG 12-LEAD (03/22/2023 10:22 AM CDT) Only the most recent of4 resultswithin the time period is included. Ventricular Rate 84 BPM [facility] Atrial Rate 84 BPM [facility] P-R Interval 192 ms [facility] QRS Duration ms 156 ms [facility] Q-T Interval ms 414 ms [facility] QTC Calculation (Bezet) 489 ms [facility] Calculated P [place] 44 degrees [facility] Calculated R [place] -9 degrees [facility] Calculated T [place] 146 degrees [facility] Interpretation EKG NORMAL SINUS RHYTHM LEFT BUNDLE BRANCH BLOCK ABNORMAL ECG WHEN COMPARED WITH ECG OF 15-MAR-2023 11:21, VENT-RATE HAS INCREASED BY 23 BPM Confirmed by LAVON ALAS MD ([id number]) on 03/23/2023 10:46:42 AM [facility] 03/22/2023 10:2 2 AM CDT 03/23/2023 10:46 AM CDT Yash Leon DO ECG ORDERABLES Performing Organization Address [facility] Co de Phone Number [facility] * (ABNORMAL) PTT [facility] (03/21/2023 2:26 AM CDT) Only the most recent of19 resultswithin the time period is included. APTT 90.3(H) 23.0 - 38.4 Seconds 03/21/2023 3:09 AM CDT [facility] Comment:Suggested therapeuti c range for full dose I.V. unfractionated heparin therapy for venous thromboembolism is 71 to 109 seconds. Blood BLOOD SPECIMEN / Unknown Lab Venipuncture / Unknown 03/21/2023 2:26 AM CDT 03/21/2023 2:41 AM CDT Yash Leon DO LAB - COAGULATION OR DERABLES Performing Organization Address [facility] Co de Phone Number [address] [address], [facility] [phone] * TSH REFLEX FREE T4 (03/21/2023 2:26 AM CDT) Pathologist [facility] TSH 0.706 0.350 - 4.940 uIU/mL 03/21/2023 3:33 AM CDT [facility] Blood BLOOD SPECIMEN / Unknown Lab Venipuncture / Unknown 03/21/2023 2:26 AM CDT 03/21/2023 2:41 AM CDT Fransisco Caldera PA-C LAB - CHEMISTRY O RDERABLES Performing Organization Address [facility]/ZIP Co de Phone Number [address] [address] [phone] * (ABNORMAL) CBC W AUTO DIFFERENTIAL (03/18/2023 8:26 PM T) Only the most recent of5 resultswithin the time period is included. WBC 8.1 3.5 - 10.5 10 3/uL 03/18/2023 8:46 PM [facility] RBC 2.71(L) 4.30 - 5.70 10 6/uL 03/18/2023 8:46 PM [facility] Hemoglobin 8.0(L) 12.0 - 17.6 g/dL 03/18/2023 8:46 PM [facility] Hematocrit 24.7(L) 35.2 - 51.7 % 03/18/2023 8:46 PM [facility] MCV 91.1 80.7 - 98.3 fL 03/18/2023 8:46 PM [facility] MCH 29.5 26.7 - 34.0 pg 03/18/2023 8:46 PM [facility] MCHC 32.4 30.8 - 35.9 g/dL 03/18/2023 8:46 PM [facility] RDW-SD 43.6 36.0 - 50.0 fL 03/18/2023 8:46 PM [facility] RDW-CV 13.2 11.2 - 14.8 % 03/18/2023 8:46 PM [facility] Platelet Count 128(L) 150 - 400 10 3/uL 03/18/2023 8:46 PM [facility] MPV 11.7 9.4 - 12.9 fL 03/18/2023 8:46 PM [facility] Immature Platelet Fraction 3.9 1.1 - 6.2 % 03/18/2023 8:46 PM [facility] nRBC Absolute 0.00 0 10 3/uL 03/18/2023 8:46 PM [facility] nRBC Auto 0.0 0 /100 WBC 03/18/2023 8:46 PM [facility] Neutrophils % 77.4(H) 35.0 - 70.0 % 03/18/2023 8:46 PM [facility] Lymphocytes % 10.9(L) 20.0 - 43.0 % 03/18/2023 8:46 PM [facility] Monocytes % 10.9 5.0 - 13.0 % 03/18/2023 8:46 PM [facility] Eosinophils % 0.1 0.0 - 6.0 % 03/18/2023 8:46 PM [facility] Basophil % 0.2 0.0 - 2.0 % 03/18/2023 8:46 PM [facility] Neutrophils Absolute 6.24 1.60 - 7.00 10 3/uL 03/18/2023 8:46 PM [facility] Lymphocyte Absolute 0.88(L) 1.10 - 3.90 10 3/uL 03/18/2023 8:46 PM [facility] Monocytes Absolute 0.88 0.26 - 1.07 10 3/uL 03/18/2023 8:46 PM [facility] Eosinophils Absolute 0.01 0.00 - 0.47 10 3/uL 03/18/2023 8:46 PM [facility] Basophils Absolute 0.02 0.00 - 0.08 10 3/uL 03/18/2023 8:46 PM [facility] Immature Granulocytes % 0.5 0.0 - 1.0 % 03/18/2023 8:46 PM [facility] Immature Granulocytes Absolute 0.04 03/18/2023 8:46 PM [facility] Blood BLOOD SPECIMEN / Unknown Venipuncture / Unknown 03/18/2023 8:26 PM CDT 03/18/2023 8:38 PM CDT Yash Leon DO LAB - HEMATOLOGY ORD ERABLES [address] [address], [facility] [phone] * LACTIC ACID BLOOD (03/18/2023 8:26 PM CDT) Lactic Acid-Stat 1.7 <=2.0 mmol/L 03/18/2023 9:00 PM CDT [facility] Blood BLOOD SPECIMEN / Unknown Venipuncture / Unknown 03/18/2023 8:26 PM CDT 03/18/2023 8:38 PM CDT Yash Leon DO LAB - CHEMISTRY ABHISHEKTraci JAKE Performing Organization Address City/State/[facility] Co de Phone Number [facility] [address] [place] [address], [facility] [phone] * CT ANGIO CHEST PULM EMBOLISM (03/18/2023 8:15 PM CDT) Anatomical Region Laterality Modality Chest Computed Tomogra phy 03/18/2023 8:36 PM CDT Impressions 03/19/2023 8:33 AM CDT Impression: 1.No evidence of acute pulmonary embolism. 2.Redemonstrated pleural calcifications with pleural effusions. 3.Interval increase in size of the left lung base loculated collection with thick enhancing wall suggestive of empyema. Findings were communicated to Dr. Holly by telephone by Dr Hdz at 03/18/2023 9:12 PM with readback comprehension and verification. > Dictated by Jayden Hdz MD (residential care officer). I, Justice Guo MD have personally reviewed and interpreted this examination/study. > Interpreting Provider: Justice Guo MD on 03/19/2023 8:33 AM Narrative 03/19/2023 8:33 AM CDT PROCEDURE: CT ANGIO CHEST PULM EMBOLISM, DATE/TIME OF EXAM: 03/18/2023 8:16 PM, LOCATION [facility] INDICATION: W19.XXXA: Fall, initial encounter ADDITIONAL CLINICAL INFORMATION: Ordering Provider Reason For Exam: possible aspiration, possible PE COMPARISON: CT chest without contrast on 03/17/2023. TECHNIQUE: CT of the chest was performed following the uneventful administration of 75 mL of Isovue 370 intravenous contrast according to a pulmonary embolism protocol. Multiplanar reconstructions were created. Findings: Study Quality This examination for the diagnosis of pulmonary embolism is adequate. Pulmonary Arteries: No evidence of acute pulmonary embolism. Thoracic Vasculature: No vascular abnormality is present. Lower Neck and Axillae: Normal. Lungs: There is biapical scarring. There are bilateral pleural calcifications. Small left and trace right pleural effusions are present. Redemonstrated rounded collection in the left lung base now increased in size measuring 10x6 cm (series 6 image 172), previously measuring 8x4 cm. Additional areas of patchy atelectasis and scarring are noted throughout both lungs, also increased from prior CT. There is nodularity of the extrapleural soft tissues, most prominently seen on series 6 image 104 with a hyperdense mass measuring 1.4 x 3.2 cm, this is similar to the prior exam and represent a hematoma. No pneumothorax. Scattered, small pulmonary nodules are unchanged in size and number. Heart and Pericardium: The cardiac chambers are normal in size. No pericardial fluid or thickening is present. Mediastinum and Julieta: No enlarged lymph nodes are present. Bones and Chest Wall: There are median sternotomy wires. Redemonstrated fractures of the left lateral fourth through eighth ribs including segmental fractures of the fourth through seventh ribs. No suspicious bone lesion. There are degenerative changes in the spine. Upper Abdomen: Granulomas are noted in the spleen. Otherwise, the visible portions of the upper abdominal organs are normal. Procedure Note Justice Guo MD - 03/19/2023 PROCEDURE: CT ANGIO CHEST PULM EMBOLISM, DATE/TIME OF EXAM: 03/18/2023 8:16 PM, LOCATION [facility] INDICATION: W19.XXXA: Fall, initial encounter ADDITIONAL CLINICAL INFORMATION: Ordering Provider Reason For Exam: possible aspiration, possible PE COMPARISON: CT chest without contrast on 03/17/2023. TECHNIQUE: CT of the chest was performed following the uneventful administration of 75 mL of Isovue 370 intravenous contrast according toa pulmonary embolism protocol. Multiplanar reconstructions were created. Findings: Study Quality This examination for the diagnosis of pulmonary embolism is adequate. Pulmonary Arteries: No evidence of acute pulmonary embolism. Thoracic Vasculature: No vascular abnormality is present. Lower Neck and Axillae: Normal. Lungs: There is biapical scarring. There are bilateral pleural calcifications. Small left and trace right pleural effusions are present. Redemonstrated rounded collection in the left lung base now increased in size measuring 10x6 cm (series 6 image 172), previously measuring 8x4 cm. Additionalareas of patchy atelectasis and scarring are noted throughout both lungs, also increased from prior CT. There is nodularity of the extrapleural soft tissues, most prominently seen on series 6 image 104 with a hyperdensemass measuring 1.4 x 3.2 cm, this is similar to the prior exam and representa hematoma. No pneumothorax. Scattered, small pulmonary nodules are unchanged insize and number. Heart and Pericardium: The cardiac chambers are normal in size. No pericardial fluid orthickening is present. Mediastinum and Julieta: No enlarged lymph nodes are present. Bones and Chest Wall: There are median sternotomy wires. Redemonstrated fractures of the left lateral fourth through eighth ribs including segmental fractures of the fourth through seventh ribs. No suspicious bone lesion. There are degenerative changes in the spine. Upper Abdomen: Granulomas are noted in the spleen. Otherwise, the visible portions ofthe upper abdominal organs are normal. Impression: 1.No evidence of acute pulmonary embolism. 2.Redemonstrated pleural calcifications with pleural effusions. 3.Interval increase in size of the left lung base loculated collectionwith thick enhancing wall suggestive of empyema. Findings were communicated to Dr. Holly by telephone by Dr Hdz at 03/18/2023 9:12 PM with readback comprehension and verification. > Dictated by Jayden Hdz MD (residential care officer). I, Justice Guo MD have personally reviewed and interpreted this examination/study. > Interpreting Provider: Justice Guo MD on 38:33 AM Yash Reji Carolyn DO CT ORDERABLES * CT HEAD WO CONTRAST (03/18/2023 8:15 PM CDT) Only the most recent of3 resultswithin the time period is included. Anatomical Region Laterality Modality Head Computed Tomogra phy 03/18/2023 8:36 PM CDT Impressions 03/18/2023 8:39 PM CDT IMPRESSION: No acute intracranial abnormality. > Interpreting Provider: Micheal Hurd MD, PhD on 03/18/2023 8:39 PM Narrative 03/18/2023 8:39 PM CDT PROCEDURE: CT HEAD WO CONTRAST, DATE/TIME OF EXAM: 03/18/2023 8:16 PM, LOCATION: [facility] INDICATION: W19.XXXA: Fall, initial encounter ADDITIONAL CLINICAL INFORMATION: Ordering Provider Reason For Exam: AMS EXAMINATION: CT scan of the head without intravenous contrast TECHNIQUE: CT of the head was performed without intravenous contrast according to standard protocol. CT dose reduction technique was used, including Automated Exposure Control. COMPARISON: Head CT 03/14/2023. FINDINGS: Streak/hardening artifact from patient's dental amalgam limits assessment of the posterior fossa. Within this limitation, the following assessment is made: BRAIN PARENCHYMA: No acute hemorrhage, large vascular territory infarct, or mass effect. Left superior cerebellum with a small chronic lacune. Scattered white matter hypodensities, which are nonspecific but likely represents the sequela of chronic microangiopathic change. Mild global parenchymal volume loss, which is commensurate for age. VENTRICLES/EXTRA-AXIAL SPACES: No ventriculomegaly or extra-axial collection. Basal cisterns are patent. EXTRACRANIAL STRUCTURES: Normal bones and soft tissues. Left maxillary sinus floor with a small mucosal retention cyst versus polyp. Remaining paranasal sinuses are clear. Hypoplastic mastoid air cells are clear. Bilateral lens replacement; otherwise, orbits are unremarkable. Mild calcific atherosclerosis of the carotid siphons. Procedure Note Micheal Hurd MD - 03/18/2023 PROCEDURE: CT HEAD WO CONTRAST, DATE/TIME OF EXAM: 03/18/2023 8:16 PM, LOCATION: [facility] INDICATION: W19.XXXA: Fall, initial encounter ADDITIONAL CLINICAL INFORMATION: Ordering Provider Reason For Exam: AMS EXAMINATION: CT scan of the head without intravenous contrast TECHNIQUE: CT of the head was performed without intravenous contrast according to standard protocol. CT dose reduction technique was used, including Automated Exposure Control. COMPARISON: Head CT 03/14/2023. FINDINGS: Streak/hardening artifact from patient's dental amalgam limitsassessment of the posterior fossa. Within this limitation, the following assessmentis made: BRAIN PARENCHYMA: No acute hemorrhage, large vascular territory infarct,or mass effect. Left superior cerebellum with a small chronic lacune. Scattered white matter hypodensities, which are nonspecific but likely represents the sequela of chronic microangiopathic change. Mild global parenchymal volume loss, which is commensurate for age. VENTRICLES/EXTRA-AXIAL SPACES: No ventriculomegaly or extra-axial collection. Basal cisterns are patent. EXTRACRANIAL STRUCTURES: Normal bones and soft tissues. Left maxillary sinus floor with a small mucosal retention cyst versus polyp. Remaining paranasal sinuses are clear. Hypoplastic mastoid air cells are clear. Bilateral lens replacement; otherwise, orbits are unremarkable. Mild calcific atherosclerosis of the carotid siphons. IMPRESSION: No acute intracranial abnormality. > Interpreting Provider: Micheal Hurd MD, PhD on 03/18/2023 8:39 PM Y[address] Leon DO CT ORDERABLES * XR CHEST 1VW (03/18/2023 4:07 PM CDT) Anatomical Region Laterality Modality Chest Radiographic Amndy ging 03/19/2023 7:13 AM CDT Narrative 03/19/2023 6:36 PM CDT PROCEDURE: XR CHEST 1VW, DATE/TIME OF EXAM: 03/18/2023 4:22 PM, LOCATION [facility] INDICATION: S22.49XA: Closed fracture of multiple ribs, unspecified laterality, initial encounter COMPARISON: Chest x-ray 03/18/2023 at 4:29 AM TECHNIQUE: Frontal radiograph of the chest. FINDINGS/IMPRESSION: Devices/lines: *Sternotomy wires are intact *Aortic valve annuloplasty. Stable appearance of interstitial patchy airspace opacities from prior examination consistent with pulmonary edema. Interval increase in small layering left greater than right pleural effusions with associated compressive atelectasis and/or airspace disease. No pneumothorax. The cardiomediastinal silhouette is stable. Redemonstrated left-sided rib deformities. Report dictated by Ivan Cintron MD, MD (residential care officer). IMalcolm MD have personally reviewed and interpreted this examination/study. > Interpreting Provider: Malcolm Garcia MD on 03/19/2023 6:36 PM Procedure Note Malcolm Garcia MD - 03/19/2023 PROCEDURE: XR CHEST 1VW, DATE/TIME OF EXAM: 03/18/2023 4:22 PM, LOCATION [facility] INDICATION: S22.49XA: Closed fracture of multiple ribs, unspecified laterality,initial encounter COMPARISON: Chest x-ray 03/18/2023 at 4:29 AM TECHNIQUE: Frontal radiograph of the chest. FINDINGS/IMPRESSION: Devices/lines: *Sternotomy wires are intact *Aortic valve annuloplasty. Stable appearance of interstitial patchy airspace opacities from prior examination consistent with pulmonary edema. Interval increase in small layering left greater than right pleural effusions with associated compressive atelectasis and/or airspace disease. No pneumothorax. The cardiomediastinal silhouette is stable. Redemonstrated left-sided rib deformities. Report dictated by Ivan Cintron MD, MD (residential care officer). I, Malcolm Garcia MD have personally reviewed and interpreted this examination/study. > Interpreting Provider: Malcolm Garcia MD on 03/19/2023 6:36 PM Yash Leon DO DIAGNOSTIC IMAGING O RDERABLES * (ABNORMAL) URINALYSIS REFLEX TO MICROSCOPIC NO CULTURE (03/18/2023 3:39 AM CDT) Color UA Yellow Straw, Yellow 03/18/2023 4:07 AM [facility] Clarity UA Clear Clear 03/18/2023 4:07 AM [facility] Specific [place] UA 1.008 1.005 - 1.030 03/18/2023 4:07 AM [facility] pH UA 5.0 5.0 - 8.0 pH 03/18/2023 4:07 AM [facility] Protein UA Negative Negative 03/18/2023 4:07 AM [facility] Glucose UA Negative Negative 03/18/2023 4:07 AM [facility] Ketone UA Negative Negative 03/18/2023 4:07 AM [facility] Bilirubin UA Negative Negative 03/18/2023 4:07 AM [facility] Blood UA Negative Negative 03/18/2023 4:07 AM [facility] Nitrite UA Negative Negative 03/18/2023 4:07 AM [facility] Leukocyte Esterase Negative Negative 03/18/2023 4:07 AM [facility] Urobilinogen UA Negative Negative mg/dL 03/18/2023 4:07 AM CDT [facility] RBC UA 6-10(A) None Seen, 0-2, 3-5 /HPF 03/18/2023 4:07 AM CDT [facility] WBC UA 0-5 None Seen, 0-5 /HPF 03/18/2023 4:07 AM CDT [facility] Squamous Epithelial Cells UA None Seen None Seen, 0-2, 3-5 /HPF 03/18/2023 4:07 AM CDT [facility] Urine URINE SPECIMEN OBTAINED BY SINGLE CATHETERIZATION OF URINARY BLADDER / Unknown Collection / Unknown 03/18/2023 3:39 AM CDT 03/18/2023 3:43 AM CDT [facility] - 03/18/2023 4:07 AM CDT Yash Leon DO LAB - URINALYSIS ORD ERABLES [address] [address], [facility] [phone] * PREPARE (CROSSMATCH) RBC UNIT(S), 2 Units (03/18/2023 1:17 AM CDT) Unit Description AS1 LR PRBC [facility] Unit ABO O [facility] Unit Rh POS [facility] Product Number R02 [facility] Unit Donor # [id number] [facility] Unit Status released [facility] Product Code [id number] [facility] Blood Type Barcode 5100 [facility] Expiration Date S BLOOD BANK LAB Unit Description -1 LR PRBC LV [facility] Unit ABO O [facility] Unit Rh POS [facility] Product Number R52 [facility] Unit Donor # [id number] [facility] Unit Status released [facility] Product Code [id number] [facility] Blood Type Barcode 5100 [facility] Expiration Date S BLOOD BANK LAB Blood Bank BLOOD SPECIMEN / Unknown 03/14/2023 7:59 PM CDT Zaynab Galvez MD LAB - BLOOD BANK ORD ERABLES [facility] [address] [place] [address], [facility] [phone] * CT CHEST WO CONTRAST (03/17/2023 9:16 AM CDT) Anatomical Region Laterality Modality Chest Computed Tomogra phy 03/17/2023 9:52 AM CDT Impressions 03/17/2023 12:37 PM CDT Impression: 1.Small left and trace right pleural effusions with progressive left basilar atelectasis with pleural calcifications. 2.New traumatic hematocele in the left lung base measuring 5.3 cm. 3.Fluid level in the thoracic esophagus which increases risk of aspiration. 4.Redemonstrated left fourth through eighth rib fractures. 5.Redemonstrated pleural calcifications and small bilateral lung nodules. 6.Ectatic ascending thoracic aorta. Report dictated by Eriberto Prieto MD (residential care officer). I, Stephen Rodriguez MD have personally reviewed and interpreted this examination/study. > Interpreting Provider: Stephen Rodriguez MD on 03/17/2023 12:37 PM Narrative 03/17/2023 12:37 PM CDT PROCEDURE: CT CHEST WO CONTRAST, DATE/TIME OF EXAM: 03/17/2023 9:17 AM, LOCATION [facility] INDICATION: [id number].XXXA: Fall, initial encounter ADDITIONAL CLINICAL INFORMATION: Ordering Provider Reason For Exam: Left pleural effusion Technologist Note: Additional: COMPARISON: CT chest 03/14/2023 TECHNIQUE: CT of the chest was performed without contrast according to standard protocol Findings: Evaluation of visceral and vascular structures is degraded due to lack of intravenous contrast administration. Lower Neck and Axillae: Normal. Lungs: There is biapical scarring. There are bilateral pleural calcifications. Small left and trace right pleural effusions are present. There is a new rounded collection in the left lung base seen on series 3 image 64 measuring 5.9 x 3.8 cm with a blood fluid fluid level, likely representing a traumatic pneumatoceles. Additional areas of patchy atelectasis and scarring are noted throughout both lungs, also increased from prior CT. No pneumothorax. Scattered, small pulmonary nodules are unchanged in size and number. Heart and Pericardium: The heart is borderline enlarged. 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 No pericardial fluid. Mediastinum and Julieta: A fluid level is noted in the thoracic esophagus. No enlarged lymph nodes are present. Thoracic Vasculature: Ectatic ascending thoracic aorta, measures 4.4 cm in transverse diameter. There are calcifications of thoracic aorta and branch arteries including the coronary arteries. Coronary stents are likely present. Bones and Chest Wall: There are median sternotomy wires. Redemonstrated fractures of the left lateral fourth through eighth ribs including segmental fractures of the fourth through seventh ribs. No suspicious bone lesion. There are degenerative changes in the spine. No focal soft tissue abnormality. Upper Abdomen: The imaged upper abdomen is unremarkable. Procedure Note Stephen Rodriguez MD - 03/17/2023 PROCEDURE: CT CHEST WO CONTRAST, DATE/TIME OF EXAM: 03/17/2023 9:17 AM, LOCATION [facility] INDICATION: [id number].XXXA: Fall, initial encounter ADDITIONAL CLINICAL INFORMATION: Ordering Provider Reason For Exam: Left pleural effusion Technologist Note: Additional: COMPARISON: CT chest 03/14/2023 TECHNIQUE: CT of the chest was performed without contrast according to standard protocol Findings: Evaluation of visceral and vascular structures is degraded due to lackof intravenous contrast administration. Lower Neck and Axillae: Normal. Lungs: There is biapical scarring. There are bilateral pleural calcifications. Small left and trace right pleural effusions are present. There is a new rounded collection in the left lung base seen on series 3 image 64 measuring 5.9 x 3.8 cm with a blood fluid fluid level, likelyrepresenting a traumatic pneumatoceles. Additional areas of patchy atelectasis and scarring are noted throughout both lungs, also increased from prior CT.No pneumothorax. Scattered, small pulmonary nodules are unchanged in sizeand number. Heart and Pericardium: The heart is borderline enlarged. There is an aortic valve prosthesis.No pericardial fluid. Mediastinum and Julieta: A fluid level is noted in the thoracic esophagus. No enlarged lymphnodes are present. Thoracic Vasculature: Ectatic ascending thoracic aorta, measures 4.4 cm in transversediameter. There are calcifications of thoracic aorta and branch arteries including the coronary arteries. Coronary stents are likely present. Bones and Chest Wall: There are median sternotomy wires. Redemonstrated fractures of the left lateral fourth through eighth ribs including segmental fractures of the fourth through seventh ribs. No suspicious bone lesion. There are degenerative changes in the spine. No focal soft tissue abnormality. Upper Abdomen: The imaged upper abdomen is unremarkable. Impression: 1.Small left and trace right pleural effusions with progressive left basilar atelectasis with pleural calcifications. 2.New traumatic hematocele in the left lung base measuring 5.3 cm. 3.Fluid level in the thoracic esophagus which increases risk ofaspiration. 4.Redemonstrated left fourth through eighth rib fractures. 5.Redemonstrated pleural calcifications and small bilateral lungnodules. 6.Ectatic ascending thoracic aorta. Report dictated by Eriberto Prieto MD (residential care officer). I, Stephen Rodriguez MD have personally reviewed and interpreted this examination/study. > Interpreting Provider: Stephen Rodriguez MD on 03/17/2023 12:37 [address] DO [address] ORDERABLES * (ABNORMAL) CALCIUM IONIZED WHOLE BLOOD (03/16/2023 2:09 AM CDT) Only the most recent of2 resultswithin the time period is included. [facility] Calcium Ionized 1.31 mmol/L 03/16/2023 2:15 AM CDT [facility] pH 7.30(L) 7.35 - 7.45 pH 03/16/2023 2:15 AM CDT [facility] Ionized Calcium pH Adjusted 1.26 1.19 - 1.34 mmol/L 03/16/2023 2:15 AM CDT [facility] Blood BLOOD SPECIMEN / Unknown Venipuncture / Unknown 03/16/2023 2:09 AM CDT 03/16/2023 2:12 AM CDT Yash Funes MD LAB - CHEMISTRY OR DERABLES [facility] [address] [place] [address], [facility] [phone] * (ABNORMAL) URINALYSIS W/MICROSCOPIC NO CULTURE (03/15/2023 4:26 AM CDT) Color UA Yellow Straw, Yellow 03/15/2023 5:58 AM [facility] Clarity UA Clear Clear 03/15/2023 5:58 AM [facility] Specific [place] UA 1.020 1.005 - 1.030 03/15/2023 5:58 AM [facility] pH UA 5.5 5.0 - 8.0 pH 03/15/2023 5:58 AM [facility] Protein UA 1+(A) Negative 03/15/2023 5:58 AM [facility] Glucose UA Negative Negative 03/15/2023 5:58 AM [facility] Ketone UA Negative Negative 03/15/2023 5:58 AM [facility] Bilirubin UA Negative Negative 03/15/2023 5:58 AM [facility] Blood UA Negative Negative 03/15/2023 5:58 AM [facility] Nitrite UA Negative Negative 03/15/2023 5:58 AM [facility] Leukocyte Esterase Negative Negative 03/15/2023 5:58 AM [facility] Urobilinogen UA Negative Negative mg/dL 03/15/2023 5:58 AM [facility] RBC UA 3-5 None Seen, 0-2, 3-5 /HPF 03/15/2023 5:58 AM [facility] WBC UA 0-5 None Seen, 0-5 /HPF 03/15/2023 5:58 AM [facility] Squamous Epithelial Cells UA None Seen None Seen, 0-2, 3-5 /HPF 03/15/2023 5:58 AM [facility] Urine URINE SPECIMEN OBTAINED BY CLEAN CATCH PROCEDURE / Unknown Collection / Unknown 03/15/2023 4:26 AM T 03/15/2023 4:37 AM [facility] - 03/15/2023 5:58 AM [facility] Yash Leon DO LAB - URINALYSIS ORD ERABLES [address] [address], [facility] [phone] * (ABNORMAL) URINE DRUG SCREEN IMMUNOASSAY (03/15/2023 4:26 AM [facility]) Pathologist [facility] Amphetamines Screen Urine Negative Negative : < 1000 ng/mL 03/15/2023 5:04 AM [facility] Barbiturates Screen Urine Negative Negative : < 200 ng/mL 03/15/2023 5:04 AM [facility] Benzodiazepine Screen Urine Negative Negative : < 200 ng/mL 03/15/2023 5:04 AM [facility] Opiates Urine Positive(A) Negative : < 300 ng/mL 03/15/2023 5:04 AM [facility] Comment:Positive urine opiat e screening results should be confirmed by another generally accepted non-immunological method such as gas chromatography or mass spectrometry. Cocaine Metabolites Urine Negative Negative : < 300 ng/mL 03/15/2023 5:04 AM [facility] Phencyclidine Screen Urine Negative Negative : < 25 ng/ml 03/15/2023 5:04 AM [facility] Cannabinoids Screen Urine Negative Negative : <50 ng/mL 03/15/2023 5:04 AM [facility] Methadone Screen Urine Negative Negative : < 300 ng/mL 03/15/2023 5:04 AM [facility] Fentanyl Screen Urine Negative Negative : <1.5 ng/mL 03/15/2023 5:04 AM [facility] Urine URINE / Unknown Collection / Unknown 03/15/2023 4:26 AM [facility] 03/15/2023 4:37 AM [facility] - 03/15/2023 5:04 AM [facility] The Urine Toxicology Screening Panel does not screen for Propoxyphene, Meprobamate, Carisoprodol, Trazodone, midk-flg-akouyqh medications and/or volatiles (Acetone, Isopropanol, Methanol or Ethylene Glycol). Ethanol, Salicylate, Acetaminophen, Tricyclic Antidepressants and several therapeutic drugs may be individually assayed in serum or plasma specimen. Toxicology testing by the [facility] is an aid to medical diagnosis and treatment of patients. No documented chain of custody was maintained. Results are intended to be used for clinical purposes only. Yash Leon DO LAB - URINE CHEMISTR Y ORDERABLES Performing Organization Address [facility]/ZIP Co de Phone Number [address] [address], [facility] [phone] * BLOOD TYPE VERIFICATION (03/15/2023 12:02 AM CDT) ABO Rh O POS 03/15/2023 1:0 5 AM CDT [facility] Blood Bank BLOOD SPECIMEN / Unknown Venipuncture / Unknown 03/15/2023 12:02 AM CDT 03/15/2023 12:09 AM CDT Holly Membreno MD LAB - BLOOD BANK ORD ERABLES Performing Organization Address [facility] Co de Phone Number [facility] [address] [place] [address], [facility] [phone] * ALCOHOL ETHYL BLOOD (03/14/2023 7:50 PM CDT) Ethanol (mg/dL) <10 <10 mg/dL 8:18 PM CDT [facility] Ethanol Calculated (g/dL) <0.010 <=0.010 g/dL 03/14/2023 8:18 PM CDT [facility] Blood BLOOD SPECIMEN / Unknown Venipuncture / Unknown 03/14/2023 7:50 PM CDT 03/14/2023 7:54 PM CDT Narrative [facility] - 03/14/2023 8:18 PM CDT Ethanol Interp <10: None Detected. Depression of COMPLIANCE PROGRAM MANAGER: >100 mg/dl Potentially Critical: >250 mg/dl Potentially Fatal >400 mg/dl Ethanol in the patient's blood will contribute to the osmolar gap. Ethanol's contribution to the osmolar gap can be estimated by dividing the concentration of ethanol in mg/dL by 4.6. This test is for clinical use only and does not equal a SADIE for legal purposes. Yash Leon DO LAB - CHEMISTRY ORDE RABLES Performing Organization Address City/[facility]/ZIP Co de Phone Number [facility] [address] [address], [facility] [phone] * CT CHEST ABDOMEN PELVIS WO CONT (03/14/2023 7:48 PM CDT) Anatomical Region Laterality Modality Chest, Abdomen, Pelvis Computed Tomography 03/15/2023 7:02 AM CDT Impressions 03/15/2023 9:31 AM CDT IMPRESSION: 1.Mildly displaced fractures of the posteriolateral left fourth through eighth ribs with a small volume of adjacent pleural hematoma. Of note, left fifth, sixth and seventh rib fractures are segmental. 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 3.Multiple sub-4 mm pulmonary nodules, for example in the right lower lobe. 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 Report dictated by Alek Davis M.D. (residential care officer) 03/15/2023 7:19 AM IPardeep have personally reviewed and interpreted this examination/study. > Interpreting Provider: Pardeep Schaffer on 03/15/2023 9:31 AM Narrative 03/15/2023 9:31 AM CDT PROCEDURE: CT CHEST ABDOMEN PELVIS WO CONT, DATE/TIME OF EXAM: 03/14/2023 7:50 PM, LOCATION [facility] INDICATION: W19.XXXA: Fall, initial encounter ADDITIONAL CLINICAL INFORMATION: Ordering Provider Reason For Exam: intrabdominal injury after fall COMPARISON: None. TECHNIQUE: CT of the chest, abdomen and pelvis without intravenous contrast. Coronal and sagittal reformatted images were submitted. FINDINGS: Lower neck/axillae: No evidence of axillary lymphadenopathy. Lungs: Small volume of apical scarring and bibasilar atelectasis. There are scattered small, <4 mm pulmonary nodules, for reference in the right lower lobe (series 7, image 58). Pleural spaces: Bilateral calcified pleural plaques are present possibly related prior exposure. Probable trace superimposed pleural fluid. There is a small volume of hematoma within the left pleural effusion adjacent to the mildly displaced rib fractures. Mediastinum: The heart and great vessels of the chest are normal. Atherosclerosis and calcification in the aortic arch. An aortic valve prosthesis is present. There is atherosclerosis of the coronary arteries. No pericardial thickening or effusion. No tracheal collapse or deviation. Hepatobiliary: Normal liver size and attenuation. No gallbladder calculus, gallbladder wall thickening or biliary dilation. Pancreas: There is diffuse fatty atrophy of pancreas. No evidence of peripancreatic fluid collections. Spleen: Normal attenuation without mass. Scattered calcified granulomas within the spleen. Adrenal glands: Normal in morphology without mass lesion. : The bilateral kidneys are atrophic. A hypoattenuating simple cyst is present within the inferior pole of left kidney. A subcentimeter hypoattenuating lesion within the superior pole of the right kidney is too small to characterize. There is retained contrast within the renal collecting system, ureters, and bladder. No evidence of hydronephrosis. No bladder or deep pelvic soft tissue abnormality is seen. The prostate is partially calcified. GI: No obstruction or abnormal bowel wall thickening. Colonic diverticulosis without evidence of diverticulitis. Vascular: Mild aneurysmal dilation of the ascending aorta up to 4.3 cm in transverse diameter. Extensive atherosclerosis of the aorta and branch vessels.. Other: No free air or abnormal fluid collection. Bones: There are acute appearing, mildly displaced fractures of the lateral left fourth-seventh ribs and posterior left eighth rib. Of note, the left fifth, sixth and seventh rib fractures are segmental. Postsurgical changes from median sternotomy are present. Sternotomy wires appear intact. Multilevel degenerative changes present in the spine, particularly in the lumbar spine. Procedure Note Pardeep Schaffer MD - 03/15/2023 PROCEDURE: CT CHEST ABDOMEN PELVIS WO CONT, DATE/TIME OF EXAM:03/14/2023 7:50 PM, LOCATION [facility] INDICATION: [id number].XXXA: Fall, initial encounter ADDITIONAL CLINICAL INFORMATION: Ordering Provider Reason For Exam: intrabdominal injury after fall COMPARISON: None. TECHNIQUE: CT of the chest, abdomen and pelvis without intravenous contrast. Coronal and sagittal reformatted images were submitted. FINDINGS: Lower neck/axillae: No evidence of axillary lymphadenopathy. Lungs: Small volume of apical scarring and bibasilar atelectasis. Thereare scattered small, <4 mm pulmonary nodules, for reference in the rightlower lobe (series 7, image 58). Pleural spaces: Bilateral calcified pleural plaques are present possibly related prior exposure. Probable trace superimposed pleural fluid. Thereis a small volume of hematoma within the left pleural effusion adjacent tothe mildly displaced rib fractures. Mediastinum: The heart and great vessels of the chest are normal. Atherosclerosis and calcification in the aortic arch. An aortic valve prosthesis is present. There is atherosclerosis of the coronaryarteries. No pericardial thickening or effusion. No tracheal collapse ordeviation. Hepatobiliary: Normal liver size and attenuation. No gallbladdercalculus, gallbladder wall thickening or biliary dilation. Pancreas: There is diffuse fatty atrophy of pancreas. No evidence of peripancreatic fluid collections. Spleen: Normal attenuation without mass. Scattered calcified granulomas within the spleen. Adrenal glands: Normal in morphology without mass lesion. : The bilateral kidneys are atrophic. A hypoattenuating simple cyst is present within the inferior pole of left kidney. A subcentimeter hypoattenuating lesion within the superior pole of the right kidney istoo small to characterize. There is retained contrast within the renal collecting system, ureters, and bladder. No evidence of hydronephrosis.No bladder or deep pelvic soft tissue abnormality is seen. The prostate is partially calcified. GI: No obstruction or abnormal bowel wall thickening. Colonic diverticulosis without evidence of diverticulitis. Vascular: Mild aneurysmal dilation of the ascending aorta up to 4.3 cmin transverse diameter. Extensive atherosclerosis of the aorta and branch vessels.. Other: No free air or abnormal fluid collection. Bones: There are acute appearing, mildly displaced fractures of thelateral left fourth-seventh ribs and posterior left eighth rib. Of note, theleft fifth, sixth and seventh rib fractures are segmental. Postsurgicalchanges from median sternotomy are present. Sternotomy wires appear intact. Multilevel degenerative changes present in the spine, particularly inthe lumbar spine. IMPRESSION: 1.Mildly displaced fractures of the posteriolateral left fourth through eighth ribs with a small volume of adjacent pleural hematoma. Of note,left fifth, sixth and seventh rib fractures are segmental. 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 3.Multiple sub-4 mm pulmonary nodules, for example in the right lowerlobe. 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 Report dictated by Alek Davis M.D. (residential care officer) 03/15/2023 7:19 AM Pardeep Carrolls have personally reviewed and interpreted this examination/study. > Interpreting Provider: Pardeep Schaffer on 03/15/2023 9:31 AM Yash Leon DO CT ORDERABLES * CT LUMBAR SPINE WO CONTRAST (03/14/2023 7:48 PM CDT) Anatomical Region Laterality Modality Spine Computed Tomogra phy 03/14/2023 10:0 1 PM CDT Impressions 03/14/2023 10:26 PM CDT IMPRESSION: 1.No acute intracranial abnormality. 2.No acute fracture or traumatic malalignment of the cervical, thoracic, or lumbar spine. 3.Please refer to concurrently reported chest, abdomen, and pelvis CT for description of additional nonspine-related abnormalities. > Interpreting Provider: Micheal Hurd MD, PhD on 03/14/2023 10:26 PM Narrative 03/14/2023 10:26 PM CDT PROCEDURE: CT HEAD WO CONTRAST, CT CERVICAL SPINE WO CONTRAST, CT LUMBAR SPINE WO CONTRAST, CT THORACIC SPINE WO CONTRAST, DATE/TIME OF EXAM: 03/14/2023 7:50 PM, LOCATION: [facility] INDICATION: W19.XXXA: Fall, initial encounter S22.49XA: Closed fracture of multiple ribs, unspecified laterality, initial encounter ADDITIONAL CLINICAL INFORMATION: Ordering Provider Reason For Exam: Trauma. EXAMINATION: CT scan of the head and CT scan of the cervical, thoracic, and lumbar spine without intravenous contrast TECHNIQUE: CT of the head and cervical spine was performed without intravenous contrast according to standard protocol. CT dose reduction technique was used, including Automated Exposure Control. Reformatted axial, sagittal, and coronal images of the thoracic and lumbar spine were obtained by the technologist from a concurrently performed chest, abdomen, and pelvis CT and sent to the workstation for review. COMPARISON: No prior similar studies are available for comparison. FINDINGS: HEAD: Streak/hardening artifact from patient's dental amalgam limits assessment of the posterior fossa. Within this limitation, the following assessment is made: BRAIN PARENCHYMA: No acute hemorrhage, large vascular territory infarct, or mass effect. Scattered white matter hypodensities, which are nonspecific but likely represents the sequela of chronic microangiopathic change. Mild global parenchymal volume loss, which is commensurate for age. VENTRICLES/EXTRA-AXIAL SPACES: No ventriculomegaly or extra-axial collection. Basal cisterns are patent. EXTRACRANIAL STRUCTURES: Normal bones and soft tissues. Left maxillary sinus floor with a small mucosal retention cyst versus polyp. Remaining paranasal sinuses are clear. Hypoplastic mastoid air cells are clear. Bilateral lens replacement; otherwise, orbits are unremarkable. Mild calcific atherosclerosis of the carotid siphons. CERVICAL SPINE: ALIGNMENT: Mild levoconvex curvature of the cervical spine with mild grade 1 anterolisthesis of C4 on C5. No traumatic malalignment. ATLANTOAXIAL JOINT: The dens is intact, the lateral masses of C1 are normally aligned, and the atlantodental interval is normal. Mild degenerative changes at the C1-C2 level. BONES: Vertebral body heights are maintained without evidence of acute fracture. Osseous fusion of C5-C6 vertebral bodies. Osseous structures are diffusely demineralized. DISCS: Multilevel disc space narrowing with notable obliteration of the disc space at the C5-C6 level secondary to fusion of the vertebral bodies and zzolvolz-pl-bikdzw disc space narrowing and vacuum disc phenomena at the C6-C7 level. DEGENERATIVE CHANGES: Overall moderate multilevel degenerative changes, characterized by varying degrees of posterior disc bulges/osteophyte complexes, facet arthropathy, and uncovertebral joint hypertrophy. SPINAL CANAL/NEUROFORAMEN: Agan-dq-aubwqsfy spinal canal stenosis at the C5-6 level secondary to a posterior disc bulge complex. Multilevel neuroforaminal narrowing that is at the right for, severe at the right C4-C5, moderate at the left C5-C6, and severe at the left C6-C7 secondary to uncovertebral joint hypertrophy. SOFT TISSUES: No prevertebral soft tissue swelling. Visualized neck soft tissues are normal. OTHER: Mild scarring of the lung apices. Mild calcific atherosclerosis of the left carotid bulb. THORACIC SPINE: ALIGNMENT: Mild dextroconvex curvature and mild kyphosis of the thoracic spine without significant listhesis. No traumatic malalignment. BONES: Chronic mild anterior wedging of the T8 vertebral body. Remaining vertebral body heights are maintained. No evidence of acute fracture. Osseous structures are diffusely demineralized. DISCS: Multilevel disc space narrowing, which is notably moderate with vacuum disc phenomena from the T5-T6 through the T8-T9 levels. DEGENERATIVE CHANGES: Overall mild multilevel degenerative changes. SPINAL CANAL/NEUROFORAMEN: No significant osseous spinal canal stenosis or neuroforaminal narrowing. SOFT TISSUES: Visualized soft tissues are normal. OTHER: Partially imaged assessed on this examination and better evaluated on concurrently reported chest CT. This is associated with a suspected small loculated left pleural effusion/hemothorax. Partially imaged calcified pleural plaque, left greater than right. Atelectasis of the lung bases. Mild calcific atherosclerosis of the thoracic aorta. LUMBAR SPINE: ALIGNMENT: Mild levoconvex curvature of the lumbar spine without significant listhesis. No traumatic malalignment. BONES: Vertebral body heights are maintained without evidence of acute fracture. Osseous structures are diffusely demineralized. DISCS: Multilevel disc space narrowing, which is notably severe with vacuum disc phenomena at the L4-L5 and L5-S1 levels. DEGENERATIVE CHANGES: Overall moderate multilevel degenerative change, characterized by varying degrees of posterior disc bulges, ligamentum flavum hypertrophy, and facet arthropathy. SPINAL CANAL/NEUROFORAMEN: Multilevel spinal canal stenoses that is mild at the L1-L2 level, ixnr-ez-cluliwqr at the L2-L3 and L3-L4 levels, and czdzyncm-sk-hyrvhi at the L4-L5 level secondary to posterior disc bulges and ligamentum flavum hypertrophy. High-grade neuroforaminal narrowing at the bilateral L4-L5 level and moderate left greater than right neuroforaminal narrowing at the L5-S1 level. SOFT TISSUES: Visualized soft tissues are normal. OTHER: Mild calcific atherosclerosis of the abdominal aorta and branches. Hypodensities of the right kidney, which favor cysts. Mild degenerative changes of the sacroiliac joints. Procedure Note Micheal Hurd MD - 03/14/2023 PROCEDURE: CT HEAD WO CONTRAST, CT CERVICAL SPINE WO CONTRAST, CTLUMBAR SPINE WO CONTRAST, CT THORACIC SPINE WO CONTRAST, DATE/TIME OF EXAM: 03/14/2023 7:50 PM, LOCATION: [facility] INDICATION: W19.XXXA: Fall, initial encounter S22.49XA: Closed fracture of multiple ribs, unspecified laterality,initial encounter ADDITIONAL CLINICAL INFORMATION: Ordering Provider Reason For Exam: Trauma. EXAMINATION: CT scan of the head and CT scan of the cervical, thoracic, and lumbarspine without intravenous contrast TECHNIQUE: CT of the head and cervical spine was performed without intravenous contrast according to standard protocol. CT dose reduction technique was used, including Automated Exposure Control. Reformatted axial, sagittal, and coronal images of the thoracic and lumbar spine were obtained by the technologist from a concurrently performed chest, abdomen, and pelvis CT and sent to the workstation for review. COMPARISON: No prior similar studies are available for comparison. FINDINGS: HEAD: Streak/hardening artifact from patient's dental amalgam limitsassessment of the posterior fossa. Within this limitation, the following assessmentis made: BRAIN PARENCHYMA: No acute hemorrhage, large vascular territory infarct,or mass effect. Scattered white matter hypodensities, which are nonspecific but likely represents the sequela of chronic microangiopathic change.Mild global parenchymal volume loss, which is commensurate for age. VENTRICLES/EXTRA-AXIAL SPACES: No ventriculomegaly or extra-axial collection. Basal cisterns are patent. EXTRACRANIAL STRUCTURES: Normal bones and soft tissues. Left maxillary sinus floor with a small mucosal retention cyst versus polyp. Remaining paranasal sinuses are clear. Hypoplastic mastoid air cells are clear. Bilateral lens replacement; otherwise, orbits are unremarkable. Mild calcific atherosclerosis of the carotid siphons. CERVICAL SPINE: ALIGNMENT: Mild levoconvex curvature of the cervical spine with mildgrade 1 anterolisthesis of C4 on C5. No traumatic malalignment. ATLANTOAXIAL JOINT: The dens is intact, the lateral masses of C1 are normally aligned, and the atlantodental interval is normal. Mild degenerative changes at the C1-C2 level. BONES: Vertebral body heights are maintained without evidence of acute fracture. Osseous fusion of C5-C6 vertebral bodies. Osseous structuresare diffusely demineralized. DISCS: Multilevel disc space narrowing with notable obliteration of the disc space at the C5-C6 level secondary to fusion of the vertebralbodies and naingfof-xk-vdcriy disc space narrowing and vacuum disc phenomena at the C6-C7 level. DEGENERATIVE CHANGES: Overall moderate multilevel degenerative changes, characterized by varying degrees of posterior disc bulges/osteophyte complexes, facet arthropathy, and uncovertebral joint hypertrophy. SPINAL CANAL/NEUROFORAMEN: Ydvf-nl-nmziritg spinal canal stenosis at the C5-6 level secondary to a posterior disc bulge complex. Multilevel neuroforaminal narrowing that is at the right for, severe at the right C4-C5, moderate at the left C5-C6, and severe at the left C6-G9yrkokptdc to uncovertebral joint hypertrophy. SOFT TISSUES: No prevertebral soft tissue swelling. Visualized neck soft tissues are normal. OTHER: Mild scarring of the lung apices. Mild calcific atherosclerosisof the left carotid bulb. THORACIC SPINE: ALIGNMENT: Mild dextroconvex curvature and mild kyphosis of the thoracic spine without significant listhesis. No traumatic malalignment. BONES: Chronic mild anterior wedging of the T8 vertebral body. Remaining vertebral body heights are maintained. No evidence of acute fracture. Osseous structures are diffusely demineralized. DISCS: Multilevel disc space narrowing, which is notably moderate with vacuum disc phenomena from the T5-T6 through the T8-T9 levels. DEGENERATIVE CHANGES: Overall mild multilevel degenerative changes. SPINAL CANAL/NEUROFORAMEN: No significant osseous spinal canal stenosisor neuroforaminal narrowing. SOFT TISSUES: Visualized soft tissues are normal. OTHER: Partially imaged assessed on this examination and betterevaluated on concurrently reported chest CT. This is associated with a suspected small loculated left pleural effusion/hemothorax. Partially imaged calcified pleural plaque, left greater than right. Atelectasis of thelung bases. Mild calcific atherosclerosis of the thoracic aorta. LUMBAR SPINE: ALIGNMENT: Mild levoconvex curvature of the lumbar spine without significant listhesis. No traumatic malalignment. BONES: Vertebral body heights are maintained without evidence of acute fracture. Osseous structures are diffusely demineralized. DISCS: Multilevel disc space narrowing, which is notably severe withvacuum disc phenomena at the L4-L5 and L5-S1 levels. DEGENERATIVE CHANGES: Overall moderate multilevel degenerative change, characterized by varying degrees of posterior disc bulges, ligamentum flavum hypertrophy, and facet arthropathy. SPINAL CANAL/NEUROFORAMEN: Multilevel spinal canal stenoses that is mildat the L1-L2 level, whqr-ws-kvukgsay at the L2-L3 and L3-L4 levels, and arridgej-nd-gywlhd at the L4-L5 level secondary to posterior disc bulges and ligamentum flavum hypertrophy. High-grade neuroforaminal narrowingat the bilateral L4-L5 level and moderate left greater than right neuroforaminal narrowing at the L5-S1 level. SOFT TISSUES: Visualized soft tissues are normal. OTHER: Mild calcific atherosclerosis of the abdominal aorta andbranches. Hypodensities of the right kidney, which favor cysts. Mild degenerative changes of the sacroiliac joints. IMPRESSION: 1.No acute intracranial abnormality. 2.No acute fracture or traumatic malalignment of the cervical, thoracic,or lumbar spine. 3.Please refer to concurrently reported chest, abdomen, and pelvis CTfor description of additional nonspine-related abnormalities. > Interpreting Provider: Micheal Hurd MD, PhD on 03/14/2023 10:26 PM Yash Funes MD CT ORDERABLES * CT THORACIC SPINE WO CONTRAST (03/14/2023 7:48 PM CDT) Anatomical Region Laterality Modality Spine Computed Tomogra phy 03/14/2023 10:0 1 PM CDT Impressions 03/14/2023 10:26 PM CDT IMPRESSION: 1.No acute intracranial abnormality. 2.No acute fracture or traumatic malalignment of the cervical, thoracic, or lumbar spine. 3.Please refer to concurrently reported chest, abdomen, and pelvis CT for description of additional nonspine-related abnormalities. > Interpreting Provider: Micheal Hurd MD, PhD on 03/14/2023 10:26 PM Narrative 03/14/2023 10:26 PM CDT PROCEDURE: CT HEAD WO CONTRAST, CT CERVICAL SPINE WO CONTRAST, CT LUMBAR SPINE WO CONTRAST, CT THORACIC SPINE WO CONTRAST, DATE/TIME OF EXAM: 03/14/2023 7:50 PM, LOCATION: [facility] INDICATION: W19.XXXA: Fall, initial encounter S22.49XA: Closed fracture of multiple ribs, unspecified laterality, initial encounter ADDITIONAL CLINICAL INFORMATION: Ordering Provider Reason For Exam: Trauma. EXAMINATION: CT scan of the head and CT scan of the cervical, thoracic, and lumbar spine without intravenous contrast TECHNIQUE: CT of the head and cervical spine was performed without intravenous contrast according to standard protocol. CT dose reduction technique was used, including Automated Exposure Control. Reformatted axial, sagittal, and coronal images of the thoracic and lumbar spine were obtained by the technologist from a concurrently performed chest, abdomen, and pelvis CT and sent to the workstation for review. COMPARISON: No prior similar studies are available for comparison. FINDINGS: HEAD: Streak/hardening artifact from patient's dental amalgam limits assessment of the posterior fossa. Within this limitation, the following assessment is made: BRAIN PARENCHYMA: No acute hemorrhage, large vascular territory infarct, or mass effect. Scattered white matter hypodensities, which are nonspecific but likely represents the sequela of chronic microangiopathic change. Mild global parenchymal volume loss, which is commensurate for age. VENTRICLES/EXTRA-AXIAL SPACES: No ventriculomegaly or extra-axial collection. Basal cisterns are patent. EXTRACRANIAL STRUCTURES: Normal bones and soft tissues. Left maxillary sinus floor with a small mucosal retention cyst versus polyp. Remaining paranasal sinuses are clear. Hypoplastic mastoid air cells are clear. Bilateral lens replacement; otherwise, orbits are unremarkable. Mild calcific atherosclerosis of the carotid siphons. CERVICAL SPINE: ALIGNMENT: Mild levoconvex curvature of the cervical spine with mild grade 1 anterolisthesis of C4 on C5. No traumatic malalignment. ATLANTOAXIAL JOINT: The dens is intact, the lateral masses of C1 are normally aligned, and the atlantodental interval is normal. Mild degenerative changes at the C1-C2 level. BONES: Vertebral body heights are maintained without evidence of acute fracture. Osseous fusion of C5-C6 vertebral bodies. Osseous structures are diffusely demineralized. DISCS: Multilevel disc space narrowing with notable obliteration of the disc space at the C5-C6 level secondary to fusion of the vertebral bodies and lbtkelyo-wv-hsbmdu disc space narrowing and vacuum disc phenomena at the C6-C7 level. DEGENERATIVE CHANGES: Overall moderate multilevel degenerative changes, characterized by varying degrees of posterior disc bulges/osteophyte complexes, facet arthropathy, and uncovertebral joint hypertrophy. SPINAL CANAL/NEUROFORAMEN: Vgjw-sp-rjeademd spinal canal stenosis at the C5-6 level secondary to a posterior disc bulge complex. Multilevel neuroforaminal narrowing that is at the right for, severe at the right C4-C5, moderate at the left C5-C6, and severe at the left C6-C7 secondary to uncovertebral joint hypertrophy. SOFT TISSUES: No prevertebral soft tissue swelling. Visualized neck soft tissues are normal. OTHER: Mild scarring of the lung apices. Mild calcific atherosclerosis of the left carotid bulb. THORACIC SPINE: ALIGNMENT: Mild dextroconvex curvature and mild kyphosis of the thoracic spine without significant listhesis. No traumatic malalignment. BONES: Chronic mild anterior wedging of the T8 vertebral body. Remaining vertebral body heights are maintained. No evidence of acute fracture. Osseous structures are diffusely demineralized. DISCS: Multilevel disc space narrowing, which is notably moderate with vacuum disc phenomena from the T5-T6 through the T8-T9 levels. DEGENERATIVE CHANGES: Overall mild multilevel degenerative changes. SPINAL CANAL/NEUROFORAMEN: No significant osseous spinal canal stenosis or neuroforaminal narrowing. SOFT TISSUES: Visualized soft tissues are normal. OTHER: Partially imaged assessed on this examination and better evaluated on concurrently reported chest CT. This is associated with a suspected small loculated left pleural effusion/hemothorax. Partially imaged calcified pleural plaque, left greater than right. Atelectasis of the lung bases. Mild calcific atherosclerosis of the thoracic aorta. LUMBAR SPINE: ALIGNMENT: Mild levoconvex curvature of the lumbar spine without significant listhesis. No traumatic malalignment. BONES: Vertebral body heights are maintained without evidence of acute fracture. Osseous structures are diffusely demineralized. DISCS: Multilevel disc space narrowing, which is notably severe with vacuum disc phenomena at the L4-L5 and L5-S1 levels. DEGENERATIVE CHANGES: Overall moderate multilevel degenerative change, characterized by varying degrees of posterior disc bulges, ligamentum flavum hypertrophy, and facet arthropathy. SPINAL CANAL/NEUROFORAMEN: Multilevel spinal canal stenoses that is mild at the L1-L2 level, swrn-vr-scihljoy at the L2-L3 and L3-L4 levels, and nrbvrarv-xz-vwnlkt at the L4-L5 level secondary to posterior disc bulges and ligamentum flavum hypertrophy. High-grade neuroforaminal narrowing at the bilateral L4-L5 level and moderate left greater than right neuroforaminal narrowing at the L5-S1 level. SOFT TISSUES: Visualized soft tissues are normal. OTHER: Mild calcific atherosclerosis of the abdominal aorta and branches. Hypodensities of the right kidney, which favor cysts. Mild degenerative changes of the sacroiliac joints. Procedure Note Micheal Hurd MD - 03/14/2023 PROCEDURE: CT HEAD WO CONTRAST, CT CERVICAL SPINE WO CONTRAST, CTLUMBAR SPINE WO CONTRAST, CT THORACIC SPINE WO CONTRAST, DATE/TIME OF EXAM: 03/14/2023 7:50 PM, LOCATION: [facility] INDICATION: W19.XXXA: Fall, initial encounter S22.49XA: Closed fracture of multiple ribs, unspecified laterality,initial encounter ADDITIONAL CLINICAL INFORMATION: Ordering Provider Reason For Exam: Trauma. EXAMINATION: CT scan of the head and CT scan of the cervical, thoracic, and lumbarspine without intravenous contrast TECHNIQUE: CT of the head and cervical spine was performed without intravenous contrast according to standard protocol. CT dose reduction technique was used, including Automated Exposure Control. Reformatted axial, sagittal, and coronal images of the thoracic and lumbar spine were obtained by the technologist from a concurrently performed chest, abdomen, and pelvis CT and sent to the workstation for review. COMPARISON: No prior similar studies are available for comparison. FINDINGS: HEAD: Streak/hardening artifact from patient's dental amalgam limitsassessment of the posterior fossa. Within this limitation, the following assessmentis made: BRAIN PARENCHYMA: No acute hemorrhage, large vascular territory infarct,or mass effect. Scattered white matter hypodensities, which are nonspecific but likely represents the sequela of chronic microangiopathic change.Mild global parenchymal volume loss, which is commensurate for age. VENTRICLES/EXTRA-AXIAL SPACES: No ventriculomegaly or extra-axial collection. Basal cisterns are patent. EXTRACRANIAL STRUCTURES: Normal bones and soft tissues. Left maxillary sinus floor with a small mucosal retention cyst versus polyp. Remaining paranasal sinuses are clear. Hypoplastic mastoid air cells are clear. Bilateral lens replacement; otherwise, orbits are unremarkable. Mild calcific atherosclerosis of the carotid siphons. CERVICAL SPINE: ALIGNMENT: Mild levoconvex curvature of the cervical spine with mildgrade 1 anterolisthesis of C4 on C5. No traumatic malalignment. ATLANTOAXIAL JOINT: The dens is intact, the lateral masses of C1 are normally aligned, and the atlantodental interval is normal. Mild degenerative changes at the C1-C2 level. BONES: Vertebral body heights are maintained without evidence of acute fracture. Osseous fusion of C5-C6 vertebral bodies. Osseous structuresare diffusely demineralized. DISCS: Multilevel disc space narrowing with notable obliteration of the disc space at the C5-C6 level secondary to fusion of the vertebralbodies and orbqfjoa-ot-toekun disc space narrowing and vacuum disc phenomena at the C6-C7 level. DEGENERATIVE CHANGES: Overall moderate multilevel degenerative changes, characterized by varying degrees of posterior disc bulges/osteophyte complexes, facet arthropathy, and uncovertebral joint hypertrophy. SPINAL CANAL/NEUROFORAMEN: Fsyp-iy-vkdemwjx spinal canal stenosis at the C5-6 level secondary to a posterior disc bulge complex. Multilevel neuroforaminal narrowing that is at the right for, severe at the right C4-C5, moderate at the left C5-C6, and severe at the left C6-F8lxgegkyop to uncovertebral joint hypertrophy. SOFT TISSUES: No prevertebral soft tissue swelling. Visualized neck soft tissues are normal. OTHER: Mild scarring of the lung apices. Mild calcific atherosclerosisof the left carotid bulb. THORACIC SPINE: ALIGNMENT: Mild dextroconvex curvature and mild kyphosis of the thoracic spine without significant listhesis. No traumatic malalignment. BONES: Chronic mild anterior wedging of the T8 vertebral body. Remaining vertebral body heights are maintained. No evidence of acute fracture. Osseous structures are diffusely demineralized. DISCS: Multilevel disc space narrowing, which is notably moderate with vacuum disc phenomena from the T5-T6 through the T8-T9 levels. DEGENERATIVE CHANGES: Overall mild multilevel degenerative changes. SPINAL CANAL/NEUROFORAMEN: No significant osseous spinal canal stenosisor neuroforaminal narrowing. SOFT TISSUES: Visualized soft tissues are normal. OTHER: Partially imaged assessed on this examination and betterevaluated on concurrently reported chest CT. This is associated with a suspected small loculated left pleural effusion/hemothorax. Partially imaged calcified pleural plaque, left greater than right. Atelectasis of thelung bases. Mild calcific atherosclerosis of the thoracic aorta. LUMBAR SPINE: ALIGNMENT: Mild levoconvex curvature of the lumbar spine without significant listhesis. No traumatic malalignment. BONES: Vertebral body heights are maintained without evidence of acute fracture. Osseous structures are diffusely demineralized. DISCS: Multilevel disc space narrowing, which is notably severe withvacuum disc phenomena at the L4-L5 and L5-S1 levels. DEGENERATIVE CHANGES: Overall moderate multilevel degenerative change, characterized by varying degrees of posterior disc bulges, ligamentum flavum hypertrophy, and facet arthropathy. SPINAL CANAL/NEUROFORAMEN: Multilevel spinal canal stenoses that is mildat the L1-L2 level, obye-xv-myiyzrkm at the L2-L3 and L3-L4 levels, and heliteuo-so-siqhfz at the L4-L5 level secondary to posterior disc bulges and ligamentum flavum hypertrophy. High-grade neuroforaminal narrowingat the bilateral L4-L5 level and moderate left greater than right neuroforaminal narrowing at the L5-S1 level. SOFT TISSUES: Visualized soft tissues are normal. OTHER: Mild calcific atherosclerosis of the abdominal aorta andbranches. Hypodensities of the right kidney, which favor cysts. Mild degenerative changes of the sacroiliac joints. IMPRESSION: 1.No acute intracranial abnormality. 2.No acute fracture or traumatic malalignment of the cervical, thoracic,or lumbar spine. 3.Please refer to concurrently reported chest, abdomen, and pelvis CTfor description of additional nonspine-related abnormalities. > Interpreting Provider: Micheal Hurd MD, PhD on 03/14/2023 10:26 PM Yash Funes MD CT ORDERABLES * CT CERVICAL SPINE WO CONTRAST (03/14/2023 7:48 PM CDT) Anatomical Region Laterality Modality Spine Computed Tomogra phy 03/14/2023 10:0 1 PM CDT Impressions 03/14/2023 10:26 PM CDT IMPRESSION: 1.No acute intracranial abnormality. 2.No acute fracture or traumatic malalignment of the cervical, thoracic, or lumbar spine. 3.Please refer to concurrently reported chest, abdomen, and pelvis CT for description of additional nonspine-related abnormalities. > Interpreting Provider: Micheal Hurd MD, PhD on 03/14/2023 10:26 PM Narrative 03/14/2023 10:26 PM CDT PROCEDURE: CT HEAD WO CONTRAST, CT CERVICAL SPINE WO CONTRAST, CT LUMBAR SPINE WO CONTRAST, CT THORACIC SPINE WO CONTRAST, DATE/TIME OF EXAM: 03/14/2023 7:50 PM, LOCATION: [facility] INDICATION: W19.XXXA: Fall, initial encounter S22.49XA: Closed fracture of multiple ribs, unspecified laterality, initial encounter ADDITIONAL CLINICAL INFORMATION: Ordering Provider Reason For Exam: Trauma. EXAMINATION: CT scan of the head and CT scan of the cervical, thoracic, and lumbar spine without intravenous contrast TECHNIQUE: CT of the head and cervical spine was performed without intravenous contrast according to standard protocol. CT dose reduction technique was used, including Automated Exposure Control. Reformatted axial, sagittal, and coronal images of the thoracic and lumbar spine were obtained by the technologist from a concurrently performed chest, abdomen, and pelvis CT and sent to the workstation for review. COMPARISON: No prior similar studies are available for comparison. FINDINGS: HEAD: Streak/hardening artifact from patient's dental amalgam limits assessment of the posterior fossa. Within this limitation, the following assessment is made: BRAIN PARENCHYMA: No acute hemorrhage, large vascular territory infarct, or mass effect. Scattered white matter hypodensities, which are nonspecific but likely represents the sequela of chronic microangiopathic change. Mild global parenchymal volume loss, which is commensurate for age. VENTRICLES/EXTRA-AXIAL SPACES: No ventriculomegaly or extra-axial collection. Basal cisterns are patent. EXTRACRANIAL STRUCTURES: Normal bones and soft tissues. Left maxillary sinus floor with a small mucosal retention cyst versus polyp. Remaining paranasal sinuses are clear. Hypoplastic mastoid air cells are clear. Bilateral lens replacement; otherwise, orbits are unremarkable. Mild calcific atherosclerosis of the carotid siphons. CERVICAL SPINE: ALIGNMENT: Mild levoconvex curvature of the cervical spine with mild grade 1 anterolisthesis of C4 on C5. No traumatic malalignment. ATLANTOAXIAL JOINT: The dens is intact, the lateral masses of C1 are normally aligned, and the atlantodental interval is normal. Mild degenerative changes at the C1-C2 level. BONES: Vertebral body heights are maintained without evidence of acute fracture. Osseous fusion of C5-C6 vertebral bodies. Osseous structures are diffusely demineralized. DISCS: Multilevel disc space narrowing with notable obliteration of the disc space at the C5-C6 level secondary to fusion of the vertebral bodies and utybnncl-mk-mzyfmb disc space narrowing and vacuum disc phenomena at the C6-C7 level. DEGENERATIVE CHANGES: Overall moderate multilevel degenerative changes, characterized by varying degrees of posterior disc bulges/osteophyte complexes, facet arthropathy, and uncovertebral joint hypertrophy. SPINAL CANAL/NEUROFORAMEN: Egad-ps-xwjaijgh spinal canal stenosis at the C5-6 level secondary to a posterior disc bulge complex. Multilevel neuroforaminal narrowing that is at the right for, severe at the right C4-C5, moderate at the left C5-C6, and severe at the left C6-C7 secondary to uncovertebral joint hypertrophy. SOFT TISSUES: No prevertebral soft tissue swelling. Visualized neck soft tissues are normal. OTHER: Mild scarring of the lung apices. Mild calcific atherosclerosis of the left carotid bulb. THORACIC SPINE: ALIGNMENT: Mild dextroconvex curvature and mild kyphosis of the thoracic spine without significant listhesis. No traumatic malalignment. BONES: Chronic mild anterior wedging of the T8 vertebral body. Remaining vertebral body heights are maintained. No evidence of acute fracture. Osseous structures are diffusely demineralized. DISCS: Multilevel disc space narrowing, which is notably moderate with vacuum disc phenomena from the T5-T6 through the T8-T9 levels. DEGENERATIVE CHANGES: Overall mild multilevel degenerative changes. SPINAL CANAL/NEUROFORAMEN: No significant osseous spinal canal stenosis or neuroforaminal narrowing. SOFT TISSUES: Visualized soft tissues are normal. OTHER: Partially imaged assessed on this examination and better evaluated on concurrently reported chest CT. This is associated with a suspected small loculated left pleural effusion/hemothorax. Partially imaged calcified pleural plaque, left greater than right. Atelectasis of the lung bases. Mild calcific atherosclerosis of the thoracic aorta. LUMBAR SPINE: ALIGNMENT: Mild levoconvex curvature of the lumbar spine without significant listhesis. No traumatic malalignment. BONES: Vertebral body heights are maintained without evidence of acute fracture. Osseous structures are diffusely demineralized. DISCS: Multilevel disc space narrowing, which is notably severe with vacuum disc phenomena at the L4-L5 and L5-S1 levels. DEGENERATIVE CHANGES: Overall moderate multilevel degenerative change, characterized by varying degrees of posterior disc bulges, ligamentum flavum hypertrophy, and facet arthropathy. SPINAL CANAL/NEUROFORAMEN: Multilevel spinal canal stenoses that is mild at the L1-L2 level, rphr-xn-iomvgixw at the L2-L3 and L3-L4 levels, and xqvnaxlf-oe-ejqnet at the L4-L5 level secondary to posterior disc bulges and ligamentum flavum hypertrophy. High-grade neuroforaminal narrowing at the bilateral L4-L5 level and moderate left greater than right neuroforaminal narrowing at the L5-S1 level. SOFT TISSUES: Visualized soft tissues are normal. OTHER: Mild calcific atherosclerosis of the abdominal aorta and branches. Hypodensities of the right kidney, which favor cysts. Mild degenerative changes of the sacroiliac joints. Procedure Note Micheal Hurd MD - 03/14/2023 PROCEDURE: CT HEAD WO CONTRAST, CT CERVICAL SPINE WO CONTRAST, CTLUMBAR SPINE WO CONTRAST, CT THORACIC SPINE WO CONTRAST, DATE/TIME OF EXAM: 03/14/2023 7:50 PM, LOCATION: [facility] INDICATION: W19.XXXA: Fall, initial encounter S22.49XA: Closed fracture of multiple ribs, unspecified laterality,initial encounter ADDITIONAL CLINICAL INFORMATION: Ordering Provider Reason For Exam: Trauma. EXAMINATION: CT scan of the head and CT scan of the cervical, thoracic, and lumbarspine without intravenous contrast TECHNIQUE: CT of the head and cervical spine was performed without intravenous contrast according to standard protocol. CT dose reduction technique was used, including Automated Exposure Control. Reformatted axial, sagittal, and coronal images of the thoracic and lumbar spine were obtained by the technologist from a concurrently performed chest, abdomen, and pelvis CT and sent to the workstation for review. COMPARISON: No prior similar studies are available for comparison. FINDINGS: HEAD: Streak/hardening artifact from patient's dental amalgam limitsassessment of the posterior fossa. Within this limitation, the following assessmentis made: BRAIN PARENCHYMA: No acute hemorrhage, large vascular territory infarct,or mass effect. Scattered white matter hypodensities, which are nonspecific but likely represents the sequela of chronic microangiopathic change.Mild global parenchymal volume loss, which is commensurate for age. VENTRICLES/EXTRA-AXIAL SPACES: No ventriculomegaly or extra-axial collection. Basal cisterns are patent. EXTRACRANIAL STRUCTURES: Normal bones and soft tissues. Left maxillary sinus floor with a small mucosal retention cyst versus polyp. Remaining paranasal sinuses are clear. Hypoplastic mastoid air cells are clear. Bilateral lens replacement; otherwise, orbits are unremarkable. Mild calcific atherosclerosis of the carotid siphons. CERVICAL SPINE: ALIGNMENT: Mild levoconvex curvature of the cervical spine with mildgrade 1 anterolisthesis of C4 on C5. No traumatic malalignment. ATLANTOAXIAL JOINT: The dens is intact, the lateral masses of C1 are normally aligned, and the atlantodental interval is normal. Mild degenerative changes at the C1-C2 level. BONES: Vertebral body heights are maintained without evidence of acute fracture. Osseous fusion of C5-C6 vertebral bodies. Osseous structuresare diffusely demineralized. DISCS: Multilevel disc space narrowing with notable obliteration of the disc space at the C5-C6 level secondary to fusion of the vertebralbodies and kiodkvdj-os-zdcamx disc space narrowing and vacuum disc phenomena at the C6-C7 level. DEGENERATIVE CHANGES: Overall moderate multilevel degenerative changes, characterized by varying degrees of posterior disc bulges/osteophyte complexes, facet arthropathy, and uncovertebral joint hypertrophy. SPINAL CANAL/NEUROFORAMEN: Zuzc-zw-jnpgptoe spinal canal stenosis at the C5-6 level secondary to a posterior disc bulge complex. Multilevel neuroforaminal narrowing that is at the right for, severe at the right C4-C5, moderate at the left C5-C6, and severe at the left C6-F0qezrteshm to uncovertebral joint hypertrophy. SOFT TISSUES: No prevertebral soft tissue swelling. Visualized neck soft tissues are normal. OTHER: Mild scarring of the lung apices. Mild calcific atherosclerosisof the left carotid bulb. THORACIC SPINE: ALIGNMENT: Mild dextroconvex curvature and mild kyphosis of the thoracic spine without significant listhesis. No traumatic malalignment. BONES: Chronic mild anterior wedging of the T8 vertebral body. Remaining vertebral body heights are maintained. No evidence of acute fracture. Osseous structures are diffusely demineralized. DISCS: Multilevel disc space narrowing, which is notably moderate with vacuum disc phenomena from the T5-T6 through the T8-T9 levels. DEGENERATIVE CHANGES: Overall mild multilevel degenerative changes. SPINAL CANAL/NEUROFORAMEN: No significant osseous spinal canal stenosisor neuroforaminal narrowing. SOFT TISSUES: Visualized soft tissues are normal. OTHER: Partially imaged assessed on this examination and betterevaluated on concurrently reported chest CT. This is associated with a suspected small loculated left pleural effusion/hemothorax. Partially imaged calcified pleural plaque, left greater than right. Atelectasis of thelung bases. Mild calcific atherosclerosis of the thoracic aorta. LUMBAR SPINE: ALIGNMENT: Mild levoconvex curvature of the lumbar spine without significant listhesis. No traumatic malalignment. BONES: Vertebral body heights are maintained without evidence of acute fracture. Osseous structures are diffusely demineralized. DISCS: Multilevel disc space narrowing, which is notably severe withvacuum disc phenomena at the L4-L5 and L5-S1 levels. DEGENERATIVE CHANGES: Overall moderate multilevel degenerative change, characterized by varying degrees of posterior disc bulges, ligamentum flavum hypertrophy, and facet arthropathy. SPINAL CANAL/NEUROFORAMEN: Multilevel spinal canal stenoses that is mildat the L1-L2 level, fjab-vh-cxdtbvuq at the L2-L3 and L3-L4 levels, and woxnwdfw-ok-wvvhzy at the L4-L5 level secondary to posterior disc bulges and ligamentum flavum hypertrophy. High-grade neuroforaminal narrowingat the bilateral L4-L5 level and moderate left greater than right neuroforaminal narrowing at the L5-S1 level. SOFT TISSUES: Visualized soft tissues are normal. OTHER: Mild calcific atherosclerosis of the abdominal aorta andbranches. Hypodensities of the right kidney, which favor cysts. Mild degenerative changes of the sacroiliac joints. IMPRESSION: 1.No acute intracranial abnormality. 2.No acute fracture or traumatic malalignment of the cervical, thoracic,or lumbar spine. 3.Please refer to concurrently reported chest, abdomen, and pelvis CTfor description of additional nonspine-related abnormalities. > Interpreting Provider: Micheal Hurd MD, PhD on 03/14/2023 10:26 PM [address] Funes MD CT ORDERABLES * XR PELVIS 1 OR 2VW (03/14/2023 7:39 PM CDT) Anatomical Region Laterality Modality Pelvis Radiographic Mandy ging 03/14/2023 9:04 PM CDT Impressions 03/15/2023 11:41 AM CDT IMPRESSION: No acute fracture identified. Report dictated by Ida Fry MD (residential care officer). I, JAYDON CHAIREZ MD have personally reviewed and interpreted this examination/study. > Interpreting Provider: JAYDON CHAIREZ MD on 03/15/2023 11:41 AM Narrative 03/15/2023 11:41 AM CDT PROCEDURE: XR PELVIS 1 OR 2VW, DATE/TIME OF EXAM: 03/14/2023 7:39 PM, LOCATION [facility] INDICATION: Trauma Fracture suspected ADDITIONAL CLINICAL INFORMATION: Ordering Provider Reason For Exam: Technologist Note: Additional: COMPARISON: None. FINDINGS: No acute fracture is identified. The femoral heads appear well-seated within their respective acetabula. The pubic symphysis is intact. Bone density and texture are normal. The sacroiliac joints are normal. Bladder is partially opacified with contrast. A few surgical clips overlies the right inguinal soft tissue. Procedure Note Jaydon Chairez MD - 03/15/2023 PROCEDURE: XR PELVIS 1 OR 2VW, DATE/TIME OF EXAM: 03/14/2023 7:39 PM, LOCATION [facility] INDICATION: Trauma Fracture suspected ADDITIONAL CLINICAL INFORMATION: Ordering Provider Reason For Exam: Technologist Note: Additional: COMPARISON: None. FINDINGS: No acute fracture is identified. The femoral heads appear well-seated within their respective acetabula. The pubic symphysis is intact. Bone density and texture are normal. The sacroiliac joints are normal. Bladder is partially opacified with contrast. A few surgical clipsoverlies the right inguinal soft tissue. IMPRESSION: No acute fracture identified. Report dictated by Ida Fry MD (residential care officer). I, JAYDON CHAIREZ MD have personally reviewed and interpreted this examination/study. > Interpreting Provider: JAYDON CHAIREZ MD on 03/15/2023 11:41 AM Yash Mendoza Carolyn DO DIAGNOSTIC IMAGING O RDERABLES * TENZIN DIRECT C3 (03/14/2023 7:22 PM CDT) Anti-C3 Tenzin POS 03/15/2023 4:35 AM CDT [facility] Blood Bank BLOOD SPECIMEN / Unknown Venipuncture / Unknown 03/14/2023 7:22 PM CDT 03/14/2023 7:59 PM CDT Yash Mendoza Carolyn [facility] - BLOOD BANK ORD ERABLES [facility] [address] [place] [id number], [facility] [phone] * TENZIN DIRECT IGG (03/14/2023 7:22 PM CDT) IgG Tenzin POS 03/15/2023 4:29 AM CDT [facility] Blood Bank BLOOD SPECIMEN / Unknown Venipuncture / Unknown 03/14/2023 7:22 PM CDT 03/14/2023 7:59 PM CDT Yash Mendoza Carolyn [facility] - BLOOD BANK ORD ERABLES [facility] [address] [place] [address], [facility] [phone] * ELUTION (03/14/2023 7:22 PM CDT) Elution POS, WARM AUTOANTIBODY 03/15/2023 4:36 AM CDT [facility] Blood Bank BLOOD SPECIMEN / Unknown Venipuncture / Unknown 03/14/2023 7:22 PM CDT 03/14/2023 7:59 PM CDT Yash Loen LAB - BLOOD BANK ORD ERABLES [facility] [address] [place] [address], [place] [phone] * TYPE + SCREEN PANEL (03/14/2023 7:22 PM CDT) Antibody Screen POS 8:50 PM CDT [facility] ABO Rh O POS 03/14/2023 8:50 PM CDT [facility] Blood Bank BLOOD SPECIMEN / Unknown Venipuncture / Unknown 03/14/2023 7:22 PM CDT 03/14/2023 7:59 PM CDT [facility] ORD ERABLES [facility] [address] [place] [address], [place] [phone] * TENZIN DIRECT (03/14/2023 7:22 PM CDT) Direct Tenzin (ODELL) POS 03/14/2023 10:17 PM CDT [facility] Blood Bank BLOOD SPECIMEN / Unknown Venipuncture / Unknown 03/14/2023 7:22 PM CDT 03/14/2023 7:59 PM CDT [facility] - [facility] ORD ERABLES [facility] [address] [place] [address], [place] [phone] * ANTIBODY IDENTIFICATION (03/14/2023 7:22 PM CDT) Antibody 1 POS, Cold Auto Anti-I 03/15/2023 4:37 AM CDT [facility] Blood Bank BLOOD SPECIMEN / Unknown Venipuncture / Unknown 03/14/2023 7:22 PM CDT 03/14/2023 7:59 PM CDT Yash Mendoza Carolyn [facility] - BLOOD BANK ORD ERABLES [facility] [address] [place] [address], [facility] [phone] * (ABNORMAL) COMPREHENSIVE METABOLIC PANEL (03/14/2023 7:22 PM CDT) Only the most recent of2 resultswithin the time period is included. BUN 28(H) 7 - 26 mg/dL 03/14/2023 8:00 PM [facility] Creatinine 1.61(H) 0.71 - 1.16 mg/dL 03/14/2023 8:00 PM [facility] Sodium 140 136 - 145 mmol/L 03/14/2023 8:00 PM [facility] Potassium 4.9(H) 3.5 - 4.5 mmol/L 03/14/2023 8:00 PM [facility] Chloride 107 98 - 107 mmol/L 03/14/2023 8:00 PM [facility] CO2 23 22 - 29 mmol/L 03/14/2023 8:00 PM [facility] Glucose 134(H) 70 - 115 mg/dL 03/14/2023 8:00 PM [facility] Calcium 9.2 8.4 - 10.2 mg/dL 03/14/2023 8:00 PM [facility] Protein Total 6.5 6.0 - 8.3 g/dL 03/14/2023 8:00 PM [facility] Albumin 3.6 3.4 - 5.0 g/dL 03/14/2023 8:00 PM [facility] Bilirubin Total 0.5 0.2 - 1.2 mg/dL 03/14/2023 8:00 PM [facility] Alkaline Phosphatase 61 40 - 150 U/L 03/14/2023 8:00 PM [facility] ALT 30 5 - 55 U/L 03/14/2023 8:00 PM [facility] AST 34 5 - 34 U/L 03/14/2023 8:00 PM [facility] Anion Gap 15 8 - 18 03/14/2023 8:00 PM [facility] BUN/Creatinine Ratio 17 7 - 23 03/14/2023 8:00 PM [facility] Osmolality Calculated 297 270 - 300 mOsm/kg 03/14/2023 8:00 PM [facility] Albumin/Globulin Ratio 1.2 1.1 - 2.3 03/14/2023 8:00 PM [facility] eGFR by CKD-EPI 41(L) >=90 mL/min/1.7 3 m2 03/14/2023 8:00 PM [facility] Blood BLOOD SPECIMEN / Unknown Venipuncture / Unknown 03/14/2023 7:22 PM CDT 03/14/2023 7:29 PM CDT Yash Leon DO LAB - CHEMISTRY ORDE [facility] [address] [place] [address], [facility] [phone] * XR KNEE 3 VW RIGHT [[id number]] (06/10/2013 10:16 AM CDT) Only the most recent of2 resultswithin the time period is included. Anatomical Region Laterality Modality Lower Extremity Radiographic Mandy ging Narrative 06/10/2013 10:17 AM CDT RT Echo(R) 06/10/2013 10:17 AM See Chart For Xray Report Procedure Note Solange Holder, RT(R) - 06/10/2013 10:17 AM CDT See Chart For Xray Report Adonis Estrada MD DIAGNOSTIC IMAGING O RDERABLES * (ABNORMAL) PT-INR (06/14/2012 6:00 AM CDT) Only the most recent of5 resultswithin the time period is included. PT 22.7(H) 9.4 - 11.2 seconds [facility] INR 2.1(H) SEE BELOW [facility] Comment: 0.9-1.1 Normal 2.0-3.0 Conventional 2.5-3.5 Intensive Blood specimen (specimen) BLOOD SPECIMEN / Unknown 06/14/2012 6:00 AM CDT 06/14/2012 6:07 AM CDT Adonis Estrada MD LAB - COAGULATION OR DERABLES Performing Organization Address [facility] Co de Phone Number [facility] [id number] [place] [phone] * (ABNORMAL) HGB HCT PANEL (06/12/2012 3:15 AM CDT) Only the most recent of2 resultswithin the time period is included. Hemoglobin 8.6(L) 12.0 - 17.6 gm/dL [facility] Hematocrit 25.3(L) 35.2 - 51.7 % [facility] Blood specimen (specimen) BLOOD SPECIMEN / Unknown 06/12/2012 3:15 AM CDT 06/12/2012 3:32 AM CDT Adonis Estrada MD LAB - HEMATOLOGY ORD ERABLES Performing Organization Address [facility] de Phone Number [facility] [id number] [place] [phone] * CULTURE MSSA/MRSA (05/15/2012 12:52 PM CDT) Result [facility] Comment: Final NO growth S.aureus/NO growth S.aureus (MRSA) Miscellaneous samples (specimen) SPECIMEN FROM NASAL FOSSAE / Unknown 05/15/2012 12:52 PM CDT 05/15/2012 12:52 PM CDT Narrative [facility] - 05/16/2012 7:57 PM CDT Performed By [facility];[address] [place] [address];[place] [address] Adonis Estrada MD LAB - MICROBIOLOGY O RDERABLES Performing Organization Address [facility] Co de Phone Number [facility] [address] [place] [address] Care Teams Dining Room Captain Relationship Specialty Start Date End Date Kev Nelson MD PCP - General 07/02/12 Adonis Estrada MD Orthopedic Surgery 03/14/12
--- OUTSIDE RECORDS SUMMARY | 2024-12-08 15:24 | XMS_ITS ---
Author Organization [facility] Address [address] [place], [place] [id number] Care Team Providers Care Buttoner Name Role Phone SUNITHA MACIAS Unavailable [phone] Answer, Declined Unavailable Unavailable REASON FOR VISIT L G toenail coming off, painful Medications Medication SIG (Take, Route, Frequency, Duration) Notes Start Date End Date Status hydrALAZINE HCl Acti ve Aspirin 81 Active Ferrous Sulfate Acti ve Warfarin Sodium Acti ve Fenofibrate Active predniSONE Active Isosorbide Mononitrate ER Active Metoprolol Succinate Active Vital Signs Height 70 in 04/10/2024 Weight 185 lbs 04/10/2024 BMI 26.54 kg/m2 04/10/2024 Height-cm 177.8 cm 04/10/2024 Weight-kg 83.91 kg 04/10/2024 Encounters Encounter Location Date Provider Diagnosis [facility] [address] [place], [place] [id number] 04/10/2024 SUNITHA MACIAS 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 If the condition should worsen they should call the office. Plan Of Treatment Treatment Notes Assessment Notes Other I advised the patien t that no further treatment is necessary at this time. If the condition should worsen they should call the office. Progress Notes * Pippa ADORNOB:1935 ( 88 yo M)Acc No.[id number]:04/10/2024 Progress Notes Patient: Binu JOHN Provider: Traci Macias DPM :1935 A ge:88 Y S ex:Male Date:04/10/2024 Address:[address] [place], [place] [id number] Subjective: * Chief Complaints: * 1 . L G toenail coming off, painful. * HPI: H PI: New Complaint P atient presents for a new patient consultation. Patient complains of an issue to his left great toenail. He states he dropped something on it years ago and the nail came off. She states the nail grew back, but a week ago his toe swelled up, turned red and was painful. He states it felt like the nail was going to come off when he scheduled the appointment. He is currently not having any pain or problems with the nail. MA: sea. * ROS: G eneral / Constitutional: Patient denies c hills, fever. E ndocrine: Patient denies e xcessive thirst, frequent urination. ? C ardiovascular: Patient denies s hortness of breath, chest pain. S kin: Patient denies m ole changes. * Medical History: * Medications: T aking Warfarin Sodium , Taking Ferrous Sulfate , Taking Aspirin 81 , Taking hydrALAZINE HCl , Taking Isosorbide Mononitrate ER , Taking predniSONE , Taking Metoprolol Succinate , Taking Fenofibrate Objective: * Vitals: S hoe Size: 10.5, Wt: 185 lbs, Wt-k.91 kg, Ht: 70 in, Ht-cm: 177.8 cm, BMI: 26.54 Index, Body Surface Area: 2.03. * Examination: P hysical Examination: Gen: T he patient is awake, alert, well developed, well groomed and well nourished. They are in no apparent distress. . Musc: F oot structure is normal. No abnormalities noted. Muscle strength is 5/5 to all joints bilaterally. There is no pain on palpation. . Derm: S kin is warm and dry, with no rashes, good skin turgor and normal hair distribution. Nails are thick, discolored, and dystrophic with subungual debris. They are not painful to palpation - R1. Neuro: G rossly intact to light touch bilateral.. Vasc: D orsalis pedis and posterior tibial pulses 2+ bilaterally. No edema noted. Capillary fill time < 3 seconds to all digits. . Assessment: * Assessment: 1. F ungal infection of nail - B35.1 (Primary) 2 . P ain in left toe(s) - M79.675 Plan: * Treatment: * Billing Information: * Visit Code: 29267 Office Visit, New Pt., Level 3. 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 Patient complains of an issue to his left great toenail. He states he dropped something on it years ago and the nail came off. She states the nail grew back, but a week ago his toe swelled up, turned red and was painful. He states it felt like the nail was going to come off when he scheduled the appointment. He is currently not having any pain or problems with the nail. MA: sea Examination Category Sub-Category Detail Notes Category Not es Physical Examination Gen: The patient is awake, alert, well developed, well groomed and well nourished. They are in no apparent distress. Vasc: Dorsalis pedis and p osterior tibial pulses 2+ bilaterally. No edema noted. Capillary fill time < 3 seconds to all digits. Neuro: Grossly intact to li ght touch bilateral. Musc: Foot structure is no rmal. No abnormalities noted. Muscle strength is 5/5 to all joints bilaterally. There is no pain on palpation. Derm: Skin is warm and dry , with no rashes, good skin turgor and normal hair distribution. Nails are thick, discolored, and dystrophic with subungual debris. They are not painful to palpation - R1
--- OUTSIDE RECORDS SUMMARY | 2024-12-08 15:24 | XMS_ITS | Referral Summary ---
Author Organization [facility] Address [address] [place] [address] Care Team Providers Care Seals Engraver Name Role Phone Adonis Estrada MD Unavailable [phone] Kev Nelson MD Primary Care Provider [phone] Source Comments [facility],non-owned Affiliates and Associated Physician Practices is amultiple site organization consisting of ambulatory clinics and hospital sitesin [place], [place], [place] and [place]. This disclosure is being madepursuant to the Care Everywhere program and may not contain all information available regarding this patient. Last updated 18.[facility] Allergies Active Allergy Reactions Criticality Noted Date [...] Zoster Hzv Vacc Recombinant Inj Im 11/18/2021, Social History Tobacco Use Types Packs/Day Years [...] and heating? Not hard at all 03/14/2023 [facility] Occupational Stress Questionnaire Answer Date Recorded [...] place to sleep or slept in a fpc (including now)? No 03/14/2023 Sex and Gender [...] Mass Index 28.41 03/23/2023 12:20 PM CDT Functional Status Functional Status Response Date of Assess ment Is person deaf or have serious hearing difficult y? No 03/14/2023 Is person blind or have serious difficulty seein g? No 03/14/2023 Does person have serious dif ficulty walking/climbing stairs? No 03/14/2023 Does person have difficulty dressing/bathing? No 03/14/2023 Does person have difficulty doing errands alone? No 03/14/2023 Cognitive Status Response Date of Assessm ent Does person have difficulty concentrating/remembering/making decisions? 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
--- OUTSIDE RECORDS SUMMARY | 2024-12-08 15:24 | XMS_ITS | Referral Summary ---
Author Organization [facility] Address [facility] [place] [address] Care Team Providers Care Fitting Room Associate Name Role Phone Tre Hyde MD Primary Care Provider + KrishnaFransisco browning DO Unavailable Allergies Active Allergy Reactions Criticality Noted Date Comments Colesevelam Muscle pain Medium 09/15/2016 Rosuvastatin Muscle pain Medium 09/15/2016 Medications acetaminophen (TYLENOL) 325 mg tablet Take 2 tablets (650 mg total) by mouth every 4 (four) hours as needed 06/14/20 12 Active amoxicillin-clavulan ate (AUGMENTIN) 875-125 mg per tablet amoxicillin 875 mg-potassium clavulanate 125 mg tablet TAKE 1 TABLET BY MOUTH TWICE DAILY Active aspirin 81 mg enteric coated tablet Take 1 tablet (81 mg total) by mouth daily 05/26/20 13 Active benzonatate (TESSALON) 100 mg capsule Take 1 capsule (100 mg total) by mouth 3 (three) times a day as needed 06/14/20 12 Active dicyclomine (BENTYL) 20 mg tablet Take 1 tablet (20 mg total) by mouth 11/09/19 21 Active ezetimibe (ZETIA) 10 mg tablet Take 1 tablet (10 mg total) by mouth nightly Active fenofibrate nanocrystallized (TRICOR) 145 mg tablet 12/08/19 23 Active ferrous sulfate 325 mg (65 mg of elemental iron) tablet Take 1 tablet (325 mg total) by mouth daily 03/14/20 22 Active folic acid (FOLVITE) 1 mg tablet Take 1 tablet (1,000 mcg total) by mouth daily 12/08/19 23 Active levothyroxine (SYNTHROID) 150 mcg tablet Take 1 tablet (150 mcg total) by mouth daily 12/08/19 23 Active levothyroxine 175 mcg capsule daily Active metoprolol tartrate (LOPRESSOR) 25 mg immediate release tablet 12/08/19 23 Active predniSONE (DELTASONE) 5 mg tablet Take 1 tablet (5 mg) by mouth daily 12/08/19 23 Active traMADoL (ULTRAM) 50 mg tablet 12/08/19 23 Active tetrahydrozoline 0.05 % ophthalmic solution Administer 1 drop into affected eye(s) 4 (four) times a day as needed Active warfarin (COUMADIN) 5 mg tablet 12/08/19 23 Active Active Problems Problem Noted Date Diagnosed Date Left hip pain 01/29/2023 02/22/2023 Hyperkalemia 09/12/2022 02/22/2023 Systolic dysfunction, left ventricle 06/28/2022 02/22/2023 Disorder of pleura 12/30/2021 02/22/2023 Ascending aortic aneurysm 12/27/20212022 Aortic valve prosthesis present 12/27/2021 02/22/2023 Atherosclerotic heart diseas e of [place] coronary artery without angina pectoris 11/23/2021 02/22/2023 Dyslipidemia 11/23/2021 02/22/2023 Stage 3b chronic kidney disease 01/09/2018 02/22/2023 Iron deficiency anemia 01/03/2018 Anemia in chronic kidney disease 09/14/2016 02/22/2023 Mechanical heart valve present 04/17/2016 0 02/22/2023 Folate deficiency 12/23/2015 02/22/2023 Autoimmune hemolytic anemia 07/22/201501/28 Overview (02/22/2023): Transitioned From: Anemia; Description: Dec 2014 Acquired hypothyroidism 05/10/2012 02/23/20 23 Benign essential hypertension 05/10/2012 Overview (02/22/2023): Transitioned From: Hypertension Transitioned From: Hypertension Osteoarthrosis involving lower leg 03/14/2012 02/22/2023 Overview (02/22/2023): 2015 IMO Updt 2015 IMO Updt Overview: 2015 IMO Updt Overview: 2015 IMO Updt Social History Tobacco Use Types Packs/Day Years Used Date Smoking Tobacco: Never Assessed Sex and Gender Information Value Date Recorded Sex Assigned at Not on file Legal Sex 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 Gender Identity Not on file Sexual Orientation Not on file Plan of Treatment Not on file Insurance [facility] MED[facility] Address: [facility] [id number] [place] [phone] MEDICARE [facility] MED[facility] Address: [address] [address] [place] [address] [place] [phone] MEDICARE [facility] MEDIC[facility] Address: [address] [address] [place] [address] Care Teams Fitting Room Associate Relationship Specialty Start Date End Date Tre Hyde MD [address] [place] [address] PCP - General Family Medicine 02/08/23 Fransisco Torres DO [address] [place] [id number] Referring Physician Family Medicine 11/27/24
--- OUTSIDE RECORDS SUMMARY | 2024-12-08 15:24 | XMS_ITS | Clinical Summary ---
Author Organization [facility] [place] Address [facility] [place] [address] Care Team Providers Care Comparison Shopper Name Role Phone Tre Hyde MD Primary Care Provider + KrishnaFransisco browning Kev DO Unavailable [phone] Allergies Active Allergy Reactions Criticality Noted Date [...] 12/27/2021 02/22/2023 Atherosclerotic heart diseas e of [place] coronary artery without angina pectoris 11/23/2021 02/22/2023 [...] 2015 IMO Updt Overview: 2015 IMO Updt Surgical History Surgery Date Site/Laterality Comments KNEE SURGERY Social History Tobacco Use Types Packs/Day Years Used Date Smoking Tobacco: Never Assessed Sex and Gender Information Value Date Recorded Sex Assigned at Not on file 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 Gender Identity Not on file Sexual Orientation Not on file Obstetrics History Plan of Treatment Health Maintenance Due Date Last Done Comments Depression Screening 1935 Fall Risk Assessment 1935 Hepatitis B Screening 1953 Well Visit 65+ 2001 Covid-19 Vaccine (5 - 2023-2 5 season) 2024 08/01/2022, 10/11/2021, 01/07/2021, Additional history exists DTaP/Tdap/Td Vaccine (4 - Td or Tdap) 01/28/2034 01/29/2024, 12/10/2023, 11/23/2015 Pneumococcal vaccine 65+ Completed 020, 11/05/2019, 07/09/2018 Influenza Vaccine Completed 07/02/2024, , 07/11/2021, Additional history exists Zoster Vaccine Completed 07/02/2024, 10/30, 09/13/2021, Additional history exists Insurance DR DENSON [address] [place] [address] MEDICARE [employer] [place] [id number] MEDICARE [employer] [place] [id number] Care Teams Comparison Shopper Relationship Specialty Start Date End Date Tre Hyde MD [address] [facility] [address] [place] [address] PCP - General Family Medicine 02/08/23 Fransisco Torres DO [address] [place] [address] Referring Physician Family Medicine 11/27/24
[2024-12-08 15:33] LABS: Hematocrit 32.9 % (42.0-52.0); Hemoglobin 10.2 g/dL (14.0-18.0); Mean Corpuscular Volume 106.5 fl (80-100); Mean Platelet Volume 8.8 fl (7.4-10.4); Platelet Count Result 161 k/mm3 (150-375); Red Blood Count 3.09 M/mm3 (4.6-6.20); Red Cell Distribution Width 12.1 % (11.5-14.5); White Blood Count 4.4 K/mm3 (4.5-10.0)
[2024-12-08 16:18] LABS: INR 2.6
[2024-12-08 17:05] LABS: Anion Gap 8 mmol/L (4-12); Blood Urea Nitrogen 42 mg/dL (9-20); Calcium 9.4 mg/dL (8.4-10.2); Carbon Dioxide 25 mmol/L (22-30); Chloride 106 mmol/L (98-107); Estimated Glomerular Filt Rate 31; Glucose 97 mg/dL (65-110); Potassium 5.3 mmol/L (3.4-5.0); Sodium 139 mmol/L (137-145)
[2024-12-08 17:55] LABS: Iron 71 ug/dL (49-181); Percent Iron Saturation 21 % (20-50)
[2024-12-08 18:14] LABS: Folic Acid > 20.0 ng/mL (2.76->20)
== END 2024-12-08 15:16 | disposition home or self-care (01) ==
PROVIDERS: PCP Student in an Organized Health Care Education/Training Program; Referring Provider Internal Medicine Cardiovascular Disease; Visit Provider Internal Medicine Hematology & Oncology
DX: D50.8 Other iron deficiency anemias (principal); Z79.01 Long term (current) use of anticoagulants; Z95.2 Presence of prosthetic heart valve
CPT/HCPCS: 36415; 80048; 82607; 82728; 82746; 83540; 83550; 85027; 85610

== ENCOUNTER 2025-01-19 10:38 | Outpatient (CLI) | payer MEDICARE, SELFPAY ==
[2025-01-19 11:39] LABS: Prothrombin Time 23.1 Seconds (11.1-14.7)
--- OUTSIDE RECORDS SUMMARY | 2025-01-19 12:31 | XMS_ITS | Data Portability ---
Author Organization [facility], [employer] Address [address] [place] [address] Care Team Providers Care Family Welfare Social Work Professor Name Role Phone DANIELASUDEEPZITA Door Paneler BRANDIE ALICIA Medical Oncologist Assessment Encounter Date Assessment Date Assessment LastModified by Organization Details LastModified Time 07/12/2021 07/12/2021 Medication Changes Signs and symptoms of when to seek further care reviewed with patient. Patient to follow up with primary care provider or return to clinic for any worsening signs and symptoms. Always present to ER or Urgent Care with any progression of/alarming symptoms, significant changes in symptoms or any concerning or urgent matters. Patient verbalized agreement and understanding of treatment plan. Will F/U with previous PCP. [email or web address] Not available 07/12/2021 16:51:56 Plan of Treatment Reminders Order Date Submit Date Provider Last Modified By Organization Details Last Modified Time Details Appointments None record ed. Lab None record ed. Referral None record ed. Procedures None record ed. Surgeries None record ed. Imaging None record ed. Medication Orders None record ed. Patient TargetsNo targets recorded. Patient Instructions Encounter Date Encounter Id Patient Instructions Last Modified By Organization Details Last Modified Time 07/12/2021 [id number] hypothyroidism: care instructions [email or web address] Not available 07/12/2021 16:52:05 Reason for Referral None Reported. Problems Name Problem SNOMED Code Status Onset Date Resolution Date Notes Provider Name and Address Organization Details Recorded Time Hypothyroidism 40403626 Active 2020 Bre Rosales, HAMMER MILL OPERATOR-BC, PMHNP-BC [address] [place], [address], [facility] 16:51:20 Problem Notes None recorded. Procedures Surgical History Date Name Laterality Status Provider Name and Address Organization Details Recorded Time excision of lumbar intervertebral disc completed [place] [facility] 07/08/2021 15:49:47 cervical laminectomy completed Shamyra [place] - [facility] [place] [facility] 07/08/2021 15:55:22 coronary artery bypass grafts x 3 completed [place] [facility] 07/08/2021 15:55:53 total replacement of right knee joint completed [place] [facility] 07/08/2021 15:58:21 repair of hole of macula lutea completed [place] [facility] 07/08/2021 15:59:41 Cataract Surgery completed [place] [facility] 07/08/2021 15:59:56 Imaging Results None recorded. Procedure Notes None recorded. Medical Equipment None Reported. Medications Name Sig Start Date Stop Date Status Note LastModified by Organization Details LastModified Time pravastatin 40 mg tablet TAKE 1 TABLET BY MOUTH NIGHTLY AT BEDTIME active Not Available Not Available No t Available prednisone 20 mg tablet TAKE 1 TABLET BY MOUTH IN THE MORNING FOR 7 DAYS (RESUME 5MG TABLETS ONCE YOU HAVE COMPLETE D) 07/08 completed Not Available Not Available Not Available prednisone 5 mg tablet TAKE 1 TABLET BY MOUTH DAILY 07/12 completed Not Available Not Available Not Available dicyclomine 20 mg tablet TAKE 1 TABLET BY MOUTH 4 TIMES DAILY NEEDED (ABDOMIN AL PAIN CRAMPING ) 07/11 completed Not Available Not Available Not Available cephalexin 500 mg capsule TAKE 1 CAPSULE BY MOUTH THREE TIMES DAILY 07/08 completed Not Available Not Available Not Available warfarin 5 mg tablet TAKE 1 TABS (7.5 MG) ON SUNDAY AND SUNDAY; TAKE 1 TAB (5 MG) ALL OTHER DAYS OF THE WEEK. active Not Available Not Available No t Available levothyroxin e 150 mcg tablet TAKE 1 TABLET BY MOUTH DAILY 07/11 completed Not Available Not Available Not Available metoprolol tartrate 50 mg tablet TAKE 1 2 (ONE HALF) TABLET BY MOUTH ONCE DAILY active Not Available Not Available No t Available folic acid 1 mg tablet TAKE 1 TABLET BY MOUTH ONCE DAILY active Not Available Not Available No t Available doxazosin 2 mg tablet active Not Available Not Available No t Available amoxicillin 875 mg-potassium clavulanate 125 mg tablet TAKE 1 TABLET BY MOUTH TWICE DAILY FOR 10 DAYS 07/08 completed Not Available Not Available Not Available cyclobenzapr ine 5 mg tablet 07/11 completed Not Available Not Available Not Available multivitamin Take 1 tablet by oral route daily. active Not Available Not Available No t Available fenofibrate nanocrystall ized 145 mg tablet TAKE 1 TABLET BY MOUTH ONCE DAILY active Not Available Not Available No t Available Osteo Bi-Flex Triple Strength take 1 tablet by oral route daily active Not Available Not Available No t Available levothyroxin e 175 mcg capsule Take 1 capsule every day by oral route. active Not Available Not Available No t Available aspirin 81 mg capsule Take 1 capsule every day by oral route. active Not Available Not Available No t Available Vitals Date Recorded Heart rate Respiratory rate Oxygen saturation Oxygen saturation in Arterial blood by Pulse oximetry Body temperature Systolic blood pressure Diastolic blood pressure Provider Name and Address Organization Details Last Updated DateTime 83 /min 20 /min 98 % 98 % 98.4 [degF] 130 mm[Hg] 80 mm[Hg] Chrissie Savanna [facility] 15:02:21 Social History Question Answer Notes LastModified by Organizat ion Details LastModified Time Tobacco Smoking Status Unknown If Ever Smoked Crystal Shashank Rosales, HAMMER MILL OPERATOR-BC, PMHNP-BC [address] [place] [address], [address], [facility] 07/12/2021 16:47:34 Do You Have An Advance Directive? Yes [email or web address] Information not available 07/12/2021 What Is Your Level Of Alcohol Consumption? None [email or web address] Information not available 07/12/2021 Are You Blind Or Do You Have Difficulty Seeing? No [email or web address] Information not available 07/12/2021 What Is Your Level Of Caffeine Consumption? Occasional [email or web address] Information not available 07/12/2021 What Type Of Sewing Machine Tester Do You Use? None [email or web address] Information not available 07/12/2021 Are You Currently Employed? No [email or web address] Information not available 07/12/2021 Are You Deaf Or Do You Have Serious Difficulty Hearing? No [email or web address] Information not available 07/12/2021 What Type Of Diet Are You Following? REGULAR [email or web address] Information not available 07/12/2021 Have There Been Any Changes To Your Family Or Social Situation? Yes Information no t available 07/12/2021 Are There Any Guns Present In Your Home? No [email or web address] Information not available 07/12/2021 Do You Use Insect Repellent Routinely? Yes [email or web address] Information not available 07/12/2021 Do You Have A Medical Power Of Attorney Lawyer? Yes [email or web address] Information not available 07/12/2021 What Was The Date Of Your Most Recent Tobacco Screening? 07/12/2021 [email or web address] Information not available 07/12/2021 Do You Have Any Pets? No [email or web address] Information not available 07/12/2021 What Is Your Relationship Status? Information not available 07/12/2021 Do You Use Your Seat Belt Or Car Seat Routinely? Yes [email or web address] Information not available 07/12/2021 Do You Have Smoke And Carbon Monoxide Detectors In Your Home? Yes Information not available 07/12/2021 Are You Passively Exposed To Smoke? No [email or web address] Information no t available 07/12/2021 Do You Feel Stressed (tense, Restless, Nervous, Or Anxious, Or Unable To Sleep At Night)? [id number] [email or web address] Information not available 07/12/2021 Do You Use Any Illicit Or Recreational Drugs? No Information not available 07/12/2021 Do You Use Sunscreen Routinely? Yes [email or web address] Information not available 07/12/2021 Are You Currently In School? No [email or web address] Information not available 07/12/2021 Do You Have Any Dietary Restrictions? No [email or web address] Information not available 07/12/2021 Do You Or Have You Ever Used Any Other Forms Of Tobacco Or Nicotine? No [email or web address] Information not available 07/12/2021 Sex: Male Functional Status Question Answer Note LastModified by Organizat ion Details LastModified Time Do you have difficulty walking or climbing stairs? No Information not available 07/12/2021 Do you have transportation difficulties? No [email or web address] Information not available 07/12/2021 Are you able to walk? YESWOREST [email or web address] Information not available 07/12/2021 Do you have difficulty doing errands alone? No Information not available 07/12/2021 Are you able to care for yourself? Yes Information n ot available 07/12/2021 Do you have difficulty dressing or bathing? No [email or web address] Information not available 07/12/2021 What is your exercise level? Occasional [email or web address] Information not available 07/12/2021 Mental Status Question Answer Note LastModified by Organization D etails LastModified Time Do you have difficulty concentrating, remembering or making decisions? No [email or web address] Information no t available 07/12/2021 Family History Nothing Reported. 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 Y Cataracts Y Endocrine Diseases / Disorders Y Hyperlipidemia Y Neurological Diseases / Disorders Y Past Encounters Encounter ID Performer Location Encounter Start Date Encounter Closed Date Diagnosis/Indication Diagnosis SNOMED-CT Code Diagnosis ICD10 Code Diagnosis Note [id number] BROOKLYN Valladares, BRAULIO Main Office [address] [place] [address] 07/12/2021 06:38:23 07/12/2021 16:56:11 Hypothyroidism 96046557 E03.9 Health Concerns Section Related Observation LastModified by Organization Detai ls LastModified Time None Recorded Concern Status LastModified by Organization Details LastModified Time None Recorded Advance Directives Directive Y: Payers Encounter Date Sequence Insurance Name Policy Number Policy Schroeder Covered Member ID Schroeder Member ID Guarantor Name 07/12/2021 1 [place] Binu Adorno [id number] Binu Adorno Notes Date Note Type Note Provider Name and Address Organization Details Recorded Time text/html HypothyroidReported bypatient.Reason for Visit:general check-up Duration:>12 months Associated Symptoms:no weakness; no lightheadedness; no fatigue; no cold intolerance; no constipation; no weight gain; no involuntary weight loss; normal mood; no menstrual irregularity; no pain; no dry/coarse skin; no edema; no deepening of the voice; no hoarseness; no goiter; no mass detected; no chest pain; no palpitations Treatment:taking medication as directed BROOKLYN Valladares, PMHNPJEWEL [address] [place], [address], [facility] 07/12/2021 16:52:31
--- OUTSIDE RECORDS SUMMARY | 2025-01-19 12:31 | XMS_ITS ---
Author Organization [facility] Address [address] [place], [place] [address] Care Team Providers Care Focus Puller Name Role Phone SUNITHA MACIAS Unavailable [phone] Answer, Declined Unavailable Unavailable REASON FOR VISIT [...] Location Date Provider Diagnosis [facility] [place] [address] [place], [place] [id number] 04/10/2024 SUNITHA MACIAS Fungal infection of nail [...] office. Progress Notes * Pippa ADORNOB:1935 ( 89 yo M)Acc No.[id number]:04/10/2024 Progress Notes Patient: Binu JOHN Provider: Traci Macias DPM :1935 A ge:88 Y S ex:Male Date:04/10/2024 Address:[address] [place], [place] [address] Subjective: * Chief Complaints: * L G toenail coming off, painful * HPI: H PI: New Complaint P [...] m ole changes. * Medical History: * Surgical History: * Hospitalization/Major Diagno stic Procedure: * Medications: T akingWarfarin Sodium Ferrous Sulfate Aspirin 81 hydrALAZINE HCl Isosorbide Mononitrate ER predniSONE Metoprolol Succinate Fenofibrate Taking Warfarin Sodium Taking Ferrous Sulfate Taking Aspirin 81 Taking hydrALAZINE HCl Taking Isosorbide Mononitrate ER Taking predniSONE Taking Metoprolol Succinate Taking Fenofibrate Objective: * Vitals: S hoe [...] toe(s) - M79.675 Plan: * Treatment: * Procedure Codes: * Billing Information: * Visit Code: 46322 Office Visit, New Pt., Level 3. * Procedure Codes: * Sign off status: Completed true * Provider: Traci Macias DPM Date: 0 04/10/2024 Generated for Erna brown/Leonela/Jaden on: 0 01/19/2025 12:31 PM CDT History and Physical Notes * HPI (History [...]
--- OUTSIDE RECORDS SUMMARY | 2025-01-19 12:31 | XMS_ITS | Referral Summary ---
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
--- OUTSIDE RECORDS SUMMARY | 2025-01-19 12:31 | XMS_ITS | Clinical Summary ---
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
--- OUTSIDE RECORDS SUMMARY | 2025-01-19 12:31 | XMS_ITS | Clinical Summary ---
Author Organization [facility] Address [address] [facility] [place] [address] Care Team Providers Care Waredresser Name Role Phone Adonis Estrdaa MD Unavailable [phone] Kev Nelson MD Primary Care Provider [phone] Source Comments [facility],non-owned Affiliates and Associated Physician Practices is amultiple site organization consisting of ambulatory clinics and hospital sitesin [place], [place], [place] and [place]. This disclosure is being madepursuant to the Care Everywhere program and may not contain all information available regarding this patient. Last updated 18.[facility] [employer] [facility] Allergies Active Allergy Reactions Criticality Noted Date [...] and heating? Not hard at all 03/14/2023 [facility] - Occupational Stress [...] place to sleep or slept in a group home (including now)? No 03/14/2023 Sex and Gender [...] complete this topic MENINGOCOCCAL (Group B) VACCINE SHARED DECISION-MAKING Aged Out No longer eligible based on patient's age to complete this topic MENINGOCOCCAL GROUPS A/C/Y/W VACCINE Aged Out No longer eligible based on patient's age to complete this topic Advance Directives Documents on File Type Date Recorded Patient Cut Out Stitcher Expl anation Adv Directive/Living Will/POA 04/04/2023 2:26 [...] 6:19 PM 06/14/2012 2:48 PM Care Teams Waredresser Relationship Specialty Start Date End Date Kev Nelson MD PCP - General 07/02/12 Adonis Estrada MD Orthopedic Surgery 03/14/12
--- OUTSIDE RECORDS SUMMARY | 2025-01-19 12:31 | XMS_ITS | Clinical Summary ---
Author Organization [facility] Pam Black Address [address] [place] [address] Care Team Providers Care Supervisor Electronic Testing Name Role Phone Fransisco Torres Primary Care Provider + Allergies Active Allergy Reactions Criticality Noted Date Comments Oxycodone Hallucination,Palpit a tions,Rash Medium 03/19/2023 Pt with history of altered mental status and hallucinations with oxycodone Medications aspirin (ECOTRIN EC) 81 mg Tablet, Delayed Release (E.C.) Take 81 mg by mouth daily. Active fenofibrate nanocrystallized (TRICOR) 145 mg tablet Take 145 mg by mouth daily. 12/08/19 23 Active ferrous sulfate 325 mg (65 mg iron) tablet Take 325 mg by mouth daily with breakfast . 03/14/20 22 Active hydrALAZINE (APRESOLINE) 10 mg tablet Take 10 mg by mouth 3 times daily. 08/17/20 23 Active levothyroxine 150 mcg tablet Take 150 mcg by mouth daily. 06/11/20 21 Active metoprolol succinate (TOPROL XL) 25 mg Extended Release 24 hour tablet Take 25 mg by mouth daily. 08/17/20 23 Active pravastatin (PRAVACHOL) 40 mg tablet Take 40 mg by mouth daily. 09/25/20 23 Active isosorbide mononitrate (IMDUR) 30 mg Extended Release 24 hour tablet Take 30 mg by mouth daily in the morning. 09/03/20 23 Active furosemide (LASIX) 40 mg tablet Take 40 mg by mouth daily. 09/03/20 23 Active warfarin (COUMADIN) 5 mg tablet Take 2.5 mg by mouth. 12/08/19 23 Active predniSONE (DELTASONE) 5 mg tabletIndications:Au toimmune hemolytic anemia (CMS/HCC) Take 1 Tablet (5 mg) by mouth daily. 90 Tablet 03/03/20 24 Active folic acid (FOLVITE) 1 mg tabletIndications:Au toimmune hemolytic anemia (CMS/HCC) TAKE 1 TABLET(1 MG) BY MOUTH DAILY 90 Tablet 1 01/07/20 25 Active folic acid (FOLVITE) 1 mg tabletIndications:Au toimmune hemolytic anemia (CMS/HCC) TAKE 1 TABLET(1 MG) BY MOUTH DAILY 90 Tablet 1 07/07/20 24 025 Discontinued Active Problems No known active problems Encounters Date Type Department Care Team Description 01/14/2025 External Device Data STL ABSTRACTION Provider, Abstract 01/06/2025 Refill [facility] - [place] [address] [place] [address] Yovany Neves MD Autoimmune hemolytic anemia (CMS/HCC) 01/03/2025 External Device Data STL ABSTRACTION Provider, Abstract 01/02/2025 External Device Data ST[facility] ABSTRACTION Provider, Abstract 12/16/2024 External Device Data STL ABSTRACTION Provider, Abstract 11/19/2024 External Device Data STL ABSTRACTION Provider, Abstract 11/19/2024 Orders Only [facility] - [place] [address] [place] [address] Yovany Neves MD 11/18/2024 External Device Data STL ABSTRACTION Provider, Abstract from Last 3 Months Family History Medical [...] on file Legal Sex Male 2:21 PM FREE LANCE MODEL Gender Identity Not on file Sexual Orientation Not on file Last Filed Vital Signs Vital Sign Reading Time Taken Comments Blood Pressure 140/74 09/19/2024 11:17 AM FREE LANCE MODEL Pulse 67 09/19/2024 11:17 AM FREE LANCE MODEL Temperature 36.5 C (97.7 F) 09/19/2024 11:17 AM FREE LANCE MODEL Respiratory Rate 18 09/19/2024 11:17 AM FREE LANCE MODEL Oxygen Saturation 92% 09/19/2024 11:17 AM FREE LANCE MODEL Inhaled Oxygen Concentration - - Weight 84.4 kg (186 lb) 09/19/2024 11:17 AM FREE LANCE MODEL Height 177.8 cm (5' 10 ) 10/16/2023 11:09 AM FREE LANCE MODEL Body Mass Index 26.69 10/16/2023 11:09 AM FREE LANCE MODEL Plan of Treatment Upcoming Encounters Date Type Department Care Team (Late st Contact Info) Description 02/17/2025 10:30 AM CDT Office Visit [facility] [address] [place] [address] Jaqueline Boone MD [address] [place] [address] Health Maintenance Due Date Last Done Comments RSV VACCINE (60+ or ) (1 - 1-dose 75+ series) 2011 Medicare Advantage ([place]) Preventative Visit/Annual Wellness Visit 10/29/2024 01/29/2023 COVID-19 Vaccine (6 2023-2 5 season) 2024 07/02/2024, 08/01/2022, 10/11/2021, Additional history exists DTAP/TDAP/TD VACCINES (3 - T d or Tdap) 01/28/2034 01/29/2024, 11/23/2015 INFLUENZA VACCINE Completed 07/02/2024, , 06/27/2023, Additional history exists PNEUMOCOCCAL VACCINE 50+ YEARS Completed 0 07/02/2024, 07/14/2020, 11/05/2019, Additional history exists ZOSTER VACCINE Completed 07/02/2024, 10/30, 09/13/2021, Additional history exists Procedures Procedure Name Priority Date/Time Associated Diagnosis Comments PROTIME-INR Routine 11/18/2024 3:34 PM FREE LANCE MODEL from Last 3 Months Results * PROTIME-INR (11/18/2024 3:34 PM FREE LANCE MODEL) Blood us Yovany Neves MD HEMATOLOGY ORDERABLES Final Res ult from Last [address] [place] [address] [facility] [id number] Care Teams Supervisor Electronic Testing Relationship Specialty Start Date End Date Fransisco Torres DO [facility] [place] [address] PCP - General Family Practice 10/16/23
--- OUTSIDE RECORDS SUMMARY | 2025-01-19 12:31 | XMS_ITS | Encounter Summary ---
Author Organization [facility] Address [address] [place] [address] Phone Care Team Providers Care Corduroy Cutting Supervisor Name Role Phone Michele Sweeney MD Unavailable [phone] Yash Nava MD Primary Care Provider [phone] Reason for Visit * Reason Comments Medication Refill Encounter Details Date Type Department Care Team (Late st Contact Info) Description 09/25/2023 Refill [facility] [address] [address] Luis Guerrero MD [address] [place] [address] Medication Refill Social History Tobacco Use [...] request from pharmacy. Please fill if appropriate. ER CHANGER documented in this encounter Plan of Treatment Not on file documented as of this encounter Visit Diagnoses Not on filedocumented in this encounter Additional Health Concerns Assessment Noted Time PHQ-9 Depression Total Score: 0 08/16/20 23 11:34 AM CDT documented as of this encounter Care Teams Corduroy Cutting Supervisor Relationship Specialty [place] [address] [place] [address] PCP - General General Surgery 07/21/21 Michele Sweeney MD Consulting Physician Internal Medicine 05/07/18 documented as of this encounter
--- OUTSIDE RECORDS SUMMARY | 2025-01-19 12:31 | XMS_ITS | Continuity of Care Document ---
Author Organization [employer] [facility] Address [address] [facility] [address] [place] [address] Phone Care Team Providers Care Industrial Specialist Name Role Phone Leal Sundar ENAMORADO Unavailable Unavailable Allergies, Adverse Reactions, Alerts Substance Reaction Status Criticality No Known Allergies Active No Inform ation Medications Medication Instructions Dosage Effective Dates (start - stop) Status Comments prednisone 5 mg tablet - Active warfarin 5 mg tablet take 1 tablet by oral route every day 5 MG - Active BACTRIM (unknown strength) Not Available - Active pravastatin 40 mg tablet take 1 tablet by oral route every day 40 MG - Active Aspirin Low Dose 81 mg Tab, Delayed Release take 1 tablet (81MG) by ORAL route every day 81 MG - Active Metoprolol Tartrate 100 mg Tab take 1 tablet (100MG) by ORAL route 2 times every day with meals 100 MG - Active Levothyroxine 200 mcg Tab take 1 tablet (200MCG) by ORAL route every day 200 MCG - Active Procedures Procedure Date Refraction SCODI, Retina Office/outpatient Visit, Est No Charge Refraction No Charge Glasses Check Refraction Eye Exam & Treatment [facility] BF Plastic Sphcyl [place] To +/-4d .12-2d Progressive Lens Per Lens Eye Exam & Treatment Refraction Eye Exam, New Patient Refraction [facility] Purchases BF Plastic Sphcyl [place] To +/-4d .12-2d Progressive Lens Per Lens Advance Directives Directive Yes / No Effective Date File Name No Information Encounters Encounter Description Practice Location Reason(s) For Visit Diagnoses Date Provider Providers Copied on Encounter Office/outpa tient Visit, Est [facility], [address] [place] [address] [address], [place], [place], [id number], tel:[phone] SEC Elisa Mendoza Decreased vision (chief complaint) Macular cyst, hole, or pseudohole, right eye 6 Mel Kwok. [address] [place] [address], [id number] , . tel: [phone] Referring Provider: Sundar Mcrae, [address] [place] [address], [address] . tel:[phone] [facility], [address], [place], [place], [id number], [place] tel:[phone] SEC Elisa Mendoza Rx Check (chief complaint) Presbyopia 5 Mel Kwok. [address] [place] [address], [id number] , [place]. tel: [phone] Referring Provider: Sundar Mcrae, [address], [address] . tel:[phone] [facility], [address] [place] [address] [address], [place], [place], [id number], [place] tel:[phone] SEC Elisa Mendoza complete exam (chief complaint) PresbyopiaNuclear sclerotic cataract, bilateral 5 Mel Kwok. [address], [id number] , . tel: [phone] Referring Provider: Sundar Mcrae, [address] [address], [address] . tel:[phone] [facility], [address], [place], [place], [id number], [place] tel:[phone] SEC Elisa Mendoza No Information 5 [facility] [employer] [address] [facility], [address] [place] [address], [id number] , [place]. tel: [phone] Referring Provider: Tomasz Simons, [address], [place], [address] . tel:[phone] sulting Provider: Tomasz Simons [address], [place], [address] . tel:[phone] [facility], [address], [place], [place], [id number], [place] tel:[phone] SEC Elisa Mendoza No Information 5 Mel Kwok. [address] [facility], [address] [place] [address], [id number] , [place]. tel:[phone] [facility], [address], [place], [place], [id number], [place] tel:[phone] SEC Elisa Mendoza Complete Exam (chief complaint) HYPERMETROPIASENIL E NUCLEAR CATARACT 4 Mel Kwok. [address] [facility], [address], [place], [id number] , [place]. tel:[phone] Referring Provider: Sundar Mcrae, [address] [facility] Suite [facility], [place], [address] . tel:[phone] [facility], [address], [place], [place], [id number], [place] tel:[phone] SEC Elisa Mendoza blurry vision (chief complaint) HYPERMETROPIASENIL E NUCLEAR CATARACT 3 Mel Kwok. [address] [facility], [address], [id number] , . tel:[phone] [facility], [address] [place], [place] [address], [place], [place], [id number], tel:[phone] SEC Elisa Mendoza No Information 3 [employer] [address], [id number] , . tel:[phone] Referring Provider: Sundar Mcrae, [address] [place] [address], [address] . [phone] sulting Provider: Tomasz Simons, [address] [facility], [place], [address] . tel:[phone] [facility], [address] [place] [address] [address], [place], [place], [id number], tel:[phone] SEC Elisa Mendoza No Information 3 Mel Kwok. [address] [place] [address], [id number] , . tel: [phone] Family History Family Member Type Diagnosis Age At Onset No Information Payers Payer name Insurance type Covered constitution party ID Naaznin martin(s) [place] [id number] [address] [id number] Social History Type Description Quantity Date Captured [...]
--- OUTSIDE RECORDS SUMMARY | 2025-01-19 12:31 | XMS_ITS | Patient Health Record ---
Author Organization [facility] Address [address] [place], [place] [address] Care Team Providers Care Powder Mill Operator Name Role Phone SUNITHA GILLESPIE Unavailable [phone] Answer, Declined Unavailable Unavailable Reason For Referral [...] Location Date Provider Diagnosis [facility] [place] [address] [place], [place] [id number] 04/10/2024 SUNITHA GILLESPIE Fungal infection of nail [...] Insured Coverage Start Date Coverage End Date [facility] [address] [address] [place] [id number] Binu Adorno Self - patient is the insured
--- OUTSIDE RECORDS SUMMARY | 2025-01-19 12:31 | XMS_ITS | Clinical Summary ---
Author Organization [facility] Address [address], [facility] [place] [address] Phone Care Team Providers Care Final Assembly Worker Name Role Phone Michele Sweeney MD Unavailable [phone] Ysah Nava MD Primary Care Provider [phone] Allergies Active Allergy Reactions Criticality Noted Date [...] Dyslipidemia 11/23/2021 Atherosclerotic heart diseas e of [place] coronary artery without angina pectoris 11/23/2021 Stage [...] to complete this topic Insurance [facility] Care Teams Final Assembly Worker Relationship Specialty [place] [address] [address] PCP - General General Surgery 07/21/21 Michele Sweeney MD Consulting Physician Internal Medicine 05/07/18
== END 2025-01-19 10:39 | disposition home or self-care (01) ==
LOC: ANHLAB 10:40
PROVIDERS: PCP Student in an Organized Health Care Education/Training Program; Visit Provider Internal Medicine Cardiovascular Disease
DX: Z79.01 Long term (current) use of anticoagulants (principal); Z95.2 Presence of prosthetic heart valve
CPT/HCPCS: 36415; 85610

== ENCOUNTER 2025-02-16 09:27 | Outpatient (CLI) | payer MEDICARE, SELFPAY ==
[2025-02-16 09:42] LABS: Basophils Percent Auto 0.2 % (0.2-1.2); Eosinophils Absolute Auto 0.2 K/mm3 (0-0.3); Eosinophils Percent Auto 4.4 % (0-4.4); Hematocrit 32.2 % (42.0-52.0); Hemoglobin 10.3 g/dL (14.0-18.0); Immature Granulocyte Absolute 0.03 K/mm3 (0.00-0.031); Immature Granulocyte Percent A 0.6 % (0-0.5); Lymphocytes Absolute Auto 1.44 K/mm3 (0.9-3.2); Lymphocytes Percent Auto 30.3 % (18.3-44.2); Mean Corpuscular Volume 103.2 fl (80-100); Mean Platelet Volume 9.1 fl (7.4-10.4); Monocytes Absolute Auto 0.4 K/mm3 (0.1-0.6); Neutrophils Absolute Auto 2.6 K/mm3 (1.3-6.7); Neutrophils Percent Auto 55.5 % (45.5-73.1); Platelet Count Result 144 k/mm3 (150-375); Red Blood Count 3.12 M/mm3 (4.6-6.20); Red Cell Distribution Width 13.9 % (11.5-14.5); White Blood Count 4.8 K/mm3 (4.5-10.0)
--- OUTSIDE RECORDS SUMMARY | 2025-02-16 10:28 | XMS_ITS | Clinical Summary ---
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 External Device Data STL ABSTRACTION Provider, Abstract 01/02/2025 External Device Data STL ABSTRACTION Provider, Abstract 12/16/2024 External Device Data STL ABSTRACTION Provider, Abstract 11/19/2024 External Device Data STL ABSTRACTION Provider, Abstract 11/19/2024 Orders Only [facility] Oncology and Hematology - Shahriar [address] [place] [address] Yovany Neves MD 11/18/2024 External Device Data [...] on file Legal Sex Male 2:21 PM 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 Gender Identity Not on file Sexual Orientation Not on file Last Filed Vital Signs Vital Sign Reading Time Taken Comments Blood Pressure 140/74 09/19/2024 11:17 AM PROFESSOR 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 Pulse 67 09/19/2024 11:17 AM PROFESSOR 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 Temperature 36.5 C (97.7 F) 09/19/2024 11:17 AM PROFESSOR 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 Respiratory Rate 18 09/19/2024 11:17 AM PROFESSOR 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 Oxygen Saturation 92% 09/19/2024 11:17 AM PROFESSOR 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 Inhaled Oxygen Concentration - - Weight 84.4 kg (186 lb) 09/19/2024 11:17 AM PROFESSOR 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 Height 177.8 cm (5' 10 ) 10/16/2023 11:09 AM PROFESSOR 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 Body Mass Index 26.69 10/16/2023 11:09 AM PROFESSOR 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 Plan of Treatment Upcoming Encounters Date Type Department Care Team (Late st Contact Info) Description 02/17/2025 10:30 AM CDT Office Visit [facility] Oncology and Hematology - Shahriar [address] [place] [address] Jaqueline Boone MD [address] [place] [address] Health Maintenance Due Date Last Done Comments RSV VACCINE (60+ or ) (1 - 1-dose 75+ series) 2011 Medicare Advantage (SD) Preventative Visit/Annual Wellness Visit 10/29/2024 01/29/2023 COVID-19 Vaccine (6 - 2023-2 5 season) 2024 07/02/2024, 08/01/2022, 10/11/2021, [...] Diagnosis Comments PROTIME-INR Routine 11/18/2024 3:34 PM PROFESSOR 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 from Last 3 Months Results * PROTIME-INR (11/18/2024 3:34 PM PROFESSOR 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) Blood us Yovany Nvees MD HEMATOLOGY ORDERABLES Final Res ult from Last [address] [place] [address] [facility] [id number] Care Teams Sectional Belt Mold Assembler Relationship Specialty Start Date End Date Fransisco Torres DO [address] [place] [address] PCP - General Family Practice 10/16/23
--- OUTSIDE RECORDS SUMMARY | 2025-02-16 10:28 | XMS_ITS | Data Portability ---
Author Organization [facility] [employer] Address [address] [place] [address] Care Team Providers Care Extension Service Agent Name Role Phone DANIELASUDEEPZITA Records Technician BRANDIE ALICIA Medical Oncologist Assessment Encounter Date [...] treatment plan. Will F/U with previous PCP. Not available 07/12/2021 16:51:56 Plan of Treatment [...] By Organization Details Last Modified Time 07/12/2021 [id number] hypothyroidism: care instructions [email or web address] Not available 07/12/2021 16:52:05 Reason for Referral None Reported. Problems Name Problem SNOMED Code Status Onset Date Resolution Date Notes Provider Name and Address Organization Details Recorded Time Hypothyroidism 52258277 Active 2020 Bre Rosales, LOFT WORKER HEAD-BC, PMHNP-BC [address] [place], [address], [facility] 16:51:20 Problem Notes None recorded. 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 15:02:21 Social History Question Answer Notes LastModified by Organizat ion Details LastModified Time Tobacco Smoking Status Unknown If Ever Smoked Crystal Shashank Rosales, LOFT WORKER HEAD-BC, PMHNP-BC [address] [place] [address], [address], [facility] 07/12/2021 16:47:34 Do You Have An Advance Directive? Yes [email or web address] Information not available 07/12/2021 What Is Your Level Of Alcohol Consumption? None [email or web address] Information not available 07/12/2021 Are You Blind Or Do You Have Difficulty Seeing? No [email or web address] Information not available 07/12/2021 What Is Your Level Of Caffeine Consumption? Occasional [email or web address] Information not available 07/12/2021 What Type Of Computer Compositor Do You Use? None [email or web address] Information not available 07/12/2021 Are You Currently Employed? No [email or web address] Information not available 07/12/2021 Are You Deaf Or Do You Have Serious Difficulty Hearing? No [email or web address] Information not available 07/12/2021 What Type Of Diet Are You Following? REGULAR Information not available 07/12/2021 Have There Been Any Changes To Your Family Or Social Situation? Yes [email or web address] Information no t available 07/12/2021 Are There Any Guns Present In Your Home? No Information not available 07/12/2021 Do You Use Insect Repellent Routinely? Yes Information not available 07/12/2021 Do You Have A Medical Power Of Measurement Technician? Yes Information not available 07/12/2021 What Was The Date Of Your Most Recent Tobacco Screening? 07/12/2021 [email or web address] Information not available 07/12/2021 Do You Have Any Pets? No [email or web address] Information not available 07/12/2021 What Is Your Relationship Status? Information not available 07/12/2021 Do You Use Your Seat Belt Or Car Seat Routinely? Yes [email or web address] Information not available 07/12/2021 Do You Have Smoke And Carbon Monoxide Detectors In Your Home? Yes [email or web address] Information not available 07/12/2021 Are You Passively Exposed To Smoke? No [email or web address] Information no t available 07/12/2021 Do You Feel Stressed (tense, Restless, Nervous, Or Anxious, Or Unable To Sleep At Night)? [id number] [email or web address] Information not available 07/12/2021 Do You Use Any Illicit Or Recreational Drugs? No [email or web address] Information not available 07/12/2021 Do You Use Sunscreen Routinely? Yes Information not available 07/12/2021 Are You Currently In School? No Information not available 07/12/2021 Do You Have Any Dietary Restrictions? No Information not available 07/12/2021 Do You Or Have You Ever Used Any Other Forms Of Tobacco Or Nicotine? No [email or web address] Information not available 07/12/2021 Sex: Male Functional Status Question Answer Note LastModified by Organizat ion Details LastModified Time Do you have difficulty walking or climbing stairs? No [email or web address] Information not available 07/12/2021 Do you have transportation difficulties? No [email or web address] Information not available 07/12/2021 Are you able to walk? YESWOREST [email or web address] Information not available 07/12/2021 Do you have difficulty doing errands alone? No [email or web address] Information not available 07/12/2021 Are you able to care for yourself? Yes [email or web address] Information n ot available 07/12/2021 Do you have difficulty dressing or bathing? No [email or web address] Information not available 07/12/2021 What is your exercise level? Occasional [email or web address] Information not available 07/12/2021 Mental Status Question Answer Note LastModified by Organization D etails LastModified Time Do you have difficulty concentrating, remembering or making decisions? No [email or web address] Information no t available 07/12/2021 Family History Nothing Reported. Medical History Condition Response Atherosclerosis of [place] co ronary artery of [place] heart without angina pectoris Y Osteoarthritis Y Hospitalizations Y Anemia Y Cataracts Y Endocrine Diseases / Disorders Y Hyperlipidemia Y Neurological Diseases / Disorders Y Past Encounters Encounter ID Performer Location Encounter Start Date Encounter Closed Date Diagnosis/Indication Diagnosis SNOMED-CT Code Diagnosis ICD10 Code Diagnosis Note [id number] [place] Valladares, BRAULIO Main Office [address] [place] [address] 07/12/2021 06:38:23 07/12/2021 16:56:11 Hypothyroidism 71165119 E03.9 Health Concerns Section Related Observation LastModified by Organization Detai ls LastModified Time None Recorded Concern Status LastModified by Organization Details LastModified Time None Recorded Advance Directives Directive Y: Payers Encounter Date Sequence Insurance Name Policy Number Policy Schroeder Covered Member ID Schroeder Member ID Guarantor Name 07/12/2021 1 [place] Binu Adorno [id number] Binu Adorno Notes Date Note Type [...] palpitations Treatment:taking medication as directed [place] Valladares, PMHNPMauriceBC [address] [place], [address], [facility] 07/12/2021 16:52:31
--- OUTSIDE RECORDS SUMMARY | 2025-02-16 10:28 | XMS_ITS | Clinical Summary ---
Author Organization [facility] Address [address], [facility] 1 [place] [address] Phone Care Team Providers Care Survey Research Manager Name Role Phone Michele Sweeney MD Unavailable [phone] Yash Nava MD Primary Care Provider [phone] Allergies Active Allergy Reactions Criticality Noted Date [...] Dyslipidemia 11/23/2021 Atherosclerotic heart diseas e of [place] coronary artery without angina pectoris 11/23/2021 Stage [...] to complete this topic [facility] Care Teams Survey Research Manager Relationship Specialty [place] [address] [address] PCP - General General Surgery 07/21/21 Michele Sweeney MD Consulting Physician Internal Medicine 05/07/18
--- OUTSIDE RECORDS SUMMARY | 2025-02-16 10:28 | XMS_ITS | Encounter Summary ---
Author Organization [facility] Address [address] [place] [address] Phone Care Team Providers Care Neurodiagnostic Technician Name Role Phone Michele Sweeney MD Unavailable [phone] Yash Nava MD Primary Care Provider [phone] Reason for Visit * Reason Comments Medication Refill Encounter Details Date Type Department Care Team (Late st Contact Info) Description 09/25/2023 Refill [facility] [address] [address] Luis Guerrero MD [address] [place] [phone] Medication Refill Social History Tobacco Use [...] request from pharmacy. Please fill if appropriate. HANDISE FOR RESALE PURCHASING AGENT documented in this encounter Plan of Treatment Not on file documented as of this encounter Visit Diagnoses Not on filedocumented in this encounter Additional Health Concerns Assessment Noted Time PHQ-9 Depression Total Score: 0 08/16/20 23 11:34 AM CDT documented as of this encounter Care Teams Neurodiagnostic Technician Relationship Specialty [place] [address] [place] [address] PCP - General General Surgery 07/21/21 Michele Sweeney MD Consulting Physician Internal Medicine 05/07/18 documented as of this encounter
--- OUTSIDE RECORDS SUMMARY | 2025-02-16 10:28 | XMS_ITS | Patient Health Record ---
Author Organization [facility] Address [address] [place], [place] [address] Care Team Providers Care Field Account Manager Name Role Phone SUNITHA GILLESPIE Unavailable [phone] Answer, Declined Unavailable Unavailable Reason For Referral No Information Medications Medication SIG (Take, Route, Frequency, Duration) Notes Start Date End Date Status hydrALAZINE HCl Acti ve Aspirin 81 Active Ferrous Sulfate Acti ve Warfarin Sodium Acti ve Fenofibrate Active Metoprolol Succinate Active predniSONE Active Isosorbide Mononitrate ER Active Vital Signs Height-cm 177.8 cm 04/10/2024 Weight-kg 83.91 kg 04/10/2024 Height 70 in 04/10/2024 Weight 185 lbs 04/10/2024 BMI 26.54 kg/m2 04/10/2024 Encounters Encounter Location Date Provider Diagnosis [facility] [place] [address] [place], [place] [id number] 04/10/2024 SUNITHA GILLESPIE Fungal infection of nail [...] Insured Coverage Start Date Coverage End Date [facility] [address] [address] [place] [id number] Binu Adorno Self - patient is the insured
--- OUTSIDE RECORDS SUMMARY | 2025-02-16 10:28 | XMS_ITS | Clinical Summary ---
Author Organization [facility] Address [address] [facility] [place] [address] Care Team Providers Care Applications Programmer Analyst Name Role Phone Adonis Estrada MD Unavailable [phone] Kev Nelson MD Primary Care Provider [phone] Source Comments [facility],non-owned Affiliates and Associated Physician Practices is amultiple site organization consisting of ambulatory clinics and hospital sitesin [place], [place], [place] and [place]. This disclosure is being madepursuant to the Care Everywhere program and may not contain all information available regarding this patient. Last updated 18.[facility] [employer] Allergies Active Allergy Reactions Criticality Noted Date Comments Oxycodone Other Medium 03/19/2023 Pt with history of altered mental status and hallucinations with oxycodone Medications * Be aware that medications may not be up to date on this document. Alwaysverify current medications with the patient. pitavastatin (LIVALO) 2 MG tablet Take 2 mg by mouth once daily. Active ezetimibe (ZETIA) 10 MG tablet Take 10 mg by mouth at bedtime. Active fenofibrate (TRICOR) 145 MG tablet Take by mouth at bedtime. Active multivitamin daily (THERAGRAN) tablet Take 1 Tab by mouth daily with food. Active tetrahydrozoli ne (VISINE) 0.05 % ophthalmic solution Instill 1 Drop into both eyes 4 times daily as needed. Active benzonatate (TESSALON) 100 MG capsule Take 1 Cap by mouth 3 times daily as needed for Cough. 30 Cap 0 2 Active acetaminophen (TYLENOL) 325 MG tablet Take 2 Tabs by mouth every 4 hours as needed. Maximum allowable Acetaminophen amount = 4 Grams (4000 mg) / 24 hours. 2 Active metoprolol succinate XL 24hr (TOPROL XL) 25 MG tablet Take 25 mg by mouth 2 times daily. 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 Not hard at all 03/14/2023 [facility] - Occupational [...] at Not on file Legal Sex Male 1:51 PM PROPOSITION PLAYER Gender Identity Not on file Sexual Orientation [...] 2024 08/01/2022, 10/11/2021, 01/07/2021, Additional history exists DEPRESSION SCREENING 10/29/2024 MEDICARE AWV CALENDAR YEAR 2024 INFLUENZA VACCINE (Season Ended) 2025 08/01/2022, 07/11/2021, 07/14/2020, Additional history exists DTAP/TDAP/TD VACCINES (2 - Td or Tdap) [...] age to complete this topic Insurance MEDICARE [facility] MANAGED MEDICARE ADV Advance Directives Documents on File Type Date Recorded Patient Opener Tender Expl anation Adv Directive/Living Will/POA 04/04/2023 2:26 [...] 6:19 PM 06/14/2012 2:48 PM Care Teams Applications Programmer Analyst Relationship Specialty Start Date End Date Kev Nelson MD PCP - General 07/02/12 Adonis Estrada MD Orthopedic Surgery 03/14/12
--- OUTSIDE RECORDS SUMMARY | 2025-02-16 10:29 | XMS_ITS | Referral Summary ---
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 MEDICARE Address: [address] [address] [facility] MEDICARE ADVANTAGE [facility] MED[facility] Address: [address] [address] [place] [address] [place] [phone] [facility] MEDICARE ADVANTAGE [facility] MEDIC[facility] Address: [address] [address] [place] [address] Care Teams Breakfast Bar Attendant Relationship Specialty Start Date End Date Tre Hyde MD [address] [place] [address] PCP - General Family Medicine 02/08/23 Fransisco Torres DO [address] [place] [address] Referring Physician Family Medicine 11/27/24
--- OUTSIDE RECORDS SUMMARY | 2025-02-16 10:29 | XMS_ITS | Clinical Summary ---
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 MEDICARE Address: [address] [address] [place] [address] MEDICARE [address] [facility] MEDICARE Address: [address] [address] [place] [id number] [address] [facility] MEDICARE Address: [address] [address] [place] [address] Care Teams Fixer Supervisor Relationship Specialty Start Date End Date Tre Hyde MD [address] [facility] [address] [place] [address] PCP - General Family Medicine 02/08/23 Fransisco Torres DO [address] [place] [address] Referring Physician Family Medicine 11/27/24
--- OUTSIDE RECORDS SUMMARY | 2025-02-16 10:29 | XMS_ITS ---
Author Organization [facility] Address [address] [place], [place] [address] Care Team Providers Care Imagery Analyst Name Role Phone SUNITHA MACIAS Unavailable [phone] Answer, Declined Unavailable Unavailable REASON FOR VISIT L G toenail coming off, painful Medications Medication SIG (Take, Route, Frequency, Duration) Notes Start Date End Date Status hydrALAZINE HCl Acti ve Fenofibrate Active Metoprolol Succinate Active predniSONE Active Isosorbide Mononitrate ER Active Aspirin 81 Active Ferrous Sulfate Acti ve Warfarin Sodium Acti ve Vital Signs Height 70 in 04/10/2024 Weight 185 lbs 04/10/2024 BMI 26.54 kg/m2 04/10/2024 Height-cm 177.8 cm 04/10/2024 Weight-kg 83.91 kg 04/10/2024 Encounters Encounter Location Date Provider Diagnosis [facility] [address] [place], [place] [id number] 04/10/2024 SUNITHA MACIAS Fungal infection of nail [...] * Pippa ADORNOB:1935 ( 89 yo M)Acc No.[id number]:04/10/2024 Progress Notes Patient: Binu JOHN Provider: Traci Macias DPM :1935 A ge:88 Y S ex:Male Date:04/10/2024 Address:[address] [place], [place] [address] Subjective: * Chief Complaints: * L G [...] Isosorbide Mononitrate ER predniSONE Metoprolol Succinate Fenofibrate Medication List reviewed and reconciled with the patientTaking Warfarin Sodium Taking Ferrous Sulfate Taking Aspirin 81 Taking hydrALAZINE HCl Taking Isosorbide Mononitrate ER Taking predniSONE Taking Metoprolol Succinate Taking Fenofibrate Medication List reviewed and reconciled with the patient Objective: * Vitals: S hoe Size: 10.5, [...] Codes: * Billing Information: * Visit Code: 04324 Office Visit, New Pt., Level 3. * Procedure Codes: * Sign off status: Completed true * Provider: Traci Macias DPM Date: 0 04/10/2024 Generated for Erna brown/Leonela/Rulaitting on: 0 02/16/2025 10:28 AM CDT History and Physical Notes * HPI [...]
[2025-02-16 10:47] LABS: Anion Gap 7 mmol/L (4-12); Blood Urea Nitrogen 51 mg/dL (9-20); Calcium 8.6 mg/dL (8.4-10.2); Carbon Dioxide 27 mmol/L (22-30); Chloride 105 mmol/L (98-107); Estimated Glomerular Filt Rate 34; Glucose 87 mg/dL (65-110); Potassium 4.3 mmol/L (3.4-5.0); Sodium 139 mmol/L (137-145)
[2025-02-16 11:52] LABS: Folic Acid > 20.0 ng/mL (2.76->20)
== END 2025-02-16 09:28 | disposition home or self-care (01) ==
LOC: ANHLAB 09:28
PROVIDERS: PCP Student in an Organized Health Care Education/Training Program; Visit Provider Internal Medicine Hematology & Oncology
DX: D64.9 Anemia, unspecified (principal)
CPT/HCPCS: 36415; 80048; 82607; 82746; 85025

== ENCOUNTER 2025-05-15 20:40 | Emergency (ER) | payer MEDICARE, SELFPAY ==
--- NOTE | ~2025-05-15 | XR_ITS ---
XR hand RT 2V 05/16/2025 00:24 Indication: Hand injury Procedure: 2 views right hand Comparison: No prior studies for comparison. 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 No acute fracture or traumatic malalignment . Osteopenia. There are loose bodies adjacent to the first interphalangeal joint. Impression: 1: No acute fracture. Reviewed, dictated and finalized at location A. Impression: 1: No acute fracture.
--- NOTE | ~2025-05-15 | XR_ITS ---
EXAMINATION: XR chest 2V Exam Date/Time: 05/15/2025 22:19 CDT HISTORY: fall rib pain Comparison: X-ray chest and CTPA 08/03/2023. RESULT: Lines, tubes, and devices: Intact sternotomy wires. Lungs and pleura: Biapical pleural scarring, greater in the right apex. Left pleural calcifications. Peripheral and basilar reticular and groundglass opacities, worse in the left lung. Bilateral costop hrenic angle blunting. Cardiomediastinal silhouette: Stable. Other: No acute osseous or upper abdominal finding. IMPRESSION: No focal consolidation or pneumothorax. 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 Small bilateral pleural effusions versus chronic pleural scarring. Pleural calcifications as can be seen w ith asbestosis or prior hemothorax. Reviewed, dictated and finalized at location K. IMPRESSION: No focal consolidation or pneumothorax. Chronic interstitial changes and fibros is in the lungs. Small bilateral pleural effusions versus chronic pleural scarr ing. Pleural calcifications as can be seen with asbestosis or prior hemothorax.
--- OUTSIDE RECORDS SUMMARY | 2025-05-15 20:43 | XMS_ITS | Referral Summary ---
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
--- OUTSIDE RECORDS SUMMARY | 2025-05-15 20:43 | XMS_ITS | Clinical Summary ---
Author Organization [facility] [employer] Address [address] [facility] [place] [address] Care Team Providers Care Elevating Grader Operator Name Role Phone Adonis Estrada MD Unavailable [phone] Kev Nelson MD Primary Care Provider [phone] Source Comments [facility],non-owned Affiliates and Associated Physician Practices is amultiple site organization consisting of ambulatory clinics and hospital sitesin [place], [place], [place] and [place]. This disclosure is being madepursuant to the Care Everywhere program and may not contain all information available regarding this patient. Last updated 18.[facility] [employer] Allergies Active Allergy Reactions Criticality Noted Date [...] and heating? Not hard at all 03/14/2023 [facility] - Occupational Stress [...] place to sleep or slept in a [facility] (including now)? No 03/14/2023 Sex and Gender Information Value Date Recorded Sex Assigned at Not on file Legal Sex Male 1:51 PM FREIGHT SEPARATOR Gender Identity Not on file Sexual Orientation [...] 12:20 PM CDT Height 177.8 cm (5' 10) 03/23/2023 12:20 PM CDT Body Mass Index 28.41 03/23/2023 12:20 PM CDT Plan of Treatment Health Maintenance Due Date Last Done Comments Respiratory Syncytial Virus (RSV) Vaccine Pt: or over 60 yrs (1 - 1-dose 75+ series) 2011 COVID-19 VACCINE ( season) 2024 08/01/2022, 10/11/2021, 01/07/2021, Additional history exists DEPRESSION SCREENING 10/29/2024 MEDICARE AWV CALENDAR YEAR 2024 INFLUENZA VACCINE (#1) 2025 , 07/11/2021, 07/14/2020, Additional history exists DTAP/TDAP/TD VACCINES [...] age to complete this topic [place] [address] [facility] MANAGED MEDICARE ADV Advance Directives Documents on File Type Date Recorded Patient Nitroglycerin Neutralizer Expl anation Adv Directive/Living Will/POA 04/04/2023 2:26 [...] 6:19 PM 06/14/2012 2:48 PM Care Teams Elevating Grader Operator Relationship Specialty Start Date End Date Kev Nelson MD PCP - General 07/02/12 Adonis Estrada MD Orthopedic Surgery 03/14/12
--- OUTSIDE RECORDS SUMMARY | 2025-05-15 20:43 | XMS_ITS | Encounter Summary ---
Author Organization [facility] Address 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 [place] [address] [place] [address] [address] Yovany Neves MD [address] [facility] [address] [place] [address] documented as of this encounter Visit Diagnoses Not on filedocumented in this encounter Care Teams Sealant Mixer Relationship Specialty Start Date End Date Fransisco Torres DO [address] [place] [address] PCP - General Family Practice 10/16/23 documented as of this encounter
--- OUTSIDE RECORDS SUMMARY | 2025-05-15 20:43 | XMS_ITS | Clinical Summary ---
Author Organization [facility] Zachminh rice [facility] Address [address] [facility] [place] [address] Care Team Providers Care Glue Spreader Name Role Phone Fransisco Torres Primary Care [...] Encounters Date Type Department Care Team Description 05/13/2025 External Device Data ST[facility] ABSTRACTION Provider, Abstract 05/13/2025 External Device Data STL ABSTRACTION Provider, Abstract 05/13/2025 External Device Data ST[facility] ABSTRACTION Provider, Abstract 05/12/2025 External Device Data ST[facility] ABSTRACTION Provider, Abstract 04/14/2025 External Device Data STL ABSTRACTION Provider, Abstract 03/25/2025 10:00 AM CDT Office Visit [facility] Oncology and Hematology [facility] [address] [place] [address] Yovany Neves MD Acquired hemolytic anemia (CMS/HCC) (Primary Dx); Chronic anemia 03/24/2025 External Device Data STL ABSTRACTION Provider, Abstract 03/19/2025 External Device Data STL ABSTRACTION Provider, Abstract 03/18/2025 External Device Data STL ABSTRACTION Provider, Abstract 03/17/2025 External Device Data STL ABSTRACTION Provider, Abstract 02/17/2025 10:30 AM CDT Office Visit [facility] Oncology [facility] Hematology [facility] [address] [place] [address] Jaqueline Boone MD Acquired hemolytic anemia (CMS/HCC) (Primary Dx) 02/16/2025 Orders Only [facility] Oncology and Hematology [facility] [address] [place] [address] Yovany Neves MD from Last 3 Months [...] on file 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 Gender Identity Not on file Sexual Orientation Not on file Last Filed Vital Signs Vital Sign Reading Time Taken Comments Blood Pressure 130/79 03/25/2025 9:57 AM CDT Pulse 74 03/25/2025 9:57 AM CDT Temperature 35.9 C (96.6 F) 03/25/2025 9:57 AM CDT Respiratory Rate 15 03/25/2025 9:57 AM CDT Oxygen Saturation 93% 03/25/2025 9:57 AM CDT Inhaled Oxygen Concentration - - Weight 85.5 kg (188 lb 6.4 oz) 03/25/2025 9:57 A M CDT Height 177.8 cm (5' 10) 10/16/2023 11:09 AM CONTROL ROOM SUPERVISOR Body Mass Index 27.03 10/16/2023 11:09 AM CONTROL ROOM SUPERVISOR Plan of Treatment Upcoming Encounters Date Type Department Care Team (Late st Contact Info) Description 10/01/2025 10:15 AM CONTROL ROOM SUPERVISOR Office Visit [facility] Oncology and H[facility]ology [place] [address] [place] [address] [facility] [address] [place] [address] Yovany Neves MD [address] [facility] [address] [place] [address] Health Maintenance Due Date Last Done Comments RSV VACCINE (60+ or ) (1 - 1-dose 75+ series) 2011 Medicare [place] ([place]) Preventative Visit/Annual Wellness Visit 10/29/2024 01/29/2023 COVID-19 Vaccine (2023-2 5 season) 2024 07/02/2024, 08/01/2022, 10/11/2021, Additional history exists INFLUENZA VACCINE (#1) 2025 , 07/27/2023, 06/27/2023, Additional history exists DTAP/TDAP/TD VACCINES (3 - T d or Tdap) 01/28/2034 01/29/2024, 11/23/2015 PNEUMOCOCCAL VACCINE 50+ YEARS Completed 0 07/02/2024, 07/14/2020, 11/05/2019, Additional history exists ZOSTER VACCINE Completed 07/02/2024, 10/30, 09/13/2021, Additional history exists Procedures Procedure Name Priority Date/Time Associated Diagnosis Comments IRON, TIBC, AND PERCENT SATURATION Routine 03/19/2025 2:55 PM CDT Acquired hemolytic anemia (CMS/HCC) COMPREHENSIVE METABOLIC PANEL Routine 03/19/2025 2:55 PM CDT Acquired hemolytic anemia (CMS/HCC) CBC WITH DIFFERENTIAL Stat 03/19/2025 2:55 PM CDT Acquired hemolytic anemia (CMS/HCC) BASIC METABOLIC PANEL Routine 02/16/2025 3:14 PM CDT from Last 3 Months Results * (ABNORMAL) IRON, TIBC, AND PERCENT SATURATION (03/19/2025 2:55 PM CDT) IRON 47(L) 50 - 180 mcg/dL [facility] TIBC 198(L) 250 - 425 mcg/dL (calc) [facility] IRON % SATURATION 24 20 - 48 % (calc) [facility] Comment: Test Performed at: [facility] [address] [place] [address] Duane Leal MD Blood 03/19/2025 2:55 PM CDT 03/19/2025 2:58 PM CDT Jaqueline Boone MD CHEMISTRY ORDERABLES Final Result [facility] [phone] [facility] [address] [place] [address] * (ABNORMAL) CBC WITH DIFFERENTIAL (03/19/2025 2:55 PM CDT) Pathologist [facility] WBC 5.8 3.8 - 10.8 Thousand/u L [facility] RBC 3.61(L) 4.20 - 5.80 Million/uL [facility] HEMOGLOBIN 11.6(L) 13.2 - 17.1 g/dL [facility] HEMATOCRIT 36.1(L) 38.5 - 50.0 % [facility] MCV 100.0 80.0 - 100.0 fL [facility] MCH 32.1 27.0 - 33.0 pg [facility] MCHC 32.1 32.0 - 36.0 g/dL [facility] Comment: For adults, a slight decrease in the calculated MCHC value (in the range of 30 to 32 g/dL) is most likely not clinically significant; however, it should be interpreted with caution in correlation with other red cell parameters and the patient's clinical condition. RDW 12.6 11.0 - 15.0 % [facility] PLATELETS 194 140 - 400 Thousand/u L [facility] MPV 10.6 7.5 - 12.5 fL [facility] NEUTROPHIL ABSOLUTE 3,932 1,500 - 7,800 cells/uL [facility] LYMPHOCYTE ABSOLUTE 1,311 850 - 3,900 cells/uL [facility] MONOCYTE ABSOLUTE 464 200 - 950 cells/uL [facility] EOSINOPHIL ABSOLUTE 81 15 - 500 cells/uL [facility] BASOPHILS ABSOLUTE 12 0 - 200 cells/uL [facility] NEUTROPHIL 67.8 % [facility] LYMPHOCYTES 22.6 % [facility] MONOCYTE 8.0 % [facility] EOSINOPHILS 1.4 % [facility] BASOPHILS 0.2 % [facility] Comment: Test Performed at: [facility] [address] [address] [address] Duane Leal MD Blood 03/19/2025 2:55 PM CDT 03/19/2025 2:58 PM CDT us Jaqueline Boone MD HEMATOLOGY ORDERABLES Steff wilson Result [facility] [phone] [facility] [address] [place] [phone] * (ABNORMAL) COMPREHENSIVE METABOLIC PANEL (03/19/2025 2:55 PM CDT) GLUCOSE 103(H) 65 - 99 mg/dL [facility] Comment: Fasting reference interval For someone without known diabetes, a glucose value between 100 and 125 mg/dL is consistent with prediabetes and should be confirmed with a follow-up test. BUN 59(H) 7 - 25 mg/dL [facility] CREATININE 2.34(H) 0.70 - 1.22 mg/dL [facility] GFR 26(L) > OR = 60 mL/min/1.7 3m2 [facility] BUN/CREAT RATIO 25(H) 6 - 22 (calc) [facility] SODIUM 135 135 - 146 mmol/L [facility] POTASSIUM 4.8 3.5 - 5.3 mmol/L [facility] CHLORIDE 98 98 - 110 mmol/L [facility] CO2 29 20 - 32 mmol/L [facility] CALCIUM 8.8 8.6 - 10.3 mg/dL [facility] TOTAL PROTEIN 6.6 6.1 - 8.1 g/dL [facility] ALBUMIN 4.0 3.6 - 5.1 g/dL [facility] GLOBULIN 2.6 1.9 - 3.7 g/dL (calc) [facility] ALBUMIN/GLOBULIN RATIO 1.5 1.0 - 2.5 (calc) [facility] BILIRUBIN TOTAL 0.6 0.2 - 1.2 mg/dL [facility] ALKALINE PHOSPHATASE 87 35 - 144 U/L [facility] AST 35 10 - 35 U/L [facility] ALT 30 9 - 46 U/L [facility] Comment: Test Performed at: [facility] [address] [address] [place] [address] Duane Leal MD Blood 03/19/2025 2:55 PM CDT 03/19/2025 2:58 PM CDT us Jaqueline Boone MD CHEMISTRY ORDERABLES Final Result [facility] [phone] [facility] [address] [address] [place] [address] * BASIC METABOLIC PANEL (02/16/2025 3:14 PM CDT) Blood us Yovany Neves MD CHEMISTRY ORDERABLES Final Resu lt from Last 3 Months Insurance [facility] [id number] Care Teams Glue Spreader Relationship Specialty Start Date End Date Fransisco Torres DO [address] [place] [phone] PCP - General Family Practice 10/16/23
--- OUTSIDE RECORDS SUMMARY | 2025-05-15 20:43 | XMS_ITS | Data Portability ---
Author Organization [facility] [employer] [facility], [employer] Address [address] [place] [address] Care Team Providers Care Vegetable Vendor Name Role Phone ZITA GAGNON Store Deli Manager BRANDIE ALICIA Medical Oncologist Assessment Encounter Date [...] By Organization Details Last Modified Time 07/12/2021 [id number] hypothyroidism: care instructions [email or web address] Not available 07/12/2021 16:52:05 Reason for Referral None Reported. Problems Name Problem SNOMED Code Status Onset Date Resolution Date Notes Provider Name and Address Organization Details Recorded Time Hypothyroidism 07764798 Active 2020 Bre Rosales, TUMBLER MACHINE OPERATOR-BC, PMHNP-BC [address] [place], [address], [facility] [place] [facility] 16:51:20 Problem Notes None recorded. 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 [place] [facility] 07/08/2021 15:58:21 repair of hole of macula lutea completed [place] [facility] 07/08/2021 15:59:41 Cataract Surgery completed [place] [facility] 07/08/2021 15:59:56 Imaging Results None [...] blood by Pulse oximetry Body temperature Systolic And Diastolic Provider Name and Address Organization Details Last Updated DateTime 83 /min 20 /min 98 % 98 % 98.4 [degF] 130/80 mm[Hg] Chrissie Savanna [facility] Care 15:02:21 Social History Question Answer Notes LastModified by Organizat ion Details LastModified Time Tobacco Smoking Status Unknown If Ever Smoked Bre Rosales, TUMBLER MACHINE OPERATOR-BC, PMHNP-BC [address] [place], [address], [facility] 07/12/2021 16:47:34 Do You Have An Advance Directive? Yes [email or web address] Information not available 07/12/2021 Are You Blind Or Do You Have Difficulty Seeing? No Information not available 07/12/2021 What Is Your Level Of Caffeine Consumption? Occasional [email or web address] Information not available 07/12/2021 What Type Of Submersible Pilot Do You Use? None [email or web address] Information not available 07/12/2021 Are You Deaf Or Do You Have Serious Difficulty Hearing? No Information not available 07/12/2021 What Type Of Diet Are You Following? REGULAR [email or web address] Information not available 07/12/2021 Have There Been Any Changes To Your Family Or Social Situation? Yes [email or web address] Information no t available 07/12/2021 Are There Any Guns Present In Your Home? No [email or web address] Information not available 07/12/2021 Do You Use Insect Repellent Routinely? Yes [email or web address] Information not available 07/12/2021 Do You Have A Medical Power Of Pressing Machine Tender? Yes [email or web address] Information not available 07/12/2021 What Was The Date Of Your Most Recent Tobacco Screening? 07/12/2021 [email or web address] Information not available 07/12/2021 Do You Have Any Pets? No Information not available 07/12/2021 What Is Your Relationship Status? [email or web address] Information not available 07/12/2021 Do You Use Your Seat Belt Or Car Seat Routinely? Yes Information not available 07/12/2021 Do You Have Smoke And Carbon Monoxide Detectors In Your Home? Yes Information not available 07/12/2021 Are You Passively Exposed To Smoke? No [email or web address] Information no t available 07/12/2021 Do You Use Sunscreen Routinely? Yes Information not available 07/12/2021 Do You Have Difficulty Walking Or Climbing Stairs? No Information not available 07/12/2021 Are You Currently In School? No [email or web address] Information not available 07/12/2021 Do You Have Any Dietary Restrictions? No [email or web address] Information not available 07/12/2021 Sex: Male Functional Status Question Answer Note LastModified by Organ[employer]al do [employer] ion Details LastModified Time Do you use any illicit or recreational drugs? No [email or web address] Information not available 07/12/2021 Do you or have you ever used any other forms of tobacco or nicotine? No [email or web address] Information not available 07/12/2021 What is your level of alcohol consumption? None [email or web address] Information not available 07/12/2021 Are you currently employed? No [email or web address] Information not available 07/12/2021 Do you have transportation difficulties? No Information not available 07/12/2021 Are you able to walk? YESWOREST [email or web address] Information not available 07/12/2021 Do you have difficulty doing errands alone? No [email or web address] Information not available 07/12/2021 Are you able to care for yourself? Yes [email or web address] Information n ot available 07/12/2021 Do you have difficulty dressing or bathing? No [email or web address] Information not available 07/12/2021 What is your exercise level? Occasional [email or web address] Information not available 07/12/2021 Mental Status Question Answer Note LastModified by Organizat ion Details LastModified Time Do you feel stressed (tense, restless, nervous, or anxious, or unable to sleep at night)? [id number] [email or web address] Information not available 07/12/2021 Do you have difficulty concentrating, remembering or making decisions? No Information no t available 07/12/2021 Family History Nothing Reported. Medical History Condition Response Atherosclerosis of inupiat co ronary artery of [place]upiat heart without angina pectoris Y Osteoarthritis Y Hospitalizations Y Anemia Y Cataracts Y Endocrine Diseases / Disorders Y Hyperlipidemia Y Neurological Diseases / Disorders Y Past Encounters Encounter ID Performer Location Encounter Start Date Encounter Closed Date Diagnosis/Indication Diagnosis SNOMED-CT Code Diagnosis ICD10 Code Diagnosis Note [id number] BROOKLYN Valladares, BRAULIO Main Office [address] [place] [address] 07/12/2021 06:38:23 07/12/2021 16:56:11 Hypothyroidism 47442702 E03.9 Health Concerns Section Related Observation LastModified by Organization Detai ls LastModified Time None Recorded Concern Status LastModified by Organization Details LastModified Time None Recorded Advance Directives Directive Y: Payers Insurance Date Sequence Insurance Name Policy Number Policy Schroeder Covered Member ID Schroeder Member ID Guarantor Name 07/30/2021 2 UNSPECIFIED REMIT PAYOR Binu Adorno 07/07/2021 1 [place] Binu Adorno [id number] Binu Adorno Notes Date Note Type [...] palpitations Treatment:taking medication as directed BROOKLYN Valladares, PMHNP-SULEIMAN [address] [place], [address], [facility] 07/12/2021 16:52:31
--- OUTSIDE RECORDS SUMMARY | 2025-05-15 20:43 | XMS_ITS | Encounter Summary ---
Author Organization [facility] Address [address] [place] [address] Care Team Providers Care Stamping Bench Die Maker Name Role Phone Fransisco Torres DO Primary [...] on file Legal Sex Male 2:21 PM PRODUCT INSPECTION SUPERVISOR Gender Identity Not on file Sexual Orientation Not on file documented as of this encounter Plan of Treatment Upcoming Encounters Date Type Department Care Team (Late st Contact Info) Description 10/01/2025 10:15 AM PRODUCT INSPECTION SUPERVISOR Office Visit [facility] [place] [address] [place] [address] [address] Yovany Neves MD [address] [facility] [address] [place] [address] documented as of this encounter Visit Diagnoses Not on filedocumented in this encounter Care Teams Stamping Bench Die Maker Relationship Specialty Start Date End Date Fransisco Torres DO [address] [place] [address] PCP - General Family Practice 10/16/23 documented as of this encounter
--- OUTSIDE RECORDS SUMMARY | 2025-05-15 20:43 | XMS_ITS | Encounter Summary ---
Author Organization [facility] Address [address] [place] [address] Phone Care Team Providers Care Strike Plate Attacher Name Role Phone Michele Sweeney MD Unavailable [phone] Yash Nava MD Primary Care Provider [phone] Reason for Visit * Reason Comments Medication Refill Encounter Details Date Type Department Care Team (Late st Contact Info) Description 09/25/2023 Refill [facility] [address] [address] Luis Guerrero MD [address] [place] [address] Medication Refill Social History Tobacco Use [...] request from pharmacy. Please fill if appropriate. PTION INTERVIEWER documented in this encounter Plan of Treatment Not on file documented as of this encounter Visit Diagnoses Not on filedocumented in this encounter Additional Health Concerns Assessment Noted Time PHQ-9 Depression Total Score: 0 08/16/20 23 11:34 AM CDT documented as of this encounter Care Teams Strike Plate Attacher Relationship Specialty [place] [address] [place] [address] PCP - General General Surgery 07/21/21 Michele Sweeney MD Consulting Physician Internal Medicine 05/07/18 documented as of this encounter
--- OUTSIDE RECORDS SUMMARY | 2025-05-15 20:43 | XMS_ITS | Continuity of Care Document ---
Author Organization [employer] [facility] Address [address] [facility] [address] [place] [address] Phone Care Team Providers Care Machinist Outside Name Role Phone Leal Sundar ENAMORADO Unavailable [...] Active prednisone 5 mg tablet - Active Aspirin Low Dose 81 mg [...] Check Refraction Eye Exam & Treatment Vision [facility] Frames Purchases BF Plastic Sphcyl [place] To +/-4d .12-2d Progressive Lens Per Lens Eye Exam & Treatment Refraction Eye Exam, New Patient Refraction Vision Svcs Frames Purchases BF Plastic Sphcyl [place] To +/-4d .12-2d Progressive Lens Per Lens Advance Directives Directive Yes / No Effective Date File Name No Information Encounters Encounter Description Practice Location Reason(s) For Visit Diagnoses Date Provider Providers Copied on Encounter Office/outpa tient Visit, Est [facility], [address] [place] [address] [address], [place], [place], [id number], tel:[phone] SEC Elisa Mendoza Decreased vision (chief complaint) Macular cyst, hole, or pseudohole, right eye 6 Mel Kwok. [address] [place] [address], [id number] , . tel: [phone] Referring Provider: Sundar Mcrae, [address] [place] [address], [address] . tel:[phone] [facility], [address], [place], [place], [id number], [place] tel:[phone] SEC Elisa Mendoza Rx Check (chief complaint) Presbyopia 5 Mel Kwok. [address] [place] [address], [id number] , [place]. tel: [phone] Referring Provider: Sundar Mcrae, [address], [address] . tel:[phone] [facility], [address] [place] [address] [address], [place], [place], [id number], [place] tel:[phone] SEC Elisa Mendoza complete exam (chief complaint) PresbyopiaNuclear sclerotic cataract, bilateral 5 Mel Kwok. [address], [id number] , . tel: [phone] Referring Provider: Sundar Mcrae, [address] [address], [place], [address] . tel:[phone] [facility], [address], [place], [place], [id number], [place] tel:[phone] SEC Elisa Mendoza No Information 5 [employer] [address] [facility], [address] [place] [address], [id number] , [place]. tel: [phone] Referring Provider: Tomasz Simons, [address], [place], [address] . tel:[phone] sulting Provider: Tomasz Simons [address], [place], [address] . tel:[phone] [facility], [address], [place], [place], [id number], [place] tel:[phone] SEC Elisa Mendoza No Information 5 Mel Kwok. [address] [facility], [address] [place] [address], [id number] , [place]. tel: [phone] [facility], [address], [place], [place], [id number], [place] tel:[phone] SEC Elisa Mendoza Complete Exam (chief complaint) HYPERMETROPIASENIL E NUCLEAR CATARACT 4 Mel Kwok. [address] [facility], [address], [place], [place], [address] , [place]. tel: [phone] Referring Provider: Sundar Mcrae, [address] [facility] Suite [facility], [place], [address] . tel:[phone] [facility], [address], [place], [place], [id number], [place] tel:[phone] SEC Elisa Mendoza HYPERMETROPIASENIL E NUCLEAR CATARACT 3 Mel Kwok. [address] [facility], [address], [id number] , . tel: [phone] [facility], [id number] [place] [address] [address], [place], [place], [id number], tel:[phone] SEC Elisa Mendoza No Information 3 [employer]. [address] [facility], [address], [id number] , . tel: [phone] Referring Provider: Sundar Mcrae, [address] [place] [address], [address] . [phone] sulting Provider: Tomasz Simons, [address] , [place], [address] . tel:[phone] [facility], [address] [place] [address] [address] [facility], [place], [place], [id number], tel:[phone] SEC Elisa Mendoza No Information 3 Mle Kwok. [address] [place] [address], [address], [id number] , . tel: [phone] Family History Family Member Type Diagnosis Age At Onset No Information Payers Payer name Insurance type Covered alliance party ID Reinaldoa veronica(s) [place] [id number] [address] [id number] Social History Type Description Quantity Date Captured [...]
--- OUTSIDE RECORDS SUMMARY | 2025-05-15 20:43 | XMS_ITS | Clinical Summary ---
Author Organization [facility] Address [address], [facility] [address] [place] [address] Phone Care Team Providers Care Wood Calker Name Role Phone Michele Sweeney MD Unavailable [phone] Yash Nava MD Primary Care Provider [phone] Allergies Active Allergy Reactions Criticality Noted Date [...] Dyslipidemia 11/23/2021 Atherosclerotic heart diseas e of [place] coronary artery without angina pectoris 11/23/2021 Stage [...] 11:36 AM CDT Height 177.8 cm (5' 10) 08/16/2023 11:36 AM CDT Body Mass Index 26.11 08/16/2023 11:36 AM CDT Plan of Treatment Health Maintenance Due Date Last Done Comments Hepatitis C Virus (HCV) Screening 1935 Respiratory Syncytial Virus (RSV) Immunization (Adult) (1 - 1-dose 75+ series) 2011 SARS-COV-2 Immunization ( season) 2024 08/01/2022, 10/11/2021, 01/07/2021, Additional history exists Influenza Immunization (#1) 2025 0906/2023, 06/27/2023, 08/01/2022, Additional history exists Td Immunization Every 10 Years (Adults With 1 Tdap) 01/28/2034 01/29/2024, 12/10/2023, 11/23/2015 Pneumococcal Immunization (50+ years) Completed 07/14/2020, 11/05/2019, 07/09/2018 Pneumococcal Immunization Combined Discontinued 07/14/2020, 11/05/2019, 07/09/2018 Zoster Immunization Completed 11/18/2021, 09/13/2021, 11/27/2012 DTaP/Tdap/Td Immunization Discontinued 2023, 12/10/2023, 11/23/2015 Hepatitis B Immunization Aged Out No longer eligible based on patient's age to complete this topic Human Papillomavirus (HPV) Immunization Aged Out No longer eligible based on patient's age to complete this topic Meningococcal Immunization (ACWY) Aged Out No longer eligible based on patient's age to complete this topic Rotavirus Immunization Aged Out No lo nger eligible based on patient's age to complete this [place] [address] [facility]IC[facility] Care Teams Wood Calker Relationship Specialty [place] [address] [address] PCP - General General Surgery 07/21/21 Michele Sweeney MD Consulting Physician Internal Medicine 05/07/18
--- OUTSIDE RECORDS SUMMARY | 2025-05-15 20:43 | XMS_ITS | Clinical Summary ---
Author Organization [facility] [place] Address 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 Gender Identity Not on file Sexual Orientation Not on file Obstetrics History Plan of Treatment Health Maintenance Due Date Last Done Comments Depression Screening 1936 Fall Risk Assessment 1936 Hepatitis B Screening 1954 Well Visit 65+ 2001 Covid-19 Vaccine (2023-2 5 season) 2024 08/01/2022, 10/11/2021, 01/07/2021, Additional history exists Influenza Vaccine (#1) 2025 , 08/01/2022, 07/11/2021, Additional history exists DTaP/Tdap/Td Vaccine (4 - Td or Tdap) 01/28/2034 01/29/2024, 12/10/2023, 11/23/2015 Pneumococcal vaccine 65+ Completed 020, 11/05/2019, 07/09/2018 Zoster Vaccine Completed 07/02/2024, 10/30, 09/13/2021, Additional history exists Insurance DR [address] [place] [phone] [facility] MEDICARE ADVANTAGE [place] [id number] [facility] MEDICARE ADVANTAGE [facility] MED[facility]ARE ADVANTAGE [place] [id number] Care Teams Crossbow Maker Relationship Specialty Start Date End Date Tre Hyde MD [address] [facility] [address] [place] [address] PCP - General Family Medicine 02/08/23 Fransisco Torres DO [address] [place] [address] Referring Physician Family Medicine 11/27/24
[2025-05-15 20:52] VITALS: BP 130/68; PULSE 70; RESP 16; TEMP 36.5; O2SAT 94
--- OUTSIDE RECORDS SUMMARY | 2025-05-16 00:10 | XMS_ITS | Clinical Summary ---
Author Organization [facility] Address [address], [facility] [address] [place] [address] Phone Care Team Providers Care Damper Worker Name Role Phone Michele Sweeney MD Unavailable [phone] Yash Nava MD Primary Care Provider [phone] Allergies Active Allergy Reactions Criticality Noted Date [...] Dyslipidemia 11/23/2021 Atherosclerotic heart diseas e of [place] coronary artery without angina pectoris 11/23/2021 Stage [...] [place] [address] [facility] Care Teams Damper Worker Relationship Specialty [place] [address] [address] PCP - General General Surgery 07/21/21 Michele Sweeney MD Consulting Physician Internal Medicine 05/07/18
--- OUTSIDE RECORDS SUMMARY | 2025-05-16 00:10 | XMS_ITS | Clinical Summary ---
Author Organization [facility] Zachminh rice [facility] Address [address] [place] [address] Care Team Providers Care Aircraft Instrument Tester Name Role Phone Fransisco Torres Primary Care [...] Abstract 03/25/2025 10:00 AM CDT Office Visit [facility] Oncology and Hematology [facility] [address] [place] [address] Yovany Neves MD Acquired hemolytic anemia (CMS/HCC) (Primary Dx); Chronic anemia 03/24/2025 External Device Data STL ABSTRACTION Provider, Abstract 03/19/2025 External Device Data STL ABSTRACTION Provider, Abstract 03/18/2025 External Device Data STL ABSTRACTION Provider, Abstract 03/17/2025 External Device Data STL ABSTRACTION Provider, Abstract 02/17/2025 10:30 AM CDT Office Visit [facility] Oncology [facility] Hematology [facility] [address] [place] [address] Jaqueline Boone MD Acquired hemolytic anemia (CMS/HCC) (Primary Dx) 02/16/2025 Orders Only [facility] Oncology and Hematology [facility] [address] [place] [address] Yovany Neves MD from Last 3 Months [...] on file 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 Gender Identity Not on file Sexual Orientation [...] 177.8 cm (5' 10) 10/16/2023 11:09 AM COMMERCIAL REAL ESTATE ATTORNEY Body Mass Index 27.03 10/16/2023 11:09 AM COMMERCIAL REAL ESTATE ATTORNEY Plan of Treatment Upcoming Encounters Date Type Department Care Team (Late st Contact Info) Description 10/01/2025 10:15 AM COMMERCIAL REAL ESTATE ATTORNEY Office Visit [facility] Oncology and Hematology - [place] [address] [place] [address] [facility] [address] [place] [address] Yovany Neves MD [address] [facility] [address] [place] [address] Health Maintenance Due Date Last Done Comments RSV VACCINE (60+ or ) (1 - 1-dose 75+ series) 2011 Medicare Advantage ([place]) Preventative Visit/Annual Wellness Visit 10/29/2024 01/29/2023 COVID-19 [...] [facility] Comment: Test Performed at: [facility] [address] [place] [address] Duane Leal MD Blood 03/19/2025 2:55 PM CDT 03/19/2025 2:58 PM CDT Jaqueline Boone MD CHEMISTRY ORDERABLES Final Result [facility] [phone] [facility] [address] [place] [address] * (ABNORMAL) CBC WITH DIFFERENTIAL (03/19/2025 2:55 PM CDT) Pathologist [facility] WBC 5.8 3.8 - 10.8 Thousand/u [...] [facility] Comment: Test Performed at: [facility] [address] [address] Duane Leal MD Blood 03/19/2025 2:55 PM CDT 03/19/2025 2:58 PM CDT us Jaqueline Boone MD HEMATOLOGY ORDERABLES Steff wilson Result [facility] [phone] [facility] [address] [address] * (ABNORMAL) COMPREHENSIVE METABOLIC PANEL (03/19/2025 2:55 [...] [facility] Comment: Test Performed at: [facility] [address] [address] Duane Leal MD Blood 03/19/2025 2:55 PM CDT 03/19/2025 2:58 PM CDT us Jaqueline Boone MD CHEMISTRY ORDERABLES Final Result [facility] [phone] [facility] [address] [address] * BASIC METABOLIC PANEL (02/16/2025 3:14 PM CDT) Blood us Yovany Neves MD CHEMISTRY ORDERABLES Final Resu lt from Last 3 Months Insurance [facility] [id number] Care Teams Aircraft Instrument Tester Relationship Specialty Start Date End Date Fransisco Torres DO [address] [place] [address] PCP - General Family Practice 10/16/23
--- OUTSIDE RECORDS SUMMARY | 2025-05-16 00:10 | XMS_ITS | Patient Health Record ---
Author Organization [facility] Address [address] [place], [place] [id number] Care Team Providers Care Air Deodorizer Servicer Name Role Phone SUNITHA GILLESPIE Unavailable [phone] Answer, Declined Unavailable Unavailable Reason For Referral No Information Medications Medication SIG (Take, Route, Frequency, Duration) Notes Start Date End Date Status hydrALAZINE HCl Acti ve Aspirin 81 Active Ferrous Sulfate Acti ve Warfarin Sodium Acti ve Fenofibrate Active Metoprolol Succinate Active predniSONE Active Isosorbide Mononitrate ER Active Plan Of Treatment No Information Insurance Providers Payer Name Payer Address Payer Phone Subscriber Number Group Number Insured Name Patient Relationship to Insured Coverage Start Date Coverage End Date [employer] [address] [address] [place] [address] [id number] Binu Adorno Self - patient is the insured
--- OUTSIDE RECORDS SUMMARY | 2025-05-16 00:10 | XMS_ITS | Continuity of Care Document ---
Author Organization [facility] Address [address] [facility] [address] [place] [address] Phone Care Team Providers Care Auto Design Checker Name Role Phone Leal Sundar ENAMORADO Unavailable [...] Check Refraction Eye Exam & Treatment [facility] Frames Purchases BF Plastic Sphcyl [place] To +/-4d .12-2d Progressive Lens Per Lens Eye Exam & Treatment Refraction Eye Exam, New Patient Refraction Vision [facility]vcs Frames Purchases BF Plastic Sphcyl [place] To +/-4d .12-2d Progressive Lens Per Lens Advance Directives Directive Yes / No Effective Date File Name No Information Encounters Encounter Description Practice Location Reason(s) For Visit Diagnoses Date Provider Providers Copied on Encounter Office/outpa tient Visit, Est [facility], [address] [place] [address] [address], [place], [place], [id number], tel:[phone] SEC Elisa Mendoza Decreased vision (chief complaint) Macular cyst, hole, or pseudohole, right eye 6 Mel Kwok. [address] [place] [address], [id number] , . tel: [phone] Referring Provider: Sundar Mcrae, [address] [place] [address], [address] . tel:[phone] [facility], [address], [place], [place], [id number], [place] tel:[phone] SEC Elisa Mendoza Rx Check (chief complaint) Presbyopia 5 Mel Kwok. [address] [place] [address], [id number] , [place]. tel: [phone] Referring Provider: Sundar Mcrae, [address], [address] . tel:[phone] [email or web address], [address] [place] [address] [address], [place], [place], [id number], [place] tel:[phone] SEC Elisa Mendoza complete exam (chief complaint) PresbyopiaNuclear sclerotic cataract, bilateral 5 Mel Kwok. [address], [id number] , . tel: [phone] Referring Provider: Sundar Mcrae, [address] [address], [place], [address] . tel:[phone] [facility], [address], [place], [place], [id number], [place] tel:[phone] SEC Elisa Mendoza No Information 5 [facility] [address] [facility], [address] [place] [address], [id number] , [place]. tel: [phone] Referring Provider: Tomasz Simons, [address], [place], [address] . tel:[phone] sulting Provider: Tomasz Simons [address], [place], [address] . tel:[phone] [facility], [address], [place], [place], [id number], [place] tel:[phone] SEC Elisa Mendoza No Information 5 Mel Kwok. [address] [facility], [address] [place] [address], [id number] , [place]. tel: [phone] [facility], [address], [place], [place], [id number], [place] tel:[phone] SEC Elisa Mendoza Complete Exam (chief complaint) HYPERMETROPIASENIL E NUCLEAR CATARACT 4 Mel Kwok. [address] [facility], [address], [place], [place], [id number] , [place]. tel: [phone] Referring Provider: Sundar Mcrae, [address] [facility] Suite [facility], [place], [address] . tel:[phone] [facility], [address], [place], [place], [id number], [place] tel:[phone] SEC Elisa Mendoza HYPERMETROPIASENIL E NUCLEAR CATARACT 3 Mel Kwok. [address] [facility], [address], [id number] , . tel: [phone] [facility], [address] [place] [address] [address], [place], [place], [id number], tel:[phone] SEC Elisa Mendoza No Information 3 [facility] [address] [facility], [address], [id number] , . tel: [phone] Referring Provider: Sundar Mcrae, [address] [place] [address], [address] . [phone] sulting Provider: Tomasz Simons, [address] , [place], [address] . tel:[phone] [facility], [address] [place] [address] [facility], [place], [place], [id number], tel:[phone] SEC Elisa Mendoza No Information 3 Mel Kwok. [address] [place] [address], [address], [id number] , . tel: [phone] Family History Family Member Type Diagnosis Age At Onset No Information Payers Payer name Insurance type Covered democrat ID Reinaldoa veronica(s) [place] [id number] [address] [id number] Social History Type Description Quantity Date Captured [...]
--- OUTSIDE RECORDS SUMMARY | 2025-05-16 00:10 | XMS_ITS | Encounter Summary ---
Author Organization [facility] Address [address] [place] [address] Phone Care Team Providers Care Curer Acid Drum Name Role Phone Michele Sweeney MD Unavailable [phone] Yash Nava MD Primary Care Provider [phone] Reason for Visit * Reason Comments Medication Refill Encounter Details Date Type Department Care Team (Late st Contact Info) Description 09/25/2023 Refill [facility] [address] [address] Luis Guerrero MD [address] [place] [address] Medication Refill Social History Tobacco Use [...] request from pharmacy. Please fill if appropriate. MOBILE CLUB TRAVEL COUNSELOR documented in this encounter Plan of Treatment Not on file documented as of this encounter Visit Diagnoses Not on filedocumented in this encounter Additional Health Concerns Assessment Noted Time PHQ-9 Depression Total Score: 0 08/16/20 23 11:34 AM CDT documented as of this encounter Care Teams Curer Acid Drum Relationship Specialty [place] [address] [place] [address] PCP - General General Surgery 07/21/21 Michele Sweeney MD Consulting Physician Internal Medicine 05/07/18 documented as of this encounter
--- OUTSIDE RECORDS SUMMARY | 2025-05-16 00:10 | XMS_ITS | Clinical Summary ---
Author Organization [facility] [employer] Address [address] [facility] [place] [address] Care Team Providers Care Fashion Director Party Plan Sales Name Role Phone Adonis Estrada MD Unavailable [phone] Kev Nelson MD Primary Care Provider [phone] Source Comments [facility],non-owned Affiliates and Associated Physician Practices is amultiple site organization consisting of ambulatory clinics and hospital sitesin [place], [place], [place] and [place]. This disclosure is being madepursuant to the Care Everywhere program and may not contain all information available regarding this patient. Last updated 18.[facility] [employer] Allergies Active Allergy Reactions Criticality Noted Date [...] and heating? Not hard at all 03/14/2023 [facility] - Occupational Stress [...] place to sleep or slept in a correction (including now)? 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
--- OUTSIDE RECORDS SUMMARY | 2025-05-16 00:10 | XMS_ITS | Encounter Summary ---
Author Organization [facility] Address 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 Gender Identity Not on file Sexual Orientation Not on file documented as of this encounter Plan of Treatment Upcoming Encounters Date Type Department Care Team (Late st Contact Info) Description 10/01/2025 10:15 AM OUTBOARD MOTOR MECHANIC Office Visit [facility] Oncology and Hematology [place] [address] [place] [address] [address] Yovany Neves MD [address] [facility] [address] [place] [address] documented as of this encounter Visit Diagnoses Not on filedocumented in this encounter Care Teams Traveling Repair Accountant Relationship Specialty Start Date End Date Fransisco Torres DO [address] [place] [address] PCP - General Family Practice 10/16/23 documented as of this encounter
--- OUTSIDE RECORDS SUMMARY | 2025-05-16 00:11 | XMS_ITS | Clinical Summary ---
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 Gender Identity Not on file Sexual Orientation [...] 09/13/2021, Additional history exists Insurance DR [address] [place] [id number] [facility] MEDICARE [facility] Address: [address] [address] [place] [id number] [facility] MEDICARE [facility] Address: [address] [address] [place] [address] [facility] MEDICARE [facility] MEDICARE Address: [address] [address] [place] [id number] Care Teams Fishing Reel Assembler Relationship Specialty Start Date End Date Tre Hyde MD [address] [facility] [address] [place] [address] PCP - General Family Medicine 02/08/23 Fransisco Torres DO [address] [place] [address] Referring Physician Family Medicine 11/27/24
--- OUTSIDE RECORDS SUMMARY | 2025-05-16 00:11 | XMS_ITS | Referral Summary ---
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
--- NOTE | 2025-05-16 00:15 | ED.FALL ---
HPI - Fall General Chief Complaint: Fall Stated Complaint: GLF, skin tear to hand, L rib pain, Time Seen by Provider: 05/15/25 23:37 History of Present Illness HPI Narrative: 89-year-old male presenting to the emergency department after [facility]. Patient is undergoing hospice care at the facility. He states he tripped on a blanket on the ground and landed onto his left side striking his chest on the ground as well as his right hand when he tried to catch himself. He sustained a superficial laceration. Did not lose consciousness and has been acting appropriately with normal mental status with any nausea or vomiting. Presents with family member at bedside. Patient's complain of some left-sided rib pain as well as a skin tear to his right hand with minor pain around the thumb. Tetanus is up-to-date. Patient is DNR, DNI, comfort measures only with hospice care. Related Data Home Medications ?Medication ?Instructions ?Recorded ?Confirmed ?Last Taken ?Type Adults Multivitamin 1 tablet PO DAILY 08/03/23 08/03/23 Unknown History aspirin 81 mg tablet,delayed 81 mg PO DAILY 08/03/23 08/03/23 Unknown History release fenofibrate nanocrystallized 145 145 mg PO DAILY 08/03/23 08/03/23 Unknown History mg tablet ferrous sulfate 325 mg (65 mg 325 mg PO DAILY 08/03/23 08/03/23 Unknown History iron) tablet folic acid 1 mg tablet 1 mg PO DAILY 08/03/23 08/03/23 Unknown History glucosamine-chondroitin 250 mg-200 1 tablet PO DAILY 08/03/23 08/03/23 Unknown History mg tablet (Osteo Bi-Flex) levothyroxine 150 mcg tablet 150 mcg PO DAILY 08/03/23 08/03/23 Unknown History metoprolol tartrate 25 mg tablet 25 mg PO DAILY 08/03/23 08/03/23 Unknown History pravastatin 40 mg tablet 40 mg PO HS 08/03/23 08/03/23 Unknown History prednisone 5 mg tablet 5 mg PO DAILY 08/03/23 08/03/23 Unknown History warfarin 5 mg tablet 5 mg PO DAILY 08/03/23 08/03/23 Unknown History Allergies Allergy/AdvReac Type Severity Reaction Status Date / Time colesevelam Allergy Unknown Verified 05/15/25 20:42 hydrocodone Allergy Unknown Verified 05/15/25 20:42 rosuvastatin Allergy Unknown Verified 05/15/25 20:42 Review of Systems Review of Systems: As reviewed above in [facility] Past Medical History Medical History Coronary artery disease Dyslipidemia Chronic anticoagulation Hypothyroidism Chronic kidney disease Autoimmune hemolytic anemia Hypertension Surgical History Surgical History History of mechanical aortic valve replacement History of right knee joint replacement Family History Family History Mother Heart disease Father Unknown family medical history Social History Social History Social History: Surrogate medical decision maker: Lui Adorno, son. Code status: Do not resuscitate. Smoking packs per day: 2 Smoking cigarettes per day: 40.0 Years smoked: 15 Smoking pack-years: 30.00 Smoking status: Former smoker Alcohol intake: unknown Substance use: never Lack of Transportation: No Lack of Food: Never True Current Housing: I Have Housing Concerned About Future Housing: No Difficulty Paying Gas/Electric Bills: No Difficulty Paying for Meds: No Currently Unemployed: No Education: Trade/Vocational Certificate Difficulty w/ Childcare or Family Care: No Spiritual care concerns: No Exam Narrative: GENERAL: [Well-appearing, well-nourished, and in no acute distress.] HEAD: [Normocephalic, atraumatic.] EYES: [PERRLA and EOMI.] ENT: Nares clear, no rhinorrhea or epistaxis. Mucous membranes moist. NECK: Supple. CHEST: Clear to auscultation without any respiratory distress or tachypnea, reproducible tenderness along the left lateral ribcage without any step-offs, deformities or crepitus. HEART: [Regular rate and rhythm]. No murmur heard. [Normal peripheral pulses.] ABDOMEN: [Soft, nondistended], [nontender], [No rigidity or guarding] EXTREMITIES: Superficial skin tear that/laceration to the base of the right thumb without any active bleeding or deep involvement. Full range of motion of the thumb and able to oppose each digit. No signs of traumatic injury on the other extremities, head, neck or back. SKIN: Warm, dry, no rash. NEURO: [No focal deficits]. Alert and oriented [x3.] PSYCH: [Normal mood and affect.] Course Vital Signs Vital signs: Vital Signs Temperature 36.5 C 05/15/25 20:52 Pulse Rate 70 05/15/25 20:52 Respiratory Rate 16 05/15/25 20:52 Blood Pressure 130/68 05/15/25 20:52 Pulse Oximetry 94 05/15/25 20:52 Temperature 36.6 C 05/16/25 02:26 Pulse Rate 80 05/16/25 02:26 Respiratory Rate 17 05/16/25 02:26 Blood Pressure 144/78 H 05/16/25 02:26 Pulse Oximetry 98 05/16/25 02:26 Procedures Laceration Laceration 1: Date: 05/16/25 Time: 00:19 Site: chest Side (If applicable): left Size (cm): 3 Description: linear and clean Depth: simple, single layer Local Anesthetic: none Pre-repair: wound explored, irrigated and deep structures intact ====== Skin Level ====== Skin layer closed with: dermabond and steri strips ====== Subcutaneous Layer ====== ====== Muscle Layer ====== ====== Tendon Layer ====== Dressing: Non adherent dressing applied with bandage over top. MDM - Fall MDM Narrative Medical decision making narrative: 89-year-old male presenting to the emergency department after mechanical slip and fall [facility]. Patient is undergoing hospice care at the facility. He states he tripped on a blanket on the ground and landed onto his left side striking his chest on the ground as well as his right hand when he tried to catch himself. He sustained a superficial laceration. Did not lose consciousness and has been acting appropriately with normal mental status with any nausea or vomiting. Presents with family member at bedside. Patient's complain of some left-sided rib pain as well as a skin tear to his right hand with minor pain around the thumb. Tetanus is up-to-date. Patient is DNR, DNI, comfort measures only with hospice care. There is a skin tear that is superficial in the right wrist near the base of the thumb, x-rays of the thumb and chest with ribs were obtained for evaluation although clinically he is well-appearing with no signs of significant trauma. He has normal vital signs and is mentating appropriately at his baseline mentation A&O x4. Given his comfort measures and hospice care status no indications for further advanced imaging given lack of traumatic findings, neurological deficit, hemodynamic instability or acute concern on exam. Patient was given oxycodone for pain control, ice pack applied and wound was repaired at bedside with Steri-Strips and skin glue. Family at bedside felt comfortable with the plan and will be able to drive him back to his facility upon discharge. X-rays of the hand appear to have a small sesamoid fracture of the left hand. Patient was placed into a thumb spica splint and his pain is under control. Remains neurovascularly intact and pain is under control. X-ray shows no rib fractures or hemo/pneumothorax. Will be sent home to his facility with daughter driving him home. They felt comfortable the plan will be given orthopedics referral for follow-up and repeat imaging. Medical Records Attestation: I reviewed the patient's medical records. Lab Data Attestation: I reviewed the patient's lab results. Imaging Data Attestation: I personally reviewed and interpreted this imaging study as follows: My impression: Left thumb sesamoid fracture, no pneumothorax or hemothorax, no rib fracture. Radiologist's impression: Impressions Chest X-Ray 05/15/25 22:27 IMPRESSION: No focal consolidation or pneumothorax. 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 Small bilateral pleural effusions versus chronic pleural scarring. Pleural calcifications as can be seen with asbestosis or prior hemothorax. Discharge Plan Discharge Clinical Impression: Fall, Fracture of sesamoid bone of hand, Avulsion of skin of left wrist, Contusion of rib on left side Patient Disposition: Home Condition: Stable Instructions: Antibiotic Form, Thumb Fracture (ED), Skin Avulsion (ED), Rib Contusion (ED) Additional Instructions: Your x-rays show a small fracture of the sesamoid bone of your left thumb. We have placed in a thumb spica splint for stability and pain control. Your ribcage and chest did not show any broken bones or rib fractures. Rib contusions and bruising are very similar in pain level and we will treat this with pain medications and topical therapy. Follow-up with your regular doctor and orthopedic provider we have referred you to. Return with any emergent concerns. Patient Language: Maori Prescriptions: New lidocaine 5 % adhesive patch,medicated 1 patch topical DAILY Qty: 15 0RF Rx Instructions: leave on most painful area for up to 12 hrs tramadol 50 mg tablet 50 mg PO Q6H PRN (Reason: pain) Qty: 20 0RF No Action pravastatin 40 mg tablet 40 mg PO HS prednisone 5 mg tablet 5 mg PO DAILY warfarin 5 mg tablet 5 mg PO DAILY Rx Instructions: Take 1 tablet by mouth on , , and sat and take 1 1/2 tablet the rest of the week in the evenings levothyroxine 150 mcg tablet 150 mcg PO DAILY folic acid 1 mg tablet 1 mg PO DAILY metoprolol tartrate 25 mg tablet 25 mg PO DAILY fenofibrate nanocrystallized 145 mg tablet 145 mg PO DAILY aspirin 81 mg Tablet,Delayed Release (Dr/Ec) 81 mg PO DAILY Adults Multivitamin 1 tablet PO DAILY ferrous sulfate 325 mg (65 mg iron) Tablet 325 mg PO DAILY glucosamine-chondroitin [Osteo Bi-Flex] 250-200 mg Tablet 1 tablet PO DAILY furosemide 40 mg Tablet 40 mg PO DAILY 30 Days Qty: 30 0RF isosorbide mononitrate 30 mg Tablet Extended Release 24 Hr 30 mg PO QAM 30 Days Qty: 30 0RF amoxicillin-pot clavulanate 875-125 mg tablet 1 tablet PO Q12H 5 Days Qty: 10 0RF azithromycin 250 mg tablet 250 mg PO DAILY 3 Days Qty: 3 0RF Rx Instructions: start on day 2 of therapy meclizine 12.5 mg tablet 12.5 mg PO TID PRN (Reason: dizziness) Qty: 10 0RF Follow-up/Referrals: PHYSICIAN,SUPERVISOR PUMPING [Primary Care Provider] - Cornelius Francois MD [Physician] - 2 Weeks (sesamoid fx s/p fall) Time of Disposition: 01:56
[2025-05-16 02:26] VITALS: BP 144/78; PULSE 80; RESP 17; TEMP 36.6; O2SAT 98
== END 2025-05-16 02:32 | disposition hospice, home (50) ==
PROVIDERS: Emergency Provider Student in an Organized Health Care Education/Training Program
DX: S62.501A Fracture of unspecified phalanx of right thumb, initial encounter for closed fracture (principal); S61.501A Unspecified open wound of right wrist, initial encounter; S20.212A Contusion of left front wall of thorax, initial encounter; I12.9 Hypertensive chronic kidney disease with stage 1 through stage 4 chronic kidney disease, or unspecified chronic kidney disease; N18.9 Chronic kidney disease, unspecified; I25.10 Atherosclerotic heart disease of native coronary artery without angina pectoris; E78.5 Hyperlipidemia, unspecified; E03.9 Hypothyroidism, unspecified; Z95.2 Presence of prosthetic heart valve; Z96.651 Presence of right artificial knee joint; Z87.891 Personal history of nicotine dependence; Z66 Do not resuscitate; W18.09XA Striking against other object with subsequent fall, initial encounter
CPT/HCPCS: 12002; 29125; 71046; 73120; 99284